=== PATIENT | male | born 1945 | race Caucasian/White ===

== ENCOUNTER 2019-12-10 18:41 | Observation (INO) | payer MEDICARE, SELFPAY ==
--- NOTE | ~2019-12-10 | CT_ITS ---
EXAMINATION: CTA chest PE protocol DATE: 12/10/2019 21:26 INDICATION: Midsternal chest pain/pressure. Shortness of breath. Positive d-dimer. TECHNIQUE: Computed tomography (CT) pulmonary angiogram of the chest was performed with 100 mL Omnipa que-350 intravenous contrast. Additional 3D reconstructions utilizing coronal maximum intensity proje ction (MIP) were performed. Automated exposure control and iterative reconstruction technique were em ployed. The dose-length product was 485.29 mGy-cm. COMPARISON: None FINDINGS: Could contrast opacification of the pulmonary arteries. There is moderate streak artifact from dense contrast in the superior vena cava and right atrium. Is also moderate to severe scattered respiratory motion artifact. Together this decreases sensitivity given in the lobar pulmonary arteries and rende rs evaluation in the segmental and more peripheral subsegmental pulmonary arteries is essentially non diagnostic. No definitive pulmonary embolism identified small bilateral pleural effusions. Scattered linear and bandlike discoid atelectasis in the left and right middle and bilateral lower lobes. Heart size is normal. There is a large pericardial effusion with diffuse mild smooth thickening of the per icardium. There is no leftward bowing of the ventricular septum to suggest tamponade not physiology. Atherosclerotic coronary artery calcifications. Aortic valve calcification. Thoracic aorta is normal in caliber with no dissection. Interval increase in size of a previously 2.3 x 1.1 cm subcarinal lymp h node currently measuring 3.1 x 2.1 cm. Several calcified gallstones within the normal gallbladder. Splenic calcifications consistent with old granulomatous disease. Mild thoracic spondylosis. IMPRESSION: 1. No central pulmonary embolism through the lobar pulmonary arteries. More peripheral assessment is essentially nondiagnostic due to moderate to severe respiratory motion and moderate streak artifact. 2. Small bilateral pleural effusions with scattered discoid atelectasis in the lingula, right middle and bilateral lower lobes. 3. Large pericardial effusion with mild smooth thickening of the pericardium but no leftward bowing o f the ventricular septum to suggest tamponade. 4. Interval enlargement of a now 3.1 x 2.1 cm subcarinal lymph node which could be reactive, lymphoma or metastatic. 5. Cholelithiasis. Reviewed, dictated and finalized at location A. ICATING MACHINE OPERATOR IMPRESSION: 1. No central pulmonary embolism through the lobar pulmonary arteries. More per ipheral assessment is essentially nondiagnostic due to moderate to severe respi ratory motion and moderate streak artifact. 2. Small bilateral pleural effusions with scattered discoid atelectasis in the lingula, right middle and bilateral lower lobes. 3. Large pericardial effusion with mild smooth thickening of the pericardium bu t no leftward bowing of the ventricular septum to suggest tamponade. 4. Interval enlargement of a now 3.1 x 2.1 cm subcarinal lymph node which could be reactive, lymphoma or metastatic. 5. Cholelithiasis.
--- NOTE | ~2019-12-10 | XR_ITS ---
EXAMINATION: XR chest 2V DATE: 12/10/2019 19:29 INDICATION: Hypoxia. Midsternal chest pressure and chest pain on exertion. TECHNIQUE: PA and lateral views of the chest were obtained. COMPARISON: Chest CT dated 08/06/2018 FINDINGS: Airspace opacities in the bilateral lower lung zones, left greater than right. Very small bilateral p leural effusions. No pneumothorax. Cardiomegaly. Mild thoracic kyphosis with mild to moderate spondyl osis. IMPRESSION: 1. Opacities in the bilateral lower lung zones, left greater than right which could represent pneumon ia, atelectasis, mild pulmonary edema or some combination thereof. 2. Small bilateral pleural effusions. 3. Cardiomegaly. Reviewed, dictated and finalized at location A. K ENGINE ASSEMBLER IMPRESSION: 1. Opacities in the bilateral lower lung zones, left greater than right which c ould represent pneumonia, atelectasis, mild pulmonary edema or some combination thereof. 2. Small bilateral pleural effusions. 3. Cardiomegaly.
--- NOTE | 2019-12-10 18:55 | ECG_ITS ---
Measurements Intervals [place] Rate: 104 P: 2 MN: 120 QRS: -14 QRSD: 97 T: 60 QT: 302 QTc: 398 Interpretive Statements SINUS TACHYCARDIA POSSIBLE LEFT ATRIAL ENLARGEMENT POSSIBLE LEFT VENTRICULAR HYPERTROPHY DELAYED PRECORDIAL R/S TRANSITION BASELINE WANDER- V4-V6 BORDERLINE ECG Electronically Signed On 12-11-2019 15:42:53 MECHANICAL UNIT REPAIRER by Jah Tomas D.O.
[2019-12-10 19:08] VITALS: BP 173/88; PULSE 110; RESP 33; TEMP 37.4; O2SAT 95
[2019-12-10 19:13] VITALS: PULSE 110
[2019-12-10 19:15] LABS: Basophils Absolute Auto 0.04 K/mm3 (0.00-0.10); Basophils Percent Auto 0.4 % (0.0-1.0); Eosinophils Absolute Auto 0.19 K/mm3 (0.02-0.50); Eosinophils Percent Auto 1.9 % (1.0-6.0); Hematocrit 30.6 % (37.0-46.0); Hemoglobin 9.7 g/dL (12.4-15.3); Immature Granulocyte Absolute 0.04 K/mm3 (0.00-0.00); Immature Granulocyte Percent A 0.4 % (0.0-0.0); Lymphocytes Percent Auto 6.1 % (18.0-42.0); Mean Corpuscular HGB Conc 31.7 g/dL (32.0-36.0); Mean Corpuscular Hemoglobin 27.7 pg (27.0-31.0); Mean Corpuscular Volume 87.4 fL (78.0-102.0); Mean Platelet Volume 8.8 fl (8.7-11.0); Monocytes Absolute Auto 0.27 K/mm3 (0.10-0.90); Monocytes Percent Auto 2.8 % (2.0-11.0); Neutrophils Absolute Auto 8.7 K/mm3 (1.7-7.2); Neutrophils Percent Auto 88.4 % (50.0-70.0); Platelet Count Result 549 K/mm3 (150-420); White Blood Count 9.8 K/mm3 (4.8-10.8)
--- NOTE | 2019-12-10 19:27 | ED.CHESTPAIN ---
HPI - Chest Pain General Chief Complaint: Chest Pain Stated Complaint: tightness in chest and SOB Source: patient Mode of arrival: ambulatory Limitations: no limitations History of Present Illness HPI narrative: 74-year-old male presents with some chest tightness left chest area started off and on over the last couple of days this morning became more intense left chest area with deep inspiration there is no cough no shortness of breath no nausea vomiting no diaphoresis, the patient has not had any fever or chills. Patient has a history of hyperlipidemia hypothyroidism, former smoker quit 14 years ago, has a brother with heart disease in his 60s. complaint: chest pain, chest heaviness and chest discomfort Onset (ago): day(s) Timing of current episode: episodic Onset: during rest and during exertion Pain location: left chest Pain radiation: none Severity: mild Quality: tightness Relieving factors: nothing Exacerbating factors: exertion and inspiration Risk Factors Coronary artery disease risk factors: hyperlipidemia Related Data Home Medications Medication Instructions Recorded Confirmed folic acid 1 mg PO DAILY 12/10/19 12/10/19 levothyroxine 200 mcg PO DAILY 12/10/19 12/10/19 lisinopril 5 mg PO DAILY 12/10/19 12/10/19 methotrexate sodium 12.5 mg PO WEEKLY 12/10/19 12/10/19 pravastatin 40 mg PO DAILY 12/10/19 12/10/19 Allergies Allergy/AdvReac Type Severity Reaction Status Date / Time coconut Allergy Swelling Verified 12/10/19 19:42 of Lip/Tongue/Throat Review of Systems Review of Systems: All systems reviewed & are unremarkable except as noted in HPI and below PMFSH Past Medical History Medical History HLD (hyperlipidemia) HTN (hypertension) Rheumatoid arteritis Exam Const: General: no acute distress and alert Orientation/consciousness: patient oriented x3 HENMT: Head: normal to inspection Eyes: Conjunctivae: conjunctivae normal Pupils: Equal, round and reactive pupils present Neck: Neck: normal visual inspection Chest: Chest palpation & inspection: normal inspection of the chest Resp: Effort & Inspection: normal respiratory effort Cardio: Rate: regular rate and tachycardic Rhythm: regular rhythm GI: Auscultation: normal bowel sounds : Testes: Testes normal Back/Spine/Pelvis: Back: no CVA tenderness Skin: General skin exam: normal color Rashes: no rashes Neuro: General: patient oriented x3, moves all extremities and no meningeal signs Extrem: General: normal to inspection Psych: Mental Status: mental status grossly normal Course Vital Signs Vital signs: Vital Signs Temperature 37.4 C 12/10/19 19:08 Pulse Rate 110 H 12/10/19 19:08 Respiratory Rate 33 H 12/10/19 19:08 Blood Pressure 173/88 H 12/10/19 19:08 Pulse Oximetry 95 12/10/19 19:08 Temperature 37.4 C 12/10/19 19:08 Pulse Rate 110 H 12/10/19 19:13 Respiratory Rate 33 H 12/10/19 19:08 Blood Pressure 173/88 H 12/10/19 19:08 Pulse Oximetry 95 12/10/19 19:08 MDM - Chest Pain Lab Data Attestation: I reviewed the patient's lab results. Result diagrams: 12/10/19 19:11 12/10/19 19:11 Labs: Lab Results 12/10/19 12/10/19 12/10/19 Range/Units 19:11 19:11 19:11 WBC 9.8 (4.8-10.8) K/mm3 RBC 3.50 L (4.70-6.10) M/mm3 Hgb 9.7 L (12.4-15.3) g/dL Hct 30.6 L (37.0-46.0) % MCV 87.4 (78.0-102.0) fL MCH 27.7 (27.0-31.0) pg MCHC 31.7 L (32.0-36.0) g/dL RDW 16.0 H (11.6-14.4) % Plt Count 549 H (150-420) K/mm3 MPV 8.8 (8.7-11.0) fl Immature Gran % (Auto) 0.4 H (0.0-0.0) % Neut % (Auto) 88.4 H (50.0-70.0) % Lymph % (Auto) 6.1 L (18.0-42.0) % Pine % (Auto) 2.8 (2.0-11.0) % Eos % (Auto) 1.9 (1.0-6.0) % Baso % (Auto) 0.4 (0.0-1.0) % Lymph # (Auto) 0.60 L (1.10-4.50) K/mm3 Pine # (Auto) 0.27 (0.10-0.90) K/mm3
[2019-12-10 19:29] LABS: INR 1.1; Partial Thromboplastin Time 29.1 SEC (22.3-31.6); Prothrombin Time 10.9 Seconds (9.64-11.0)
[2019-12-10 19:41] LABS: Alanine Aminotransferase 41 U/L (16-63); Albumin Level 2.4 g/dL (3.4-5.0); Alkaline Phosphatase 77 U/L (46-116); Anion Gap 18.4 mmol/L (7-16); Aspartate Amino Transferase 30 U/L (15-37); Bilirubin,Total 0.3 mg/dL (0.00-1.00); Blood Urea Nitrogen 30 mg/dL (7-18); Calcium 8.6 mg/dL (8.5-10.1); Carbon Dioxide 21 mmol/L (21-32); Chloride 103 mmol/L (98-108); Estimated CRCL calculation 43 ml/min; Estimated Glomerular Filt Rate 43; Glucose 129 mg/dL (70-99); Osmolality Calculated 294 mOsm/kg (285-295); Potassium 4.4 mmol/L (3.5-5.1); Sodium 138 mmol/L (136-145); Total Protein 8.1 g/dL (6.4-8.2)
[2019-12-10 19:42] LABS: Thyroid Stimulating Hormone 5.77 uIU/mL (0.36-3.74); Troponin I < 0.02 ng/mL (0.00-0.056)
[2019-12-10 19:50] VITALS: BP 147/69; PULSE 106; RESP 22; O2SAT 97
[2019-12-10] MEDS: SODIUM CHLORIDE 0.9% IV 1,000 ML 999 ML IV CONT (20:08)
--- NOTE | 2019-12-10 20:11 | PC.NURSE ---
OBSERVATION BED REQUEST TO MARQUISE REPLENISHMENT ANALYST AT 2007, RM 205 PROVIDED. REGISTRATION NOTIFIED.
--- NOTE | 2019-12-10 20:23 | PC.NURSE ---
TELEPHONE REPORT PROVIDED TO CARON GARCIA AT 2017.
[2019-12-10 20:24] VITALS: BP 151/87; PULSE 103; RESP 22; O2SAT 98
--- NOTE | 2019-12-10 20:44 | PC.NURSE ---
AZITHROMYCIN STILL INFUSING WHEN PT WAS TAKEN TO ROOM 205, SAMI REARDON AWARE
[2019-12-10 20:52] LABS: D Dimer 6.84 mg/L (0.19-0.50)
--- NOTE | 2019-12-10 20:57 | PC.NURSE ---
notified of elevated DDimer result of 6.84. New order received for CTA.
[2019-12-10 21:10] VITALS: BMI 27.2
[2019-12-10] MEDS: SODIUM CHLORIDE 0.9% IV 1,000 ML 100 ML IV CONT (21:34)
--- NOTE | 2019-12-10 22:03 | PC.NURSE ---
MD up to floor to review CTA result and speak with patient and family.
[2019-12-10 22:13] VITALS: BP 147/78; PULSE 108; RESP 24; TEMP 37.4; O2SAT 98
[2019-12-11] VITALS (8 sets, daily range): BP systolic 117–119; BP diastolic 60–68; PULSE 90–106; RESP 16–20; TEMP 36.3–37.4; O2SAT 92–98
[2019-12-11 02:06] LABS: Troponin I < 0.02 ng/mL (0.00-0.056)
[2019-12-11] MEDS: LEVOTHYROXINE SODIUM 100 MCG TABLET 200 MCG PO (05:41)
[2019-12-11] MEDS: LEVALBUTEROL NEB 1.25 MG/3 ML INHALATION (06:26)
[2019-12-11] MEDS: SODIUM CHLORIDE 0.9% IV 1,000 ML 100 ML IV CONT (07:45)
[2019-12-11 08:26] LABS: Basophils Absolute Auto 0.04 K/mm3 (0.00-0.10); Basophils Percent Auto 0.4 % (0.0-1.0); Eosinophils Absolute Auto 0.03 K/mm3 (0.02-0.50); Eosinophils Percent Auto 0.3 % (1.0-6.0); Hematocrit 26.1 % (37.0-46.0); Hemoglobin 8.5 g/dL (12.4-15.3); Immature Granulocyte Absolute 0.04 K/mm3 (0.00-0.00); Immature Granulocyte Percent A 0.4 % (0.0-0.0); Lymphocytes Absolute Auto 0.88 K/mm3 (1.10-4.50); Lymphocytes Percent Auto 7.7 % (18.0-42.0); Mean Corpuscular HGB Conc 32.6 g/dL (32.0-36.0); Mean Corpuscular Hemoglobin 28.1 pg (27.0-31.0); Mean Corpuscular Volume 86.1 fL (78.0-102.0); Mean Platelet Volume 8.9 fl (8.7-11.0); Monocytes Absolute Auto 0.51 K/mm3 (0.10-0.90); Monocytes Percent Auto 4.5 % (2.0-11.0); Neutrophils Absolute Auto 9.9 K/mm3 (1.7-7.2); Neutrophils Percent Auto 86.7 % (50.0-70.0); Platelet Count Result 472 K/mm3 (150-420); Red Blood Count 3.03 M/mm3 (4.70-6.10); Red Cell Distribution Width 16.6 % (11.6-14.4); White Blood Count 11.4 K/mm3 (4.8-10.8)
[2019-12-11 08:56] LABS: Hemoglobin A1C 6.7 % (<5.7)
[2019-12-11 08:57] LABS: Troponin I < 0.02 ng/mL (0.00-0.056)
[2019-12-11 08:58] LABS: Free T4 Free Thyroxine 1.37 ng/dL (0.76-1.46)
[2019-12-11] MEDS: lisinopriL 5 MG TABLET PO (09:14)
[2019-12-11] MEDS: FOLIC ACID 1 MG TABLET PO (09:14)
[2019-12-11] MEDS: IBUPROFEN 400 MG TABLET 800 MG PO (09:14)
[2019-12-11] MEDS: PRAVASTATIN SODIUM 20 MG TABLET 40 MG PO (09:14)
[2019-12-11 09:23] LABS: BNP 283 pg/mL (0-100)
--- NOTE | 2019-12-11 10:45 | PCDIET ---
Report called to Telma at [facility]. Patient will be going to room Crew 15.
--- NOTE | 2019-12-11 12:30 | PC.NURSE ---
[facility] here to transport patient to [facility]. Patient transferred to [facility] and left by EMS
--- NOTE | 2019-12-11 12:40 | PM.IMHP ---
H&P: HPI History of Present Illness Chief complaint: tightness in chest and SOB Narrative: Shantanu Conrad is a 74 year old male that was admitted for chest tightness and shortness of breath . patient has a past medical history of hypertension hyperlipidemia and rheumatoid arthritis. According to patient yesterday he did his 30 minutes walk and felt a bit uncomfortable with shortness of breath. Later that day he went to his granddaughter's volleyball game. according to patient he was unable to stay for the full length of the volleyball game due to shortness of breath and him being uncomfortable which chest tightness. at that time patient asked his to take him home so that he can get some rest, his suggested that they proceed to the ED. Patient is being admitted for pneumonia and pericardial effusion. While in the ED patient's D-dimer was elevated CT was completed. CT indicated a large pericardial effusion . It also indicated in large lymph Nodes 3.1 x 2.1 which could be reactive, lymphoma or metastatic, his chest x-ray did indicate possible pneumonia with a small bilateral pleural effusion and mild pulmonary edema. Patient white count was 11.4 in his BNP was 283 troponins were negative blood cultures were collected EKG indicated sinus tachycardia with heart rates in the 104 vital signs are 37.4 heart rate 110, respiratory rate 33, blood pressure 173/88, 95% air. Hemoglobin on admission 9.7. Dr. Holt was contacted by ED doctor. requested occult blood. Unable to obtain occult blood due to patient transferring to outside hospital. This patient will be transferred to outside hospital for treatment of pericardia effusion. Patient would like to go to [facility] in [place]. Patient has been accepted to [facility] in [place] by . patient is stable on discharge and is in no obvious distress. he will be transported to [facility] via EMS Review of Systems Constitutional: Constitutional: Denies chills, Denies fatigue, Denies fever(s), Denies headache(s) and Denies weakness Cardiovascular: Cardiovascular: Denies chest pain at rest, Denies chest pain with activity, Denies syncope, Denies palpitations, Denies dyspnea on exertion, Denies orthopnea and Reports other ( chest tightness) Respiratory: Respiratory: Denies chest congestion, Denies cough, Denies hemoptysis, Reports dyspnea, Reports dyspnea on exertion, Denies wheezing and Reports other ( shortness of breath) Gastrointestinal: Gastrointestinal: Reports no additional gastrointestinal complaints Musculoskeletal: Musculoskeletal: Reports no additional musculoskeletal complaints Neurologic: Reports system reviewed and no additional complaints, except as documented, Denies vertigo, Denies dizziness, Denies syncope, Denies headache(s), Denies loss of vision and Denies numbness Psychiatric: Psychiatric: Reports no additional psychiatric complaints and Denies confusion [facility] Past Medical History Medical History HLD (hyperlipidemia) HTN (hypertension) Rheumatoid arteritis Social History Social History Smoking status: Former smoker Tobacco type: cigarettes Second hand tobacco smoke exposure: No Alcohol intake: never Substance use: former Substance use type: does not use Gender identity (if verbalized by the patient): Male Spiritual care concerns: No Agree to blood products: Yes Meds Home Medications and Allergies Home Medications Medication Instructions Recorded Confirmed Type folic acid 1 mg PO DAILY 12/10/19 12/10/19 History levothyroxine 200 mcg PO DAILY 12/10/19 12/10/19 History lisinopril 5 mg PO DAILY 12/10/19 12/10/19 History methotrexate sodium 12.5 mg PO WEEKLY 12/10/19 12/10/19 History pravastatin 40 mg PO DAILY 12/10/19 12/10/19 History azithromycin [Zithromax] 500 mg IV Q24H #30 ea 12/11/19 Rx
--- NOTE | 2019-12-11 13:02 | PM.DS ---
DS: Diagnosis Discharge Diagnosis (1) Pneumonia: Qualifiers: Laterality: left Lung location: lower lobe of lung Pneumonia type: due to unspecified organism Qualified Code(s): J18.9 - Pneumonia, unspecified organism <Hernandezlester JanethROCHELLE Vyas - Last Filed: 12/11/19 13:03> Code(s): J18.9 - Pneumonia, unspecified organism <ROCHELLE Mascorro - Last Filed: 12/11/19 13:03> Status: Acute <Myriam JanethROCHELLE Vyas - Last Filed: 12/11/19 13:03> Assessment and Plan: CT of the chest indicate pneumonia with mouth pulmonary edema patient placed on Rocephin patient will transfer to [facility] <ROCHELLE Mascorro - Last Filed: 12/11/19 13:03> (2) HTN (hypertension): Code(s): I10 - Essential (primary) hypertension <ROCHELLE Mascorro - Last Filed: 12/11/19 13:03> Status: Acute <ROCHELLE Mascorro - Last Filed: 12/11/19 13:03> Assessment and Plan: patient blood pressure 117/68 stable - continue home antihypertension medication <ROCHELLE Mascorro - Last Filed: 12/11/19 13:03> (3) HLD (hyperlipidemia): Code(s): E78.5 - Hyperlipidemia, unspecified <ROCHELLE Mascorro - Last Filed: 12/11/19 13:03> Status: Acute <ROCHELLE Mascorro - Last Filed: 12/11/19 13:03> Assessment and Plan: continue statins <ROCHELLE Mascorro - Last Filed: 12/11/19 13:03> (4) Pericardial effusion: Code(s): I31.3 - Pericardial effusion (noninflammatory) <GOLDEN MascorroC - Last Filed: 12/11/19 13:03> Status: Acute <ROCHELLE Mascorro - Last Filed: 12/11/19 13:03> Assessment and Plan: -CTA indicated large pericardial effusion - patient is stable at this time - patient transferred to [facility] accepted by <ROCHELLE Mascorro - Last Filed: 12/11/19 13:03> DS: Summary Hospital Course Hospital Course: Shantanu Conrad is a 74 year old male that was admitted for chest tightness and shortness of breath . patient has a past medical history of hypertension hyperlipidemia and rheumatoid arthritis. According to patient yesterday he did his 30 minutes walk and felt a bit uncomfortable with shortness of breath. Later that day he went to his granddaughter's volleyball game. according to patient he was unable to stay for the full length of the volleyball game due to shortness of breath and him being uncomfortable which chest tightness. at that time patient asked his to take him home so that he can get some rest, his suggested that they proceed to the ED. Patient is being admitted for pneumonia and pericardial effusion. While in the ED patient's D-dimer was elevated CT was completed. CT indicated a large pericardial effusion . It also indicated in large lymph Nodes 3.1 x 2.1 which could be reactive, lymphoma or metastatic, his chest x-ray did indicate possible pneumonia with a small bilateral pleural effusion and mild pulmonary edema. Patient white count was 11.4 in his BNP was 283 troponins were negative blood cultures were collected EKG indicated sinus tachycardia with heart rates in the 104 vital signs are 37.4 heart rate 110, respiratory rate 33, blood pressure 173/88, 95% air. Hemoglobin on admission 9.7. Dr. Holt was contacted by ED doctor. requested occult blood. Unable to obtain occult blood due to patient transferring to outside hospital. This patient will be transferred to outside hospital for treatment of pericardia effusion. Patient would like to go to [facility] in [place]. Patient has been accepted to [facility] in [place] by . patient is stable on discharge and is in no obvious distress <ROCHELLE Mascorro - Last Filed: 12/11/19 13:03> Time Spent with Patient Time attestation: Total time spent providing and/or coordinating discharge services: <ROCHELLE Mascorro
== END 2019-12-11 12:30 | disposition short-term general hospital (02) ==
LOC: CHSED 20:03 → CHS2ND 20:12
PROVIDERS: Nurse Practitioner; Admitting Provider Emergency Medicine; Emergency Provider Emergency Medicine; PCP Internal Medicine; Visit Provider Emergency Medicine
DX: I31.3 Pericardial effusion (noninflammatory) (principal); J18.9 Pneumonia, unspecified organism; R59.0 Localized enlarged lymph nodes; E78.5 Hyperlipidemia, unspecified; I10 Essential (primary) hypertension; M06.9 Rheumatoid arthritis, unspecified; K80.20 Calculus of gallbladder without cholecystitis without obstruction; Z79.899 Other long term (current) drug therapy
CPT/HCPCS: 36415; 71046; 71275; 80053; 83036; 83880; 84439; 84443; 84484; 85025; 85380; 85610; 85730; 87040; 93005; 94640; 96361; 96365; 96368; 99284; 99285; A9270; G0378; J0456; J0696; J7030; Q9965

== ENCOUNTER 2020-01-01 07:53 | Outpatient (CLI) | payer MEDICARE, SELFPAY ==
--- NOTE | ~2020-01-01 | CT_ITS ---
EXAMINATION: CT chest w con DATE: 01/01/2020 08:55 INDICATION: Pneumonia, lymphadenopathy TECHNIQUE: Transaxial computed tomographic images of the chest were obtained after the administration of 75 cc of Omnipaque 350 intravenous contrast. The dose-length product (DLP) was 236.64 mGy-cm. Ite rative reconstruction was used. COMPARISON: 12/10/2019 FINDINGS: Atelectasis and airspace opacities of the lower lobes persists but has improved since the c omparison examination. There is a small stable right pleural effusion. A left pleural effusion has sl ightly increased in size and demonstrates some loculation. There is no pneumothorax. The heart size i s normal. There is interval decrease in size of the previously described pericardial effusion, now sm all. The previously described 3.1 x 2.1 cm subcarinal lymph node now measures 1.9 x 1.1 cm. Cholelith iasis is again noted. There is mild thoracic spondylosis. IMPRESSION: 1. Persistent but improved airspace opacities of the lung bases, consistent with resolving atelectasi s. 2. Decrease in size of subcarinal lymph node, likely resolving reactive change. 3. Slight increase in size of a left pleural effusion which now demonstrates some loculation. 4. Small but decreased pericardial effusion. Reviewed, dictated and finalized at location A. INSPECTOR IMPRESSION: 1. Persistent but improved airspace opacities of the lung bases, consistent wit h resolving atelectasis. 2. Decrease in size of subcarinal lymph node, likely resolving reactive change. 3. Slight increase in size of a left pleural effusion which now demonstrates so me loculation. 4. Small but decreased pericardial effusion.
[2020-01-01 08:13] LABS: Estimated Glomerular Filt Rate 45
== END 2020-01-01 07:54 | disposition home or self-care (01) ==
PROVIDERS: PCP Internal Medicine
DX: R59.9 Enlarged lymph nodes, unspecified (principal)
CPT/HCPCS: 71260; Q9965

== ENCOUNTER 2020-01-09 11:16 | Emergency (ER) | payer MEDICARE, SELFPAY ==
--- NOTE | ~2020-01-09 | XR_ITS ---
EXAMINATION: XR chest 2V DATE: 01/09/2020 13:11 INDICATION: Dyspnea. TECHNIQUE: Frontal and lateral views of the chest were obtained. COMPARISON: Chest 2 views 12/10/2019, chest CT 01/01/2020 FINDINGS: There is a small right pleural effusion. There is a moderate-sized loculated left pleural e ffusion. There are airspace opacities in right lower lung zone and left mid and lower lung zones. No pneumothorax. The heart size is normal. IMPRESSION: 1. Small right pleural effusion and worsened moderate-sized loculated left pleural effusion. 2. Airspace opacities in right lower lung zone and left mid and lower lung zones with worsening on th e left, consistent with atelectasis versus pneumonia. Reviewed, dictated and finalized at location A. [employer] IMPRESSION: 1. Small right pleural effusion and worsened moderate-sized loculated left pleu ral effusion. 2. Airspace opacities in right lower lung zone and left mid and lower lung zone s with worsening on the left, consistent with atelectasis versus pneumonia.
[2020-01-09 11:48] VITALS: BP 161/89; PULSE 97; RESP 22; TEMP 36.9; O2SAT 95
--- NOTE | 2020-01-09 11:59 | ED.SOB ---
HPI - SOB/Dyspnea General Chief Complaint: Shortness of Breath/Dyspnea Stated Complaint: pneumonia Time Seen by Provider: 01/09/20 11:54 Source: patient and RN notes reviewed Mode of arrival: ambulatory Limitations: no limitations History of Present Illness HPI Narrative: patient presents with increasing shortness of breath. Going on for couple of days. He says that he normally walks 25-30 minutes every day. He walked 2 days ago but then became short of breath towards the end of the walk. Then yesterday he only walk a few feet and was significantly dyspneic. He was recently in the hospital in [facility] and he also had a small pericardial effusion. He had some blood work done which showed an elevated white blood cell count. He also has a history of iron deficiency anemia and gets on and off constipation with use of his iron supplement. MD elicited complaint: shortness of breath Pertinent past history: pneumonia Onset (ago): day(s) (2) Context: recent illness and occurred during exertion Timing: intermittent Severity: moderate Exacerbating factors: exertion Relieving factors: rest Treatment prior to arrival: none Related Data Home oxygen amount: none Home Medications Medication Instructions Recorded Confirmed folic acid 1 mg PO DAILY 12/10/19 01/09/20 lisinopril 5 mg PO DAILY 12/10/19 01/09/20 methotrexate sodium 12.5 mg PO WEEKLY 12/10/19 01/09/20 pravastatin 40 mg PO DAILY 12/10/19 01/09/20 Allergies Allergy/AdvReac Type Severity Reaction Status Date / Time coconut Allergy Swelling Verified 12/10/19 19:42 of Lip/Tongue/Throat Review of Systems Constitutional: Constitutional: Denies chills and Denies fever(s) ENT: Reports system reviewed and no additional complaints, except as documented Cardiovascular: Cardiovascular: Reports no additional cardiovascular complaints and Denies chest pain Respiratory: Respiratory: Denies cough Gastrointestinal: Gastrointestinal: Reports constipation ( Intermittent) Musculoskeletal: Musculoskeletal: Reports no additional musculoskeletal complaints Neurologic: Reports system reviewed and no additional complaints, except as documented Hematologic/Lymphatic: Hematologic/Lymphatic: Reports no additional hematologic/lymphatic complaints Allergic/Immunologic: Allergic/Immunologic: Reports no additional allergic/immunologic complaints [facility] Past Medical History Medical History (Updated 01/09/20 @ 15:59 by Garrett Villanueva MD) HLD (hyperlipidemia) HTN (hypertension) Rheumatoid arteritis Surgical History Surgical History (Updated 01/09/20 @ 14:38 by Garrett Villanueva MD) History of appendectomy History of prostatectomy Social History Social History Smoking status: Former smoker Tobacco type: cigarettes Second hand tobacco smoke exposure: No Alcohol intake: never Substance use: former Substance use type: does not use Gender identity (if verbalized by the patient): Male Spiritual care concerns: No Agree to blood products: Yes Exam Const: General: healthy appearing, no acute distress and alert Nutritional Appearance: well nourished Orientation/consciousness: patient oriented x3 HENMT: Head: normal to inspection Ears: external ears normal General nose exam: Normal external nose present Face and sinus: normal facial exam Eyes: Conjunctivae: conjunctivae normal Pupils: Equal, round and reactive pupils present EOM: EOMs intact bilaterally Neck: Neck: normal visual inspection and no lymphadenopathy Resp: Effort & Inspection: normal respiratory effort Auscultation: rhonchi left upper and right lower and breath sounds absent on th left (middle and base) GI: GI Palp: Yes Soft to palpation and No Tenderness to palpation present (GI) Auscultation: normal bowel sounds Back/Spine/Pelvis: Cervical Spine: cervical ROM normal Thoracic/Lumbar Spine: thoraco-lumbar ROM normal
[2020-01-09 12:00] VITALS: PULSE 96
[2020-01-09 13:01] LABS: Basophils Absolute Auto 0.07 K/mm3 (0.00-0.10); Basophils Percent Auto 0.5 % (0.0-1.0); Eosinophils Absolute Auto 0.11 K/mm3 (0.02-0.50); Eosinophils Percent Auto 0.8 % (1.0-6.0); Hematocrit 28.4 % (37.0-46.0); Immature Granulocyte Absolute 0.13 K/mm3 (0.00-0.00); Immature Granulocyte Percent A 0.9 % (0.0-0.0); Lymphocytes Absolute Auto 0.95 K/mm3 (1.10-4.50); Lymphocytes Percent Auto 6.8 % (18.0-42.0); Mean Corpuscular HGB Conc 31.7 g/dL (32.0-36.0); Mean Corpuscular Hemoglobin 27.4 pg (27.0-31.0); Mean Corpuscular Volume 86.6 fL (78.0-102.0); Mean Platelet Volume 8.8 fl (8.7-11.0); Monocytes Absolute Auto 0.79 K/mm3 (0.10-0.90); Monocytes Percent Auto 5.7 % (2.0-11.0); Neutrophils Absolute Auto 11.9 K/mm3 (1.7-7.2); Neutrophils Percent Auto 85.3 % (50.0-70.0); Platelet Count Result 456 K/mm3 (150-420); Red Blood Count 3.28 M/mm3 (4.70-6.10)
[2020-01-09 13:19] LABS: BNP 63.7 pg/mL (0-100)
[2020-01-09 13:20] LABS: Alanine Aminotransferase 15 U/L (16-63); Albumin Level 2.3 g/dL (3.4-5.0); Alkaline Phosphatase 65 U/L (46-116); Anion Gap 14.3 mmol/L (7-16); Aspartate Amino Transferase 18 U/L (15-37); Bilirubin,Total 0.3 mg/dL (0.00-1.00); Blood Urea Nitrogen 41 mg/dL (7-18); Calcium 8.5 mg/dL (8.5-10.1); Carbon Dioxide 22 mmol/L (21-32); Chloride 103 mmol/L (98-108); Estimated CRCL calculation 32 ml/min; Estimated Glomerular Filt Rate 33; Glucose 106 mg/dL (70-99); Magnesium 2.2 mg/dL (1.8-2.4); Osmolality Calculated 290 mOsm/kg (285-295); Potassium 4.3 mmol/L (3.5-5.1); Sodium 135 mmol/L (136-145); Total Protein 7.9 g/dL (6.4-8.2)
[2020-01-09 13:22] LABS: Troponin I < 0.02 ng/mL (0.00-0.056)
[2020-01-09 13:31] VITALS: BP 127/66; PULSE 84; RESP 22; O2SAT 96
[2020-01-09 13:37] LABS: CRP > 25.0 mg/dL (0.0-0.9)
--- NOTE | 2020-01-09 14:28 | PC.NURSE ---
Pt requests [facility] for [facility], [facility] contacted.
--- NOTE | 2020-01-09 14:29 | PC.NURSE ---
Call placed to [place]'s access line for possible transfer. Awaiting call back from hospitalist.
--- NOTE | 2020-01-09 15:06 | PC.NURSE ---
Dr. Villanueva speaking with Dr. Murray at [place].
--- NOTE | 2020-01-09 15:48 | PC.NURSE ---
Pt to bathroom via wheelchair. continue to await call from [facility] with room assignment and to give report. pt aware. spouse at bedside.
[2020-01-09 15:49] VITALS: BP 160/81; PULSE 99; RESP 22; O2SAT 94
--- NOTE | 2020-01-09 16:39 | PC.NURSE ---
Report to Nery at [facility]. [facility] contacted for transfers, states it may be a wait for an ambulance. pt and family updated.
[2020-01-09 16:45] VITALS: BP 137/76; PULSE 96; RESP 22; O2SAT 94
[2020-01-09 17:40] VITALS: BP 133/71; PULSE 92; RESP 22; O2SAT 93
== END 2020-01-09 17:42 | disposition short-term general hospital (02) ==
PROVIDERS: Emergency Provider Emergency Medicine; PCP Internal Medicine
DX: J90 Pleural effusion, not elsewhere classified (principal); J18.9 Pneumonia, unspecified organism; Z87.891 Personal history of nicotine dependence
CPT/HCPCS: 36415; 71046; 80053; 83605; 83735; 83880; 84484; 85025; 86140; 87040; 96365; 96367; 99284; 99285; J2543; J3370

== ENCOUNTER 2020-02-01 09:42 | Outpatient (CLI) | payer MEDICARE, SELFPAY ==
--- NOTE | ~2020-02-01 | XR_ITS ---
EXAMINATION: XR chest 2V DATE: 02/01/2020 10:06 INDICATION: Pneumonia TECHNIQUE: AP, PA and lateral views of the chest were obtained COMPARISON: Chest radiograph dated 01/09/2020 FINDINGS: Left upper extremity peripherally inserted central venous catheter (PICC) tip at the caudal superior vena cava. Small bilateral pleural effusions with interval decrease on the left and increased on th e right. Linear opacities in the bilateral lower lung zones and favor discoid atelectasis over pneumo shirley. No pneumothorax. The cardiomediastinal silhouette is normal. Mild thoracic spondylosis. IMPRESSION: 1. Small bilateral pleural effusions with mild atelectasis in the lower lung zones, improved on the l eft and with slight increase on the right. Reviewed, dictated and finalized at location A. IMPRESSION: 1. Small bilateral pleural effusions with mild atelectasis in the lower lung zo phuong, improved on the left and with slight increase on the right.
== END 2020-02-01 09:43 | disposition home or self-care (01) ==
LOC: CHSIMG 09:48
PROVIDERS: PCP Internal Medicine
DX: J18.9 Pneumonia, unspecified organism (principal)
CPT/HCPCS: 71046

== ENCOUNTER 2020-02-24 15:06 | Outpatient (CLI) | payer MEDICARE, SELFPAY ==
--- NOTE | ~2020-02-24 | XR_ITS ---
EXAMINATION: XR chest 2V EXAM DATE: 02/24/2020 15:22 INDICATION: Follow-up pneumonia. TECHNIQUE: Frontal and lateral projections of the chest obtained and reviewed. Comparison is made to prior examination from 02/01/2020, 01/09/2020. FINDINGS: Bibasilar linear opacities, scarring/atelectasis unchanged with flattened appearing diaphr agm, mild hyperinflation. No confluent consolidation, pneumothorax or pleural effusion suspected. The re are mild bony degenerative changes. There is no significant interval change. IMPRESSION: 1. Bibasilar linear opacities, scarring/atelectasis. Reviewed, dictated and finalized at location G.
== END 2020-02-24 15:07 | disposition home or self-care (01) ==
LOC: CHSIMG 15:11
PROVIDERS: PCP Internal Medicine
DX: J18.9 Pneumonia, unspecified organism (principal)
CPT/HCPCS: 71046

== ENCOUNTER 2020-05-07 07:39 | Outpatient (CLI) | payer MEDICARE, SELFPAY ==
--- NOTE | ~2020-05-07 | US_ITS ---
EXAMINATION: US aorta DATE: 05/07/2020 09:36 INDICATION: Abdominal aortic aneurysm TECHNIQUE: Grayscale, color Doppler, and pulsed Doppler images of the aorta and common iliac arteries were obtained. COMPARISON: 04/02/2019 FINDINGS: The proximal aorta measures 2.0 cm. The mid aorta measures 2.3 cm. Uniform infrarenal abdominal aorti c aneurysm measuring up to 3.4 cm tapering to 1.7 cm at the bifurcation. The right common iliac arter y measures 1.1 cm. The left common iliac artery measures 1.3 cm. IMPRESSION: 1. No significant interval change in a fusiform infrarenal abdominal aortic aneurysm measuring up to 3.4 cm in maximal diameter. Reviewed, dictated and finalized at location A. IMPRESSION: 1. No significant interval change in a fusiform infrarenal abdominal aortic ane urysm measuring up to 3.4 cm in maximal diameter.
--- NOTE | ~2020-05-07 | CT_ITS ---
EXAMINATION: CT lung screening DATE: 05/07/2020 08:34 INDICATION: Personal history of tobacco dependence, prior smoker with 30 pack year history TECHNIQUE: Computed tomography (CT) of the chest was performed without intravenous contrast. The dose -length product (DLP) was 114.22 mGy-cm. Automated exposure control and iterative reconstruction tech Sapheneia were employed. COMPARISON: 01/01/2020, 02/16/2018 FINDINGS: No suspicious pulmonary nodules are identified. There are small pleural effusions with inte rval decrease in size. Areas of rounded atelectasis are present in the lower lobes. There is no pneum othorax. Mild emphysema is noted. Calcified pulmonary nodules and calcified right hilar and mediastin al lymph nodes are consistent with old granulomatous disease. The previously described enlarged subca rinal lymph node is now normal in size. There are chronic left axillary lymph nodes measuring upper l imits of normal in size. The heart size is normal. A stone is present in the nondistended gallbladder . Punctate calcifications in an otherwise normal spleen likely represent healed granulomatous disease . There is a stable 1.2 cm cyst of the left hepatic lobe. Calcified coronary artery atherosclerosis i s noted. IMPRESSION: 1. Lung-RADS category 1: Negative. Continue annual screening with noncontrast low-dose chest CT in 12 months. Reviewed, dictated and finalized at location A. IMPRESSION: 1. Lung-RADS category 1: Negative. Continue annual screening with noncontrast l ow-dose chest CT in 12 months.
== END 2020-05-07 07:40 | disposition home or self-care (01) ==
LOC: CHSIMG 07:43
PROVIDERS: PCP Internal Medicine; Visit Provider Internal Medicine
DX: I71.4 Abdominal aortic aneurysm, without rupture (principal); Z12.2 Encounter for screening for malignant neoplasm of respiratory organs; Z87.891 Personal history of nicotine dependence
CPT/HCPCS: 76775; G0297

== ENCOUNTER 2021-09-08 08:24 | Outpatient (CLI) | payer MEDICARE, SELFPAY ==
--- NOTE | ~2021-09-08 | CT_ITS ---
EXAMINATION: CT lung screening EXAM DATE: 09/08/2021 08:55 INDICATION: Personal history of tobacco use, Pulmonary Nodule, AAA hx tobacco dependence, hx prostate CA 19yrs ago, no complaints. TECHNIQUE: Spiral low dose CT of the chest without contrast. Axial, coronal and sagittal images were reviewed. The dose-length product (DLP) for this examination was 116.95 mGy-cm. The exposure was t ailored according to patient size (auto mA exposure control), and iterative reconstruction (ASIR) was used as additional dose reduction technique. Comparison is made to prior examination from 05/07/2020. FINDINGS: There is mild bronchiectasis. There is linear by basilar subsegmental atelectasis unchange d. No suspicious nodular opacities. Tracheobronchial tree is patent. There is no mediastinal, michelle r or axillary lymphadenopathy. There are no pleural or pericardial effusions. There is no pneumot horax. Heart normal in size. There is mild coronary arterial calcification, arterial sclerosis. P eripherally calcified cholelithiasis. There is a left liver lobe 1.2 cm hypodensity consistent with c yst. There is mild thoracic spondylosis without osteoblastic or osteolytic lesions identified. There is ossification posterior to the T7 vertebral body narrowing the spinal canal by 50 or 60%. Sma ller ossification posterior to the T8-9 level. IMPRESSION: Lung-RADS category 1, negative (<1%chance of malignancy); recommend continued LDCT screen ing in 1 year. Reviewed, dictated and finalized at location A. IMPRESSION: Lung-RADS category 1, negative (<1%chance of malignancy); recommend continued LDCT screening in 1 year.
--- NOTE | ~2021-09-08 | US_ITS ---
EXAMINATION: US aorta DATE: 09/08/2021 08:44 INDICATION: Abdominal aortic aneurysm TECHNIQUE: Grayscale, color Doppler, and pulsed Doppler images of the aorta and common iliac arteries were obtained. COMPARISON: 05/07/2020 FINDINGS: The proximal aorta measures 2.6 cm. The mid aorta measures 2.1 cm. Fusiform ectasia of the infrarenal abdominal aorta which measures up to a maximum of 3.0 cm in the current study tapering to 2.2 cm at the distal aorta. The right common iliac artery measures 1.0 cm. The left common iliac artery measure s 1.0 cm. IMPRESSION: 1. Fusiform ectasia of the abdominal aorta appears slightly decreased in size now measuring 3.0 cm in maximal diameter. Reviewed, dictated and finalized at location A. IMPRESSION: 1. Fusiform ectasia of the abdominal aorta appears slightly decreased in size n ow measuring 3.0 cm in maximal diameter.
== END 2021-09-08 08:25 | disposition home or self-care (01) ==
LOC: CHSIMG 08:26
PROVIDERS: PCP Internal Medicine; Visit Provider Internal Medicine
DX: R91.1 Solitary pulmonary nodule (principal); I71.4 Abdominal aortic aneurysm, without rupture; Z12.2 Encounter for screening for malignant neoplasm of respiratory organs; Z87.891 Personal history of nicotine dependence
CPT/HCPCS: 71271; 76775

== ENCOUNTER 2022-01-13 00:37 | Day surgery (SDC) | payer MEDICARE, SELFPAY ==
[2022-01-03 16:05] VITALS: BMI 25.4
--- NOTE | 2022-01-12 13:50 | WPDANESEPPF ---
Anes - Initial Pre Proc Eval Procedure: Operation Date: 01/13/22 09:30 Proposed Procedures p Screening Colonoscopy - Samir Drew DO Date/Time: 01/12/22 13:50 Surgeon: Samir Drew DO Pre Op Diagnosis: hx of colon polyps Patient Data Age: 76 Gender: M Height: 1.83 m Weight: 85 kg Allergies Allergy/AdvReac Type Severity Reaction Status Date / Time coconut Allergy Swelling Verified 01/13/22 08:26 of Lip/Tongue/Throat Home Medications Medication Instructions Recorded Confirmed Type folic acid 1 mg PO DAILY 12/10/19 01/03/22 History lisinopril 5 mg PO DAILY 12/10/19 01/03/22 History methotrexate sodium 12.5 mg PO WEEKLY 12/10/19 01/03/22 History pravastatin 40 mg PO DAILY 12/10/19 01/03/22 History coQ10 (ubiquinol) 200 mg PO DAILY 01/03/22 01/03/22 History levothyroxine 200 mcg PO DAILY 01/03/22 01/03/22 History omeprazole [Prilosec] 20 mg PO DAILY 01/03/22 01/03/22 History toigcvh-merw-ailcu-oreg-capryl 1 cap PO DAILY 01/03/22 01/03/22 History Patient hx anesthesia problems: none Family hx anesthesia problems: none Results Review: All pre-operative results and documents have been reviewed as part of the pre-operative evaluation. [facility] Past Medical History Medical History (Updated 01/13/22 @ 08:56 by Sixto Up DO) HLD (hyperlipidemia) HTN (hypertension) Hypothyroidism Rheumatoid arteritis Surgical History Surgical History (Updated 01/09/20 @ 14:38 by Garrett Villanueva MD) History of appendectomy History of prostatectomy Social History Social History Smoking status: Former smoker Tobacco type: cigarettes Second hand tobacco smoke exposure: No Alcohol intake: current Alcohol use details: Occasionally Substance use: former Substance use type: does not use Living arrangements: with family Gender identity (if verbalized by the patient): Male Spiritual care concerns: No Agree to blood products: Yes Anes - Eval Final PreProcedure Day of Procedure 01/12/22 13:50 Patient weight: overweight Heart: regular rate and rhythm Lungs: clear to auscultation and normal air movement Airway: Mallampati scale class II Neurological: alert and oriented Last oral intake: >/= 8 hours ASA classification: III Emergent: no Anesthetic plan: proceed Anesthesia type and monitoring: general GIVS and standard monitoring Results Review: All pre-operative results and documents have been reviewed as part of the pre-operative evaluation. Informed Consent: The patient's anesthetic plan and its attendant risks and benefits were discussed with the patient/family/POA. Questions were solicited and answers provided to the satisfaction of the patient/family/POA.
[2022-01-13 08:28] VITALS: BP 150/64; PULSE 95; RESP 18; TEMP 36.4; O2SAT 99
[2022-01-13] MEDS: LACTATED RINGERS 1,000 ML 150 ML IV CONT (08:37)
--- NOTE | 2022-01-13 09:16 | PM.IMHP ---
H&P: HPI History of Present Illness Date/Time: 01/13/22 09:16 Chief Complaint: history of colon polyps Narrative: this is a 76-year-old man who presents for colonoscopy. Last colonoscopy was 5 years ago. Several polyps were removed at that time. Denies any hematochezia or melena. Denies any family history of colon cancer. Review of Systems Review of Systems: All systems reviewed & are unremarkable except as noted in HPI and below Constitutional: Constitutional: Denies chills, Denies fever(s), Denies headache(s) and Denies weight loss Eyes: Eyes: Denies change in vision ENT: Denies dizziness, Denies headache(s), Denies neck mass and Denies throat swelling Cardiovascular: Cardiovascular: Denies chest pain, Denies lightheadedness and Denies dyspnea Respiratory: Respiratory: Denies cough, Denies dyspnea and Denies wheezing Gastrointestinal: Gastrointestinal: Denies abdominal pain, Denies change in bowel habits, Denies nausea and Denies vomiting Genitourinary: Genitourinary: Denies hematuria and Denies dysuria Musculoskeletal: Musculoskeletal: Reports as per HPI Integumentary/Breasts: Skin/Breast: Reports as per HPI Neurologic: Denies dizziness and Denies headache(s) Allergic/Immunologic: Allergic/Immunologic: Denies throat swelling and Denies wheezing [facility] Past Medical History Medical History (Updated 01/13/22 @ 09:16 by Samir Drew DO) HLD (hyperlipidemia) HTN (hypertension) Hypothyroidism Rheumatoid arteritis Surgical History Surgical History (Updated 01/09/20 @ 14:38 by Garrett Villanueva MD) History of appendectomy History of prostatectomy Social History Social History Smoking status: Former smoker Tobacco type: cigarettes Second hand tobacco smoke exposure: No Alcohol intake: current Alcohol use details: Occasionally Substance use: former Substance use type: does not use Living arrangements: with family Gender identity (if verbalized by the patient): Male Spiritual care concerns: No Agree to blood products: Yes Meds Home Medications and Allergies Home Medications Medication Instructions Recorded Confirmed Type folic acid 1 mg PO DAILY 12/10/19 01/03/22 History lisinopril 5 mg PO DAILY 12/10/19 01/03/22 History methotrexate sodium 12.5 mg PO WEEKLY 12/10/19 01/03/22 History pravastatin 40 mg PO DAILY 12/10/19 01/03/22 History coQ10 (ubiquinol) 200 mg PO DAILY 01/03/22 01/03/22 History levothyroxine 200 mcg PO DAILY 01/03/22 01/03/22 History omeprazole [Prilosec] 20 mg PO DAILY 01/03/22 01/03/22 History ectsnqq-bqae-mnags-oreg-capryl 1 cap PO DAILY 01/03/22 01/03/22 History Allergies Allergy/AdvReac Type Severity Reaction Status Date / Time coconut Allergy Swelling Verified 01/13/22 08:26 of Lip/Tongue/Throat Vital Signs Vital Signs - 24 hr 01/13/22 08:28 Temperature 36.4 C Pulse Rate 95 Respiratory Rate 18 Blood Pressure 150/64 H Pulse Oximetry 99 Exam Const: General: no acute distress and alert Orientation/consciousness: patient oriented x3 HENMT: Head: normocephalic and atraumatic Ears: hearing grossly normal bilaterally General nose exam: Normal nares present Mouth: Yes Normal oral and palatal mucosa present Eyes: Periorbital: periorbital findings normal Sclera: sclerae normal EOM: EOMs intact bilaterally Neck: Neck: normal visual inspection, no lymphadenopathy and trachea midline Chest: Chest palpation & inspection: normal inspection of the chest Resp: Effort & Inspection: normal respiratory effort Auscultation: clear to auscultation bilaterally Cardio: Jugular venous distension: no JVD Rate: regular rate Rhythm: regular rhythm Heart sounds: S1 normal heart sound present and S2 normal heart sound present Peripheral pulses: Peripheral pulses 2+ throughout GI: Inspection: normal to inspection GI Palp: Yes Soft to palpation, No Tenderness to palpation p
[2022-01-13 10:06] VITALS: BP 112/53; PULSE 63; RESP 17; O2SAT 93
[2022-01-13 10:16] VITALS: BP 130/66; PULSE 65; RESP 16; O2SAT 100
[2022-01-13 10:24] VITALS: BP 133/67; PULSE 58; RESP 16; O2SAT 100
== END 2022-01-13 10:37 | disposition home or self-care (01) ==
PROVIDERS: PCP Internal Medicine; Visit Provider Surgery
PROC: 0DJD8ZZ Inspection of Lower Intestinal Tract, Via Natural or Artificial Opening Endoscopic (ICD-10-PCS; CPT 45378; principal; 2022-01-13 09:30)
DX: Z12.11 Encounter for screening for malignant neoplasm of colon (principal); D12.0 Benign neoplasm of cecum; D12.2 Benign neoplasm of ascending colon; D12.5 Benign neoplasm of sigmoid colon; K64.8 Other hemorrhoids; E78.5 Hyperlipidemia, unspecified; I10 Essential (primary) hypertension; E03.9 Hypothyroidism, unspecified; Z87.891 Personal history of nicotine dependence
CPT/HCPCS: 45385; 88305; J2704; J7120

== ENCOUNTER 2022-02-02 07:14 | Outpatient (CLI) | payer MEDICARE, SELFPAY ==
--- NOTE | ~2022-02-02 | US_ITS ---
EXAMINATION: US carotid duplex BI DATE: 02/02/2022 07:48 INDICATION: Carotid bruit TECHNIQUE: Grayscale, color Doppler, and pulsed Doppler images of the cervical carotid arteries were obtained. The degree of vessel stenosis is placed in one of the following categories: normal, <50%, 5 0-69%, >=70% but less than near-occlusion, near-occlusion, or total occlusion. Note that percent sten osis relative to normal distal artery lumen diameter is indirectly measured from velocity measurement s as described by Jermaine, et al. Radiology 2003; 229:340-346. COMPARISON: None. FINDINGS: RIGHT: The right common carotid artery (CCA) peak systolic velocity (PSV) is 70 cm/s. The right internal car otid artery (ICA) PSV is 95 cm/s. The right ICA end-diastolic velocity (EDV) is 32 cm/s. The right IC A/CCA PSV ratio is 1.4. Grayscale and color Doppler images yield an estimate of <50% diameter reducti on from plaque in the ICA. The external carotid artery (ECA) PSV is 142 cm/s. There is antegrade flow in the right vertebral artery. LEFT: The left CCA PSV is 108 cm/s. The left ICA PSV is 99 cm/s. The left ICA EDV is 33 cm/s. The left ICA/ CCA PSV ratio is 0.9. Grayscale and color Doppler images yield an estimate of <50% diameter reduction from plaque in the ICA. The ECA PSV is 123 cm/s. There is antegrade flow in the left vertebral arter y. IMPRESSION: 1. <50% stenosis in the right internal carotid artery. 2. <50% stenosis in the left internal carotid artery. Reviewed, dictated and finalized at location A.
--- NOTE | ~2022-02-02 | US_ITS ---
EXAMINATION: US retroperitoneal comp DATE: 02/02/2022 07:48 INDICATION: Chronic kidney disease TECHNIQUE: Multiple ultrasound grayscale images of the kidneys were obtained. COMPARISON: 04/02/18 FINDINGS: The right kidney measures 10.6 x 4.7 x 5.0 cm. The left kidney measures 8.2 x 4.1 x 4.0 cm. With asym metric mild cortical atrophy. The kidneys demonstrate normal echogenicity. 1.8 cm hypoechoic exophyti c lesion at the lower pole of the left kidney which is without evident internal vascular flow on colo r Doppler but also without posterior acoustic enhancement which is equivocal for solid neoplasm versu s complex cyst. There is no hydronephrosis in either kidney. No stones identified. There is diffuse mild smooth bladder wall thickening. IMPRESSION: 1. Asymmetric mild left renal atrophy with indeterminate 1.8 cm exophytic to hypoechoic lesion at th e lower pole which could represent either solid neoplasm such as renal cell carcinoma or proteinaceou s/hemorrhagic cyst. Recommend further evaluation with pre and postcontrast MRI or CT. 2. Diffuse mild smooth bladder wall thickening which could be due to cystitis either acute or chronic or chronic outlet obstruction. Reviewed, dictated and finalized at location A. IMPRESSION: 1. Asymmetric mild left renal atrophy with indeterminate 1.8 cm exophytic to h ypoechoic lesion at the lower pole which could represent either solid neoplasm such as renal cell carcinoma or proteinaceous/hemorrhagic cyst. Recommend furth er evaluation with pre and postcontrast MRI or CT. 2. Diffuse mild smooth bladder wall thickening which could be due to cystitis e ither acute or chronic or chronic outlet obstruction.
== END 2022-02-02 07:15 | disposition home or self-care (01) ==
LOC: CHSIMG 07:15
PROVIDERS: PCP Internal Medicine; Visit Provider Internal Medicine
DX: R09.89 Other specified symptoms and signs involving the circulatory and respiratory systems (principal); N18.32 Chronic kidney disease, stage 3b
CPT/HCPCS: 76770; 93880

== ENCOUNTER 2022-03-09 13:23 | Outpatient (CLI) | payer MEDICARE, SELFPAY ==
--- NOTE | ~2022-03-09 | MR_ITS ---
EXAMINATION: MR abdomen wo con DATE: 03/09/2022 15:04 INDICATION: Kidney mass. TECHNIQUE: Magnetic resonance imaging (MRI) of the abdomen was performed without intravenous contrast due to decreased kidney function. COMPARISON: Ultrasound kidneys 02/02/2022 FINDINGS: There are cysts in the liver measuring up to 2.9 cm. There are gallstones in the gallbladder, which i s normal in size. The spleen, pancreas, and adrenal glands are normal. There is a 4 mm cyst in right kidney. There is an 18 mm mass of left kidney with heterogeneous signal intensity. There is mild left hydronephrosis. There is a 2.5 cm mass at the hilum of left kidney with heterogeneous signal intensi ty. There is 11 mm filling defect in left renal pelvis. There is low signal in the lower pole calyces in left kidney. There are no dilated loops of bowel. There is a 3.0 cm fusiform aneurysm of abdomina l aorta. IMPRESSION: 1. 18 mm left kidney mass, which may be benign or malignant. 2. Mild left hydronephrosis and filling defects in the collecting system in the left kidney and proxi mal left ureter, which may be stones and/or hematoma and/or malignancy. Abdomen and pelvis CT without and with contrast (CT urogram) is recommended. Reviewed, dictated and finalized at location B. IMPRESSION: 1. 18 mm left kidney mass, which may be benign or malignant. 2. Mild left hydronephrosis and filling defects in the collecting system in the left kidney and proximal left ureter, which may be stones and/or hematoma and/ or malignancy. Abdomen and pelvis CT without and with contrast (CT urogram) is recommended.
[2022-03-09 14:03] LABS: Estimated Glomerular Filt Rate 33
== END 2022-03-09 13:24 | disposition home or self-care (01) ==
PROVIDERS: PCP Internal Medicine; Visit Provider Urology
DX: N28.89 Other specified disorders of kidney and ureter (principal)
CPT/HCPCS: 74181

== ENCOUNTER 2022-03-25 07:49 | Outpatient (CLI) | payer MEDICARE, SELFPAY ==
--- NOTE | 2022-03-25 07:59 | ECG_ITS ---
Measurements Intervals [place] Rate: 91 P: 26 WA: 148 QRS: -8 QRSD: 97 T: 61 QT: 329 QTc: 406 Interpretive Statements SINUS RHYTHM LEFT VENTRICULAR HYPERTROPHY WITH ST-T CHANGE BASELINE ARTIFACT- I, II, AVR, AVL, AVF BORDERLINE ECG Electronically Signed On 03-25-2022 8:25:14 CDT by Jah Tomas D.O.
== END 2022-03-25 07:50 | disposition home or self-care (01) ==
PROVIDERS: PCP Internal Medicine; Visit Provider Urology
DX: N28.89 Other specified disorders of kidney and ureter (principal); I10 Essential (primary) hypertension; Z01.818 Encounter for other preprocedural examination; R94.31 Abnormal electrocardiogram [ECG] [EKG]
CPT/HCPCS: 87086; 93005

== ENCOUNTER 2022-03-29 01:04 | Day surgery (SDC) | payer MEDICARE, SELFPAY ==
--- NOTE | 2022-03-23 08:44 | PC.NURSE ---
Report to the Outpatient Waiting Room, entrance under the green pavilion located off [facility], at time _0630 on date __03/29/22 . OR Time: . - You and your visitor will be asked a series of questions to screen for COVID 19 for your protection. - Only one visitor is allowed at this time. - The patient visitor is requested to leave or wait in car when not with patient. - A mask is required within the hospital. Patients may have clear liquids (water, carbonated beverages, clear teas, apple juice) until 3 hours prior to surgery with a maximum of 20 ounces. - No food from midnight until time of surgery - Infants may have breast milk until 4 hours before surgery, infant formula 6 hours prior to surgery. - Children will be allowed to drink immediately following surgery. If applicable, please bring a bottle or sippy cup to assist with drinking. Juice, water, soda, and popsicles are readily available. For infants on formula, please bring formula the day of surgery. Pacifiers are allowed. Take the following medications with a SIP of water the morning of surgery: _LEVOTHYROXINE Medications to discontinue per physician ___ALL VITAMINS AND SUPPLEMENTS 3 DAYS PRE OP Date to take last dose____03/25/22 Please no make-up, nail south korean, hairspray, perfume, deodorant, or body powder the day of surgery. No jewelry (including any body piercings) or valuables the day of surgery, leave them at home. Please take a shower or bath the night before, or the morning of, surgery with an antibacterial soap. Wear comfortable, loose fitting clothing. Children are encouraged to wear pajamas. - Jewelry must be removed prior to entering the operating room. Rings and piercings that are not removed may be cut off. - The hospital will not accept responsibility for valuables. - Please leave all valuables, including medications, at home the day of surgery. If you are going home after surgery, a licensed mobile lounge driver or operator must drive you home. - NO public transportation without another adult. - We recommend that an adult stay with you for 24 hours following discharge. - We also recommend that you do not drive, make important decision, drink alcoholic beverages, or take any drugs that were not prescribed by your health care provider for at least 24 hours after your discharge time. Follow any additional instructions given to you from your surgeon. If you or anyone in your household have experienced Covid symptoms in the past week, please notify your surgeon or the nurse liaison at the phone number below for possible testing. Telephone instructions given to _PATIENT and asked if any additional questions and then verbalized understanding. Patient advised to call surgeon office or pre surgery nurse liaison [phone] if any additional questions.
[2022-03-23 08:59] VITALS: BMI 25.7
[2022-03-29] VITALS (8 sets, daily range): BP systolic 119–186; BP diastolic 65–87; PULSE 53–69; RESP 12–16; TEMP 36.1–36.6; O2SAT 100
--- NOTE | ~2022-03-29 | XR_ITS ---
EXAMINATION: XR retrograde pyelo w/stent LT DATE: 03/29/2022 10:28 INDICATION: Left internal ureteral stent placement TECHNIQUE: Fluoroscopic images from a left internal ureteral stent placement are submitted for review . 80 seconds of fluoroscopy time. 8 fluoroscopic images. FINDINGS: There is a left double-J internal ureteral stent projecting in expected position, with proximal [place] loop at the level of the renal pelvis and distal loop in the pelvis within the bladder lumen. IMPRESSION: 1. Left internal ureteral stent placement. Please refer to real-time procedural findings for detail s. Reviewed, dictated and finalized at location A. IMPRESSION: 1. Left internal ureteral stent placement. Please refer to real-time procedur al findings for details.
[2022-03-29] MEDS: LACTATED RINGERS 1,000 ML 30 ML IV CONT (07:00)
--- NOTE | 2022-03-29 07:23 | WPDANESEPPF ---
Anes - Initial Pre Proc Eval Procedure: Operation Date: 03/29/22 08:30 Proposed Procedures p Cystoscopy, Left Ureteroscopy, Left Retrograde Pyelogram - Matt Ferreira MD Date/Time: 03/29/22 07:23 Surgeon: Matt Ferreira MD Pre Op Diagnosis: Renal Mass Patient Data Age: 76 Gender: M Height: 1.83 m Weight: 85.9 kg Allergies Allergy/AdvReac Type Severity Reaction Status Date / Time coconut Allergy Swelling Verified 03/29/22 06:43 of Lip/Tongue/Throat Home Medications Medication Instructions Recorded Confirmed Type folic acid 1 mg tablet 1 mg PO DAILY 12/10/19 03/29/22 History lisinopril 5 mg tablet 5 mg PO DAILY 12/10/19 03/29/22 History methotrexate sodium 2.5 mg tablet 12.5 mg PO WEEKLY 12/10/19 03/23/22 History pravastatin 40 mg tablet 40 mg PO HS 12/10/19 03/29/22 History coQ10 (ubiquinol) 200 mg capsule 200 mg PO DAILY 01/03/22 03/29/22 History levothyroxine 200 mcg tablet 200 mcg PO DAILY 01/03/22 03/29/22 History omeprazole 20 mg capsule,delayed 20 mg PO DAILY 01/03/22 03/29/22 History release tumeric 100 mg-miladys 150 mg-olive 1 cap PO DAILY 01/03/22 03/29/22 History 50 mg-oreg 150 mg-caprylate capsule acetaminophen 650 mg 650 mg PO Q12H PRN Pain 03/23/22 03/29/22 History tablet,extended release (Tylenol Arthritis Pain) wemmelwq-gkibzrwm-siihc acid 400 1 tablet PO DAILY 03/23/22 03/29/22 History mcg-vit K 20 mcg-lycop 300 mcg tablet (Men's One Daily) Patient hx anesthesia problems: none Family hx anesthesia problems: none Results Review: All pre-operative results and documents have been reviewed as part of the pre-operative evaluation. [facility] Past Medical History Medical History (Updated 03/29/22 @ 07:36 by Sixto Up DO) AAA (abdominal aortic aneurysm) HLD (hyperlipidemia) HTN (hypertension) Hypothyroidism Renal mass Rheumatoid arteritis Surgical History Surgical History (Updated 01/09/20 @ 14:38 by Garrett Villanueva MD) History of appendectomy History of prostatectomy Social History Social History Smoking status: Former smoker Tobacco type: pipe Second hand tobacco smoke exposure: No Smoking end date: 11/06/07 Additional smoking assessment comments: SMOKED A PIPE DAILY. QUIT 2007 Alcohol intake: current Alcohol use details: Occasionally Substance use: former Substance use type: does not use Living arrangements: with family Gender identity (if verbalized by the patient): Male Spiritual care concerns: No Agree to blood products: Yes Anes - Eval Final PreProcedure Day of Procedure 03/29/22 07:23 Patient weight: overweight Heart: regular rate and rhythm Lungs: clear to auscultation and normal air movement Airway: Mallampati scale class III Neurological: alert and oriented Last oral intake: >/= 8 hours ASA classification: III Emergent: no Anesthetic plan: proceed Anesthesia type and monitoring: general LMA and standard monitoring Results Review: All pre-operative results and documents have been reviewed as part of the pre-operative evaluation. Informed Consent: The patient's anesthetic plan and its attendant risks and benefits were discussed with the patient/family/POA. Questions were solicited and answers provided to the satisfaction of the patient/family/POA.
--- NOTE | 2022-03-29 07:32 | WPDHPUPDATE1 ---
History and Physical Update Update Date/Time: 03/29/22 07:32 History and Physical has been reviewed, including an updated exam of the patient. There are NO changes in the patient's condition. Risks, benefits, and alternatives have been discussed and questions answered. Patient agrees to proceed with procedure. Proceed with cysto, left retrograde, left stent placement. Possible left ureteroscopy.
[2022-03-29] MEDS: ceFAZolin 2 GM/D5W 50 ML 2 GM/50 ML BAG IVPB (08:42)
--- NOTE | 2022-03-29 10:16 | SUR.OPER ---
left ureteral stent 4.8fr lot [id number], exp 2025-01-03.
[2022-03-29] MEDS: LIDOCAINE HCL 2% GEL UROJET 10 ML PKG MUCOUS MEM (10:25)
--- NOTE | 2022-03-29 10:27 | W.PM.PROC2 ---
Procedure Note - Detailed Date of Procedure 03/29/22 Pre-op Diagnosis Renal Mass, Post-op Diagnosis Other (Large left proximal ureteral/renal pelvic stone-at least 2.5 cm, bladder neck contracture) Procedure Performed Cystoscopy with dilation of bladder neck contracture with Amplantz dilators, left retrograde pyelogram left ureteroscopy with holmium laser, stone extraction, left ureteral stent placement 4.8 Argentine contour stent Surgeon Matt Ferreira MD Indications Patient was found to have a possible left renal mass measuring 2.5 cm on MRI with an additional indeterminate 11 mm lesion. Patient presents for cysto with left ureteroscopy and pyelogram today Findings Large left proximal ureteral and renal pelvic stone greater than 2.5 cm. No renal pelvic tumors noted at this time. Bladder neck contracture Description of Procedure Patient is taken to the operative suite correctly identified. Once anesthesia was obtained was placed in the dorsal lithotomy position and prepped and draped usual sterile fashion. Nineteen Argentine scope inserted into the bladder. Prostate is non-existent is he has had a prior prostatectomy. The bladder neck has a contracture and would not allow passage of the scope. At this point a guidewire was placed. Using amplantz dilators I dilated up to 20 Argentine. Nineteen Argentine scope was then reinserted. There were no tumors noted. Left orifice was cannulated with a guidewire and a Mcclellan was inserted over it. Pyelogram was then performed. There was some filling defects in the proximal ureter and renal pelvis. At this point we dilated the ureter with an 8/10 dilator. Mini flexible ureteral scope was inserted into the ureter. It was apparent in the proximal ureter he had a large stone. Using a 272 micron fiber we began to fragment the stone. It was noted that it was too large to do without an access sheath. We thus placed a ureteral access sheath in. We continued to fragment the stone in the vein used dusting mode. There was significant amount of dusted stone and some fragments which we then retrieved and sent for analysis. After quite a while of fragmenting we decided to terminate the procedure as it appeared that a lot of the stone had been either dusted or fragmented. At this point time we went ahead and placed a 4.8 Argentine contour stent with the proximal end coiled in the renal pelvis and distal in the bladder. 2% viscous lidocaine was inserted urethra and a 16 Argentine Rosas was placed. 10 cc were placed in balloon. Patient is taken recovery stable condition. Plan will isto see how adequately the patient passes these fragments. Will also see what stone analysis shows. If it has uric acid component may try alkalinize his urine also. Will plan on a renal CT KUB in approximately 7-10 days. Patient may require repeat endoscopic treatment versus lithotripsy. Will plan on removing Rosas catheter in a day or 2 Drains Yes Packing No Pathology Yes Complications No immediate complications Condition Stable Disposition PACU
[2022-03-29] MEDS: traMADol HCL (*CRX) 50 MG TABLET PO (11:41)
[2022-03-29] MEDS: fentaNYL CITRATE INJ (*CRX) 100 MCG/2 ML VIAL 25 MCG IV PUSH (11:42)
--- NOTE | 2022-03-30 07:35 | WPDANESPN ---
Anes - Prog Note Post-Op Date/Time: 03/30/22 07:35 Cardiovascular status: normal Respiratory status: normal Airway patency: baseline Mental status: baseline Post-Op hydration status: normal Vital Signs: Last Vital Signs Temp 96.9 F L 03/29/22 10:34 Pulse 65 03/29/22 12:25 Resp 16 03/29/22 12:25 BP 169/83 H 03/29/22 12:25 Pulse Ox 100 03/29/22 11:15 O2 Del Method Room Air 03/29/22 12:25 O2 Flow Rate 6 03/29/22 10:45 Pain Score (VAS): 11/15 I/O: Intake & Output 03/29/22 03/29/22 03/30/22 15:59 23:59 07:59 Intake Total 250 Balance 250 Patient Feedback: Patient satisfied with anesthetic care.
--- NOTE | 2022-03-31 16:10 | SUR.PHASEII ---
Late entry: Fentanyl 25mcg given 03/29/2022 at 1230
== END 2022-03-29 13:09 | disposition home or self-care (01) ==
PROVIDERS: PCP Internal Medicine; Visit Provider Urology
PROC: (CPT 52352; principal; 2022-03-29 08:30)
PROC: (CPT 52356; 2022-03-29 08:30)
DX: N20.1 Calculus of ureter (principal); N32.0 Bladder-neck obstruction; Z90.79 Acquired absence of other genital organ(s); I10 Essential (primary) hypertension; E78.5 Hyperlipidemia, unspecified; E03.9 Hypothyroidism, unspecified; M06.9 Rheumatoid arthritis, unspecified; I71.4 Abdominal aortic aneurysm, without rupture; Z87.891 Personal history of nicotine dependence
CPT/HCPCS: 52356; 74420; 82365; 88300; A9270; C1726; C1758; C1769; C1894; C2617; J0690; J1100; J2370; J2405; J2704; J3010; J7120; Q9966

== ENCOUNTER 2022-04-05 13:35 | Outpatient (CLI) | payer MEDICARE, SELFPAY ==
--- NOTE | ~2022-04-05 | CT_ITS ---
EXAMINATION: CT abdomen pelvis wo con DATE: 04/05/2022 14:10 INDICATION: Left renal stone TECHNIQUE: Computed tomography (CT) of the abdomen and pelvis was performed without intravenous contr ast. The dose-length product (DLP) was 212.86 mGy-cm. Automated exposure control and iterative recons truction technique were employed. COMPARISON: None FINDINGS: Minimal dependent atelectasis is present in the lung bases. The heart size is normal. There is a 1.9 cm cyst of the left hepatic lobe. Punctate calcifications in an otherwise normal spleen lik sagrario represent healed granulomatous disease. The pancreas and adrenal glands are normal. Stones are pr esent in the nondistended gallbladder. The right kidney is unremarkable. There is a left internal ure teral stent in expected position. The left inferior portion of the left renal pelvis, multiple lower pole calyces, and proximal left ureter contain innumerable stone fragments. No stones are identified in the urinary bladder. There is a 3.2 cm fusiform infrarenal abdominal aortic aneurysm. There are merrill rgical changes of prostatectomy with pelvic lymph node dissection. No pathologically enlarged lymph n odes are identified. There is mild lumbar spondylosis. IMPRESSION: 1. Left internal ureteral stent in expected position with innumerable stones in the lower pole of the left kidney and adjacent to the proximal aspect of the stent. Reviewed, dictated and finalized at location F. IMPRESSION: 1. Left internal ureteral stent in expected position with innumerable stones in the lower pole of the left kidney and adjacent to the proximal aspect of the s tent.
--- NOTE | ~2022-04-05 | XR_ITS ---
EXAMINATION: XR abdomen/kub 1V INDICATION: Left ureteral stone TECHNIQUE: Supine views of the abdomen were obtained on 2 radiographs. COMPARISON: CT from today FINDINGS: A left internal ureteral stent is in expected position. Stone fragments seen in the left ki dney lower pole and adjacent to the proximal aspect of the internal ureteral stent on today's CT exam ination are not well demonstrated. There are changes of pelvic lymph node dissection. The bowel gas p attern is normal. Mild osteoarthritis of the hips is noted. IMPRESSION: 1. Left internal ureteral stent in expected position. Known stone fragments adjacent to the proximal stent and in the lower pole of the left kidney are better appreciated on today's CT examination. Reviewed, dictated and finalized at location F. IMPRESSION: 1. Left internal ureteral stent in expected position. Known stone fragments adj acent to the proximal stent and in the lower pole of the left kidney are better appreciated on today's CT examination.
== END 2022-04-05 13:36 | disposition home or self-care (01) ==
PROVIDERS: PCP Internal Medicine; Visit Provider Urology
DX: N20.1 Calculus of ureter (principal)
CPT/HCPCS: 74018; 74176

== ENCOUNTER 2022-05-03 07:35 | Outpatient (CLI) | payer MEDICARE, SELFPAY ==
--- NOTE | ~2022-05-03 | CT_ITS ---
EXAMINATION: CT lung screening DATE: 05/03/2022 08:04 INDICATION: Personal history of nicotine dependence, prior smoker with 40 to pack year history TECHNIQUE: Computed tomography (CT) of the chest was performed without intravenous contrast. The dose -length product (DLP) was 116.66 mGy-cm. Automated exposure control and iterative reconstruction tech [employer] were employed. COMPARISON: 09/08/2021 FINDINGS: No suspicious pulmonary nodules are identified. Areas of rounded atelectasis are again note d in the lower lobes. There is no pneumothorax. No pathologically enlarged thoracic lymph nodes are i dentified. The heart size is normal. Calcified pulmonary nodules and calcified right hilar and medias tinal lymph nodes are consistent with old granulomatous disease. Stones are present in the nondistend ed gallbladder. There is moderate thoracic spondylosis. IMPRESSION: 1. Lung-RADS category 1: Negative. Continue annual screening with noncontrast low-dose chest CT in 12 months. Reviewed, dictated and finalized at location A. IMPRESSION: 1. Lung-RADS category 1: Negative. Continue annual screening with noncontrast l ow-dose chest CT in 12 months.
== END 2022-05-03 07:36 | disposition home or self-care (01) ==
PROVIDERS: PCP Internal Medicine
DX: Z87.891 Personal history of nicotine dependence (principal)
CPT/HCPCS: 71271

== ENCOUNTER 2022-05-05 15:30 | Outpatient (CLI) | payer MEDICARE, SELFPAY ==
[2022-05-05 15:51] LABS: Anion Gap 8 mmol/L (8-16); Blood Urea Nitrogen 36 mg/dL (7-18); Calcium 8.6 mg/dL (8.5-10.1); Carbon Dioxide 21 mmol/L (21-32); Chloride 111 mmol/L (98-108); Estimated Glomerular Filt Rate 26; Glucose 123 mg/dL (70-99); Osmolality Calculated 299 mOsm/kg (285-295); Sodium 140 mmol/L (136-145)
== END 2022-05-05 15:31 | disposition home or self-care (01) ==
LOC: CHSLAB 15:33
PROVIDERS: PCP Internal Medicine; Visit Provider Internal Medicine
DX: E87.5 Hyperkalemia (principal)
CPT/HCPCS: 36415; 80048

== ENCOUNTER 2022-05-25 09:02 | Outpatient (CLI) | payer MEDICARE, SELFPAY ==
--- NOTE | ~2022-05-25 | CT_ITS ---
EXAMINATION: CT abdomen pelvis wo con DATE: 05/25/2022 09:27 INDICATION: LEFT URETERAL STONE TECHNIQUE: Computed tomography (CT) of the abdomen and pelvis was performed without intravenous contr ast. Automated exposure control and iterative reconstruction technique were employed. The dose-length product was 202.56 mGy-cm. COMPARISON: 04/05/2022. FINDINGS: Lower thorax: Aortic valve and coronary artery calcification. Bibasilar scar/atelectasis. Liver: Left lobe cyst. Biliary/Gallbladder: Cholelithiasis. No bile duct dilation. Pancreas: No mass or duct dilation. Spleen: Normal. Adrenals:No mass. Kidneys: Portions of a staghorn calculus remain in the left mid and lower pole. Mild left renal atrop hy. Left ureteral stent, in good position GI tract: No small or large bowel dilation. Appendix not visualized. Mesentery/Peritoneum: No ascites, mass, or free air. Retroperitoneum: No mass. Atherosclerotic abdominal aortic and/or arterial calcifications. 3.3 cm inf rarenal abdominal aortic aneurysm. Pelvis: Prostatectomy with pelvic lymph node dissection, otherwise the pelvic organs are within erika l limits. Soft Tissues: Bilateral inguinal lymphadenopathy. Bones: No acute osseous finding. IMPRESSION: Interval partial calculus removal, with residual stone present in calyces of the left mid and lower p ole. Left ureteral stent, in good position. Cholelithiasis. Bilateral inguinal lymphadenopathy. Reviewed, dictated and finalized at location K. IMPRESSION: Interval partial calculus removal, with residual stone present in calyces of th e left mid and lower pole. Left ureteral stent, in good position. Cholelithiasi s. Bilateral inguinal lymphadenopathy.
--- NOTE | ~2022-05-25 | XR_ITS ---
EXAM: XR abdomen/kub 1V DATE: 05/25/2022 09:22 HISTORY: LEFT URETERAL STONE . COMPARISON: 04/05/2022. FINDINGS: Left ureteral stent, in good position. Multiple pelvic surgical clips. Chronic right angle blunting. Normal bowel gas pattern. No organomegaly. Cholelithiasis. Left lower pole calcifications. Regional bones and soft tissues normal for age. IMPRESSION: Left ureteral stent in good position. Left nephrolithiasis. Cholelithiasis. Please also r efer to the subsequent CT abdomen and pelvis for additional detail. Reviewed, dictated and finalized at location K. IMPRESSION: Left ureteral stent in good position. Left nephrolithiasis. Choleli thiasis. Please also refer to the subsequent CT abdomen and pelvis for addition al detail.
== END 2022-05-25 09:03 | disposition home or self-care (01) ==
PROVIDERS: PCP Internal Medicine; Visit Provider Urology
DX: N20.1 Calculus of ureter (principal)
CPT/HCPCS: 74018; 74176

== ENCOUNTER 2022-06-13 10:46 | Emergency (ER) | payer MEDICARE, SELFPAY ==
[2022-06-13 10:50] VITALS: BP 149/78; PULSE 68; RESP 18; TEMP 36.1; O2SAT 98
--- NOTE | 2022-06-13 11:35 | ECG_ITS ---
Measurements Intervals [place] Rate: 60 P: 50 [place]: 160 QRS: -6 QRSD: 101 T: 28 QT: 382 QTc: 384 Interpretive Statements SINUS RHYTHM MODERATE VOLTAGE CRITERIA FOR LVH, CONSIDER NORMAL VARIANT [MEETS CRITERIA IN ONE OF: R(aVL), S(V1), R(V5), R(V5/V6)+S(V1)] COMPARED TO ECG 03/25/2022 08:08:13 NO SIGNIFICANT CHANGES Electronically Signed On 06-13-2022 14:49:13 CDT by German Levy M.D.
[2022-06-13 11:37] LABS: Basophils Absolute Auto 0.06 K/mm3 (0.00-0.10); Basophils Percent Auto 0.9 % (0.0-1.0); Eosinophils Absolute Auto 0.43 K/mm3 (0.02-0.50); Eosinophils Percent Auto 6.2 % (1.0-6.0); Hemoglobin 10.6 g/dL (12.4-15.3); Immature Granulocyte Absolute 0.01 K/mm3 (0.00-0.00); Immature Granulocyte Percent A 0.1 % (0.0-0.0); Lymphocytes Absolute Auto 1.31 K/mm3 (1.10-4.50); Lymphocytes Percent Auto 18.9 % (18.0-42.0); Mean Corpuscular HGB Conc 32.1 g/dL (32.0-36.0); Mean Corpuscular Hemoglobin 29.4 pg (27.0-31.0); Mean Corpuscular Volume 91.7 fL (78.0-102.0); Mean Platelet Volume 9.5 fl (8.7-11.0); Monocytes Absolute Auto 0.35 K/mm3 (0.10-0.90); Monocytes Percent Auto 5.1 % (2.0-11.0); Neutrophils Absolute Auto 4.8 K/mm3 (1.7-7.2); Neutrophils Percent Auto 68.8 % (50.0-70.0); Platelet Count Result 304 K/mm3 (150-420); Red Cell Distribution Width 12.6 % (11.6-14.4); White Blood Count 6.9 K/mm3 (4.8-10.8)
[2022-06-13 11:43] LABS: Add Urine Microscopic? YES; Appearance Urine Clear (Clear); Bilirubin Urine Negative (Negative); Blood Urine 3+ (Negative); Color Urine Light Yellow (Yellow); Glucose Urine UA Negative (Negative); Ketones Urine Negative (Negative); Leukocyte Esterase Ur Trace (Negative); Nitrate Urine Negative (Negative); Protein Urine Trace (Negative); Urobilinogen Urine 0.2 mg/dL (0.2-1.0)
[2022-06-13 11:48] LABS: Bacteria Urine Trace /hpf; Squamous Epithelial Cell Urine Rare /hpf (Few); WBC Urine 0-3 /hpf (0-3)
[2022-06-13 12:02] LABS: Alanine Aminotransferase 15 U/L (16-63); Albumin Level 2.6 g/dL (3.4-5.0); Alkaline Phosphatase 59 U/L (46-116); Anion Gap 8 mmol/L (8-16); Aspartate Amino Transferase 17 U/L (15-37); Bilirubin,Total 0.2 mg/dL (0.00-1.00); Blood Urea Nitrogen 47 mg/dL (7-18); Calcium 8.5 mg/dL (8.5-10.1); Carbon Dioxide 24 mmol/L (21-32); Chloride 106 mmol/L (98-108); Estimated CRCL calculation 29 ml/min; Estimated Glomerular Filt Rate 29; Glucose 104 mg/dL (70-99); Osmolality Calculated 298 mOsm/kg (285-295); Potassium 5.2 mmol/L (3.5-5.1); Sodium 138 mmol/L (136-145)
--- NOTE | 2022-06-13 12:47 | ED.GENADULT ---
HPI - General Adult General Chief complaint: Unspecified Stated complaint: Dr Cabezas states Potassium is high Time Seen by Provider: 06/13/22 10:50 Source: patient and RN notes reviewed Mode of arrival: ambulatory Limitations: no limitations History of Present Illness MD complaint: no acute sxs. Onset (ago): day(s) (1) Radiation: non-radiation Severity: mild Quality: other (no acute pain) Relieving factors: none Exacerbating factors: none Associated symptoms: denies other symptoms Related Data Home Medications Medication Instructions Recorded Confirmed folic acid 1 mg tablet 1 mg PO DAILY 12/10/19 06/13/22 lisinopril 5 mg tablet 5 mg PO DAILY 12/10/19 06/13/22 pravastatin 40 mg tablet 40 mg PO HS 12/10/19 06/13/22 coQ10 (ubiquinol) 200 mg capsule 200 mg PO DAILY 01/03/22 06/13/22 levothyroxine 200 mcg tablet 200 mcg PO DAILY 01/03/22 06/13/22 omeprazole 20 mg capsule,delayed 20 mg PO DAILY 01/03/22 06/13/22 release tumeric 100 mg-miladys 150 mg-olive 1 cap PO DAILY 01/03/22 06/13/22 50 mg-oreg 150 mg-caprylate capsule acetaminophen 650 mg 650 mg PO Q12H PRN Pain 03/23/22 06/13/22 tablet,extended release (Tylenol Arthritis Pain) jbglvnko-lhfkkkpy-rpune acid 400 1 tablet PO DAILY 03/23/22 06/13/22 mcg-vit K 20 mcg-lycop 300 mcg tablet (Men's One Daily) ferrous sulfate 325 mg (65 mg 65 mg PO DAILY 06/13/22 06/13/22 iron) tablet hydrochlorothiazide 25 mg tablet 25 mg PO DAILY 06/13/22 06/13/22 Allergies Allergy/AdvReac Type Severity Reaction Status Date / Time coconut Allergy Swelling Verified 06/13/22 11:30 of Lip/Tongue/Throat Review of Systems Review of Systems: All systems reviewed & are unremarkable except as noted in HPI and below Constitutional: Constitutional: Reports no additional constitutional complaints Eyes: Eyes: Reports no additional eye complaints ENT: Reports system reviewed and no additional complaints, except as documented Cardiovascular: Cardiovascular: Reports no additional cardiovascular complaints Respiratory: Respiratory: Reports no additional respiratory complaints Gastrointestinal: Gastrointestinal: Reports no additional gastrointestinal complaints Musculoskeletal: Musculoskeletal: Reports no additional musculoskeletal complaints Integumentary/Breasts: Skin/Breast: Reports system reviewed and no additional complaints, except as docu Neurologic: Reports system reviewed and no additional complaints, except as documented Psychiatric: Psychiatric: Reports no additional psychiatric complaints Endocrine: Endocrine: Reports no additional endocrine complaints Hematologic/Lymphatic: Hematologic/Lymphatic: Reports no additional hematologic/lymphatic complaints Allergic/Immunologic: Allergic/Immunologic: Reports no additional allergic/immunologic complaints PMFSH Past Medical History Medical History AAA (abdominal aortic aneurysm) HLD (hyperlipidemia) HTN (hypertension) Hypothyroidism Renal failure, chronic Renal mass Rheumatoid arteritis Surgical History Surgical History History of appendectomy History of prostatectomy Social History Social History Smoking status: Former smoker Tobacco type: pipe Second hand tobacco smoke exposure: No Smoking end date: 11/06/07 Additional smoking assessment comments: SMOKED A PIPE DAILY. QUIT 2008 Alcohol intake: current Alcohol use details: Occasionally Substance use: former Substance use type: does not use Gender identity (if verbalized by the patient): Male Spiritual care concerns: No Agree to blood products: Yes Exam Const: General: no acute distress Nutritional Appearance: well nourished and thin Orientation/consciousness: patient oriented x3 Limitations: no limitations HENMT: Head: normal to inspection Ea
[2022-06-13 12:50] VITALS: BP 130/65; PULSE 70; RESP 16; TEMP 36.6; O2SAT 100
== END 2022-06-13 13:00 | disposition home or self-care (01) ==
PROVIDERS: Emergency Provider Emergency Medicine; PCP Internal Medicine
DX: I12.9 Hypertensive chronic kidney disease with stage 1 through stage 4 chronic kidney disease, or unspecified chronic kidney disease (principal); N18.9 Chronic kidney disease, unspecified; E78.5 Hyperlipidemia, unspecified; E03.9 Hypothyroidism, unspecified; Z87.891 Personal history of nicotine dependence
CPT/HCPCS: 36415; 80053; 81001; 85025; 93005; 99283

== ENCOUNTER 2022-07-06 10:25 | Outpatient (CLI) | payer MEDICARE, SELFPAY ==
--- NOTE | ~2022-07-06 | CT_ITS ---
EXAMINATION: CT abdomen pelvis wo con DATE: 07/06/2022 10:48 INDICATION: Left ureteral stone. Status post lithotripsy. TECHNIQUE: Computed tomography (CT) of the abdomen and pelvis was performed without intravenous contr ast. Automated exposure control and iterative reconstruction technique were employed. Exam dose: 203 .93 mGy-cm total exam DLP. COMPARISON: 05/25/2022 CT abdomen pelvis FINDINGS: Moderately prominent bilateral lower lung discoid atelectasis and/or scarring, primarily in volving the lower lobes. No pulmonary consolidation. No pleural effusion. Normal heart size. No pericardial effusion. There are multiple faceted calcified gallstones. No pericholecystic fluid or fat stranding or gallbla dder distention. No bile duct or pancreatic duct dilatation. There are numerous pancreatic calcifications consistent with chronic pancreatitis. Normal morphology of the adrenal glands. No right renal mass lesion or right urinary tract calculus or hydroureteronephrosis is evident. Left internal urinary stent is present in expected position. There is asymmetric left renal atrophy. Moderate left hydronephrosis Multiple lower pole left renal nonobstructing calculi. No apparent left ureteral calculus. Mild infrarenal approximately 3.2 cm abdominal aortic aneurysm. There is extensive calcification of t he abdominal aorta and iliac arteries. The urinary bladder is unremarkable other than the presence of the ureteral stent. Status post prostatectomy. IMPRESSION: Left internal urinary stent; nonobstructive left nephrolithiasis Mildly prominent left hydronephrosis Left renal atrophy Cholelithiasis Reviewed, dictated and finalized at Location A. Reviewed, dictated and finalized at location B.
== END 2022-07-06 10:26 | disposition home or self-care (01) ==
LOC: ANHIMG 10:32
PROVIDERS: PCP Internal Medicine; Visit Provider Urology
DX: N20.1 Calculus of ureter (principal); K80.20 Calculus of gallbladder without cholecystitis without obstruction; N20.0 Calculus of kidney
CPT/HCPCS: 74176

== ENCOUNTER 2022-08-10 09:37 | Outpatient (CLI) | payer MEDICARE, SELFPAY ==
--- NOTE | ~2022-08-10 | US_ITS ---
US retroperitoneal comp 08/10/2022 10:20 Procedure: Realtime transabdominal ultrasound of the kidneys and bladder. Indication: Renal stones Comparison: 02/02/2022 Findings: Renal echotexture is normal bilaterally without hydronephrosis, contour deforming mass or r enal calculus. The right kidney measures 11.8 cm and left kidney measures 7.9 cm cm. Left kidney is a trophic. There is a small hypoechoic mass measuring 1.8 x 1.7 x 1.6 cm and the left kidney. Bladder w ithin normal limits. Impression: 1: Hypoechoic left renal mass measuring 1.8 cm. Recommend correlation with contrast-enhanced MRI to e xclude enhancement. 2: Left renal atrophy. Reviewed, dictated and finalized at location B. Impression: 1: Hypoechoic left renal mass measuring 1.8 cm. Recommend correlation with cont rast-enhanced MRI to exclude enhancement. 2: Left renal atrophy.
== END 2022-08-10 09:38 | disposition home or self-care (01) ==
PROVIDERS: PCP Internal Medicine; Visit Provider Urology
DX: N20.0 Calculus of kidney (principal)
CPT/HCPCS: 76770

== ENCOUNTER 2022-09-06 09:00 | Outpatient (RCR) | payer MEDICARE, SELFPAY ==
[2022-09-06 10:15] LABS: Cortisol Baseline 7.38 ug/dL
== END 2022-12-05 23:59 | disposition home or self-care (01) ==
LOC: ANHVASCINF 09:00
PROVIDERS: PCP Internal Medicine; Visit Provider Internal Medicine Nephrology
DX: E87.5 Hyperkalemia (principal); R94.7 Abnormal results of other endocrine function studies
CPT/HCPCS: 36415; 82533; 96372; J0834

== ENCOUNTER 2023-01-06 08:13 | Outpatient (CLI) | payer MEDICARE, SELFPAY ==
[2023-01-06 08:29] VITALS: BMI 26.4
[2023-01-06 08:30] VITALS: BP 158/88; PULSE 78; RESP 14; TEMP 36.4; O2SAT 98
[2023-01-06] MEDS: IRON SUCROSE COMPLEX 300 MG in SODIUM CHLORIDE 0.9% IV 250 ML 125 MG IVPB (08:40)
--- NOTE | 2023-01-06 10:44 | PC.NURSE ---
Patient here for IV Venofer infusion #1 of 3. Education given. All concerns answered. IV Venofer administered. SEE MAR. Tolerated Well. Safe exit of hospital. Will return 01/20/23 at 0830 for #2.
== END 2023-01-06 08:14 | disposition home or self-care (01) ==
LOC: CHSTREATRM 08:15
PROVIDERS: PCP Internal Medicine; Visit Provider Internal Medicine
DX: D50.9 Iron deficiency anemia, unspecified (principal)
CPT/HCPCS: 96365; 96366; J1756; J7050

== ENCOUNTER 2023-01-20 08:10 | Outpatient (CLI) | payer MEDICARE, SELFPAY ==
[2023-01-20 08:22] VITALS: BP 137/75; PULSE 86; RESP 14; TEMP 36.6; O2SAT 98; BMI 26.4
[2023-01-20] MEDS: IRON SUCROSE COMPLEX 300 MG in SODIUM CHLORIDE 0.9% IV 250 ML 125 MG IVPB (08:30)
--- NOTE | 2023-01-20 11:27 | PC.NURSE ---
Patient here for #2 of 3 IV Venofer infusions. Reports had no problems with #1. Education reinforced on med. No concerns voiced. IV Venofer administered SEE MAR. Tolerated well. Safe exit of hospital. Will return on 02/03/23 for #3.
== END 2023-01-20 08:11 | disposition home or self-care (01) ==
LOC: CHSTREATRM 08:11
PROVIDERS: PCP Internal Medicine; Visit Provider Internal Medicine
DX: D50.9 Iron deficiency anemia, unspecified (principal)
CPT/HCPCS: 96365; 96366; J1756; J7050

== ENCOUNTER 2023-02-03 08:03 | Outpatient (CLI) | payer MEDICARE, SELFPAY ==
[2023-02-03] MEDS: IRON SUCROSE COMPLEX 300 MG in SODIUM CHLORIDE 0.9% IV 250 ML 125 MG IVPB (08:40)
--- NOTE | 2023-02-03 10:50 | PC.NURSE ---
Patient tolerated venofer infusion well. Denies any s/s of adverse reactions. IV site discontinued. Dressing applied to site, patient tolerated well. Patient left floor ambulatory.
== END 2023-02-03 08:04 | disposition home or self-care (01) ==
LOC: CHSTREATRM 08:05
PROVIDERS: PCP Internal Medicine; Visit Provider Internal Medicine
DX: D50.9 Iron deficiency anemia, unspecified (principal)
CPT/HCPCS: 96365; 96366; J1756; J7050

== ENCOUNTER 2023-04-10 08:14 | Outpatient (CLI) | payer MEDICARE, SELFPAY ==
--- NOTE | ~2023-04-10 | CT_ITS ---
EXAMINATION:CT diagnostic chest wo con DATE: 04/10/2023 08:38 INDICATION: Enlarged lymph node. TECHNIQUE: Computed tomography (CT) of the chest was performed without intravenous contrast. Automate d exposure control and iterative reconstruction technique were employed. The dose-length product (DLP ) was 270.44 mGy-cm. COMPARISON: Chest CT 05/03/2022, 01/01/20, 02/16/18, 08/06/18 FINDINGS: There is minimal scarring at the lung apices. There is mild atelectasis bilaterally. Calcif ied right lung nodules and calcified right hilar and mediastinal lymph nodes are consistent with old granulomatous disease. There is chronic bilateral pleural thickening with adjacent mild rounded atele ctasis. There is mild bronchiectasis in the inferior lungs. There is mild emphysema. No pleural effus ion. The heart size is normal. There are calcifications of the coronary arteries and aortic valve. No pericardial effusion. There are no pathologically enlarged noncalcified lymph nodes. There is mild b ilateral gynecomastia. There is a 13 mm cyst in the liver. There is a 3.0 cm mass in the right hepati c lobe with interrupted peripheral puddling of contrast on a prior CT, consistent with a hemangioma. Partially visualized are gallstones in the gallbladder. Calcifications in the spleen are consistent w ith old granulomatous disease. There is severe cervical and thoracic spondylosis. At T7, there is a 1 0 x 9 x 32 mm calcified epidural mass without contrast enhancement on prior CTs, consistent with a se questered disc. IMPRESSION: 1. No pathologically enlarged noncalcified lymph nodes. 2. Mild emphysema. Reviewed, dictated and finalized at location A.
== END 2023-04-10 08:15 | disposition home or self-care (01) ==
LOC: CHSIMG 08:16
PROVIDERS: PCP Internal Medicine
DX: R59.9 Enlarged lymph nodes, unspecified (principal); Z79.899 Other long term (current) drug therapy; J43.9 Emphysema, unspecified
CPT/HCPCS: 71250

== ENCOUNTER 2023-12-15 07:53 | Outpatient (CLI) | payer MEDICARE, SELFPAY ==
--- NOTE | ~2023-12-15 | US_ITS ---
Renal-Bladder ultrasound Clinical History: Left renal mass Technique: Real-time sonographic imaging of the kidneys and urinary bladder was performed. Findings: The right kidney measures 12.4 cm in length and the left kidney measures 8.7 cm. There is n o hydronephrosis or renal calculus identified. Renal cortical echogenicity is within normal limits. 2 .1 cm probable left renal cyst present. The urinary bladder is moderately distended at the time of this exam. No intraluminal echoes are iden tified. No abnormal wall thickening is seen. Impression: Left kidney is relatively atrophic as compared to the right, measuring significantly smaller in size. Probable left renal cyst, as above. Reviewed, dictated and finalized at location M. OM PROTECTION OFFICER Impression: Left kidney is relatively atrophic as compared to the right, measuring signific antly smaller in size. Probable left renal cyst, as above.
== END 2023-12-15 07:54 | disposition home or self-care (01) ==
LOC: CHSIMG 07:55
PROVIDERS: PCP Internal Medicine; Visit Provider Internal Medicine
DX: N28.89 Other specified disorders of kidney and ureter (principal)
CPT/HCPCS: 76775

== ENCOUNTER 2024-05-20 07:18 | Outpatient (CLI) | payer MEDICARE, SELFPAY ==
--- NOTE | ~2024-05-20 | XR_ITS ---
XR abdomen/kub 1V Ordering provider: Anthony Cabezas MD History: . N20.0 - Calculus of kidney . Comparison: June 02, 2022 FINDINGS: BOWEL: Fecal material seen in the colon. Nonobstructive bowel gas pattern. Cholelithiasis. ORGANOMEGALY: None. SIGNIFICANT PATHOLOGIC CALCIFICATIONS: None. OTHER: Degenerative spine. No free air is seen under the diaphragm. IMPRESSION: NO ACUTE ABDOMINAL FINDINGS. Cholelithiasis. Reviewed, dictated and finalized at location A.
== END 2024-05-20 07:19 | disposition home or self-care (01) ==
LOC: CHSIMG 07:21
PROVIDERS: PCP Internal Medicine; Visit Provider Internal Medicine Nephrology
DX: N18.32 Chronic kidney disease, stage 3b (principal); N20.0 Calculus of kidney; K80.20 Calculus of gallbladder without cholecystitis without obstruction
CPT/HCPCS: 74018

== ENCOUNTER 2025-01-14 07:38 | Outpatient (CLI) | payer MEDICARE, SELFPAY ==
--- NOTE | ~2025-01-14 | US_ITS ---
EXAMINATION: US aorta DATE: 01/14/2025 08:07 INDICATION: Abdominal aortic aneurysm. TECHNIQUE: Grayscale, color Doppler, and pulsed Doppler images of the aorta and common iliac arteries were obtained. COMPARISON: CT abdomen and pelvis 07/06/2022 FINDINGS: The aorta demonstrates a 3.2 cm fusiform infrarenal aneurysm. The right common iliac artery is normal in caliber. The left common iliac artery is normal in caliber. IMPRESSION: 1. 3.2 cm fusiform infrarenal aortic aneurysm. Reviewed, dictated and finalized at location B.
--- OUTSIDE RECORDS SUMMARY | 2025-01-14 07:44 | XMS_ITS | Clinical Summary ---
Author Organization [facility] Address [address] [place] [phone] Phone Care Team Providers Care Medical Education Coordinator Name Role Phone Lottie Holt MD Primary Care Provider [phone] Allergies Active Allergy Reactions Criticality Noted Date Comments Coconut (Cocos Nucifera) Swelling Medium 12/11/2019 Lips swell Medications Medication Sig Dispensed Refills Start Date End Date Status aspirin (ST GUICHO) 81 MG EC tablet Take 81 mg by mouth daily 05/25/2015 Active coenzyme Q-10 100 MG capsule Take 100 mg by mouth daily 01/20/2020 Active folic acid (FOLVITE) 1 MG tablet Take 1,000 mcg by mouth 1 (one) time each day 03/08/2022 Active levothyroxine (SYNTHROID) 200 MCG tablet Take 200 mcg by mouth 1 (one) time each day 03/01/2022 Active omeprazole (PriLOSEC) [address] capsule Take 20 mg by mouth daily 05/25/2015 Active pravastatin (PRAVACHOL) 40 MG tablet Take 40 mg by mouth 1 (one) time each day 03/29/2022 Active Turmeric 400 MG capsule Take 400 mg by mouth daily 01/20/2020 Active ferrous sulfate 325 (65 Fe) MG tablet TAKE 1 TABLET BY MOUTH ONCE DAILY 05/31/2022 Active fludrocortisone 0.1 MG tablet Take 1 tablet (0.1 mg total) by mouth 1 (one) time each day 30 tablet 11 08/29/2022 Active Active Problems Problem Noted Date Diagnosed Date Calculus of kidney 05/12/2022 Abdominal aortic aneurysm 05/04/2022 Pleural effusion 01/09/2020 Drug therapy finding 12/11/2019 Pericardial effusion 12/11/2019 Coronary atherosclerosis 03/30/2017 Essential (primary) hypertension 03/30/2017 Mixed hyperlipidemia 03/30/2017 Immunizations Name Administration Dates Next Due Pneumococcal Conjugate 07/07/2020 Family History Medical History Relation Comments Kidney disease Neg Hx Social History Tobacco Use Types Packs/Day Years Used Date Smoking Tobacco: Former Smokeless Tobacco: Never Alcohol Use Standard Drinks/Week Comments Yes 0 (1 standard drink = 0.6 oz pur e alcohol) rare Sex and Gender Information Value Date Recorded Sex Assigned at Not on file Gender Identity Not on file Sexual Orientation Not on file Last Filed Vital Signs Vital Sign Reading Time Taken Comments Blood Pressure 126/62 05/12/2022 9:17 AM CDT Pulse 84 05/12/2022 9:17 AM CDT Temperature 36.5 C (97.7 F) 05/12/2022 9:17 AM CDT Respiratory Rate - - Oxygen Saturation - - Inhaled Oxygen Concentration - - Weight 86.6 kg (191 lb) 05/12/2022 9:17 AM CDT Height 182.9 cm (6') 05/12/2022 9:17 AM CDT Body Mass Index 25.9 05/12/2022 9:17 AM CDT Plan of Treatment Health Maintenance Due Date Last Done Comments Pneumococcal PPSV23/PCV13 65 + Years / Low and Medium Risk (1 of 4 - PCV) 2012 Influenza Vaccine (#1) 2024 Care Teams Medical Education Coordinator Relationship Specialty Start Date End Date Lottie Holt MD [address] [place] [address] PCP - General Internal Medicine 03/31/22
--- OUTSIDE RECORDS SUMMARY | 2025-01-14 07:44 | XMS_ITS | Clinical Summary ---
Author Organization [facility] Address [address] [place] [address] Care Team Providers Care Citrus Fruit Packer Name Role Phone Lottie Holt MD Primary Care Provider [phone] Shana Keller MD Unavailable [phone] Mervat Scott ANP-BC Unavailable +- Kasia Voss CUT PRESSMAN, DELIVERY TABLE FEEDER-C Unavailable Allergies Active Allergy Reactions Criticality Noted Date Comments Coconut (Cocos Nucifera) Swelling Medium 12/11/2019 Lips swell Medications aspirin EC (ASPIRIN EC) 81 MG tabletIndicati ons:anticoagul ant Take 1 tablet (81 mg total) by mouth daily. Indications: anticoagulant 05/25/20 15 Active omeprazole (PRILOSEC) 20 MG capsuleIndicat ions:acud refux Take 1 capsule (20 mg total) by mouth daily. Indications: acud refux 05/25/20 15 Active acetaminophen 650 MG Tab CR Take 1 tablet (650 mg total) by mouth daily as needed (Pain). Active folic acid 1 MG tabletIndicati ons:supplement Take 1 tablet (1 mg total) by mouth daily. Indications: supplement 01/20/20 20 Active pravastatin 40 MG tabletIndicati ons:hyperchole stermia Take 1 tablet (40 mg total) by mouth nightly. Indications: hypercholestermia 01/20/20 20 Active Coenzyme Q10 (COQ10) 100 MG CapIndications :supplement Take 100 mg by mouth daily. Indications: supplement 01/20/20 20 Active Turmeric 400 MG CapIndications :supplement Take 400 mg by mouth daily. Indications: supplement 01/20/20 20 Active levothyroxine 200 MCG tabletIndicati ons:thyroid Take 1 tablet (200 mcg total) by mouth every morning. Indications: thyroid Acti ve methotrexate 2.5 MG tablet Take 2 tablets by mouth once a week. 12/21/19 21 Active fludrocortison e (FLORINEF) 0.1 MG tablet Take 1 tablet (0.1 mg total) by mouth daily. 08/24/20 23 Active lisinopril (PRINIVIL) 5 MG tablet Take 1 tablet (5 mg total) by mouth daily. 07/17/20 24 Active Multiple Vitamin (MULTIVITAMIN ADULT OR) Take 1 tablet by mouth daily. Active Active Problems Problem Noted Date Diagnosed Date Pleural effusion 01/09/2020 Pericardial effusion (HHS/HCC) 12/11/2019 Pericarditis (HHS/HCC) 12/11/2019 On methotrexate therapy 12/11/2019 Coronary artery disease invo lving [place] coronary artery of [place] heart without angina pectoris 03/30/2017 Essential (primary) hypertension 03/30/2017 Hyperlipidemia, mixed 03/30/2017 Abdominal aortic aneurysm (AAA) Immunizations Name Administration Dates Next Due Afluria 36 MONTHS+ (Prefille d Syringe IIV4) 12/13/2019(Deferred: Patient/family declined) Family History Medical History Relation Comments Diabetes Father Heart Attack Father Relation Status Comments Father Mother Social History Tobacco Use Types Packs/Day Years Used Date Smoking Tobacco: Former Pipe Q uit: 2007 Smokeless Tobacco: Never Comments:quit 2007 Alcohol Use Standard Drinks/Week Comments Yes 0 (1 standard drink = 0.6 oz pur e alcohol) occasionally Sex and Gender Information Value Date Recorded Sex Assigned at Not on file Legal Sex Male 8:47 PM CDT Gender Identity Not on file Sexual Orientation Not on file Last Filed Vital Signs Vital Sign Reading Time Taken Comments Blood Pressure 146/82 08/14/2024 10:15 AM CDT Pulse 89 08/14/2024 9:56 AM CDT Temperature 36.7 C (98.1 F) 02/12/2020 9:00 AM CDT Respiratory Rate 16 08/14/2024 9:56 AM CDT Oxygen Saturation 97% 08/14/2024 9:56 AM CDT Inhaled Oxygen Concentration - - Weight 88.8 kg (195 lb 12.8 oz) 08/14/2024 9:56 AM CDT Height 182.9 cm (6') 08/14/2024 9:56 AM CDT Body Mass Index 26.56 08/14/2024 9:56 AM CDT Plan of Treatment Upcoming Encounters Date Type Department Care Team ([facility] st Contact Info) Description 08/12/2025 10:00 AM CDT Office Visit [facility] [address] [place] [address] Kasia Voss, CUT PRESSMAN, DELIVERY TABLE FEEDER-C [address] [facility] [address] [place] [address] Health Maintenance Due Date Last Done Comments ASCVD Statin 1945 Hepatitis C 1965 DTaP, Tdap and Td Vaccines ( 1 - Tdap) 1966 Zoster Vaccines (1 of 2) 1997 Annual Medicare Wellness Visit 2012 Pneumococcal Vaccine: 65+ Years (2 of 2 - PPSV23 or PCV20) 09/01/2020 07/07/2020, 09/22/2017 ASCVD LDL 12/12/2020 12/12/2019, 08/24/2015 RSV Immunization or 60+ Years (1 - 1-dose 75+ series) 2022 COVID-19 Vaccine (1 - 2023-2 5 season) 2024 Influenza Adult (#1) 2024 Colorectal Cancer Screening FIT/FOBT (1 Year) Discontinued 01/14/2020 Meningococcal B Vaccine Aged Out No l onger eligible based on patient's age to complete this topic Meningococcal Vaccine Aged Out No aashish marlys eligible based on patient's age to complete this topic RSV Immunizations Under 20 Months Aged Out No longer eligible based on patient's age to complete this topic Procedures Procedure Name Priority Date/Time Associated Diagnosis Comments HC OCCULT BLOOD FECAL SCRN Nurse Collected Priority 01/14/2020 9:43 AM CDT LIPID PANEL Routine 12/12/2019 2:41 AM FINE GRADE OPERATOR from Last 3 Months or Most Recently Relevant to Health Maintenance Results * (ABNORMAL) OCCULT BLOOD, FECES, SCREENING (01/14/2020 9:43 AM CDT) OCCULT BLOOD FECAL NEGATIVE NEGATIVE 01/14/2020 11:38 AM CDT [facility] COLLECTION DATE 01/14/2020 11:38 AM CDT [facility] OCCULT BLOOD SPEC 2 NO SAMPLE RECEIVED (A) NEGATIVE 01/15/2020 10:44 AM CDT [facility] OCCULT BLOOD SPEC 3 NO SAMPLE RECEIVED (A) NEGATIVE 01/15/2020 10:44 AM CDT [facility] STOOL SPECIMEN / Unknown 01/14/2020 9:43 AM CDT Jose Ramon Jameson MD BODY FLUIDS AND STOOLS KATHI CALIX Final Result Performing Organization Address City/State/[facility] Co de Phone Number [facility] [address] [place] [address], [id number] * (ABNORMAL) LIPID PANEL (12/12/2019 2:41 AM FINE GRADE OPERATOR) Pathologist [facility] CHOLESTEROL 95 MG/DL 12/12/2019 4:54 AM [facility] Comment:DESIRABLE: <200 TRIGLYCERIDES 73 MG/DL 12/12/2019 4:54 AM [facility] Comment:<150 NORMAL HDL 25(L) >39 MG/DL 12/12/2019 4:54 AM [facility] LDL (CALCULATED) 55 MG/DL 12/12/19 4:54 AM [facility] Comment:<100 OPTIMAL VLDL CALCULATION 15 MG/DL 12/12/19 4:54 AM [facility] Comment:REFERENCE RANGE NOT ESTABLISHED CHOL/HDL RATIO 3.8 12/12/2019 4:54 AM [facility] Comment:REFERENCE RANGE NOT ESTABLISHED LDL/HDL 2.2 12/12/2019 4:54 AM [facility] Comment:REFERENCE RANGE NOT ESTABLISHED NON HDL CHOLESTEROL 70 MG/DL 12/12/2019 4:54 AM FINE GRADE OPERATOR [facility] Comment:REFERENCE RANGE NOT ESTABLISHED 12/12/2019 2:41 AM FINE GRADE OPERATOR Ralph Medina DO LABORATORY Final Result [facility] [address] [place] [address], [id number] from Last 3 Months or Most Recently Relevant to Health Maintenance Insurance MEDICARE [id number] [place] [address] Advance Directives * Full Code (Latest Code Status on File) Date Activated Date Inactivated Comments 01/09/2020 8:58 PM 01/19/2020 2:22 PM * Full Code Date Activated Date Inactivated Comments 12/11/2019 2:18 PM 12/13/2019 2:34 PM Care Teams Citrus Fruit Packer Relationship Specialty Start Date End Date Lottie Holt MD [address] [place] [phone] PCP - General INTERNAL MEDICINE 02/27/17 Shana Keller MD [address] [place] [address] INTERVENTIONAL CARDIOLOGY 02/28/24 Mervat Scott, ANP-BC [address] [place] [address] Nurse Practitioner NURSE PRACTITIONER ADULT HEALTH 02/28/24 Kasia Voss APRN, DELIVERY TABLE FEEDER-C [address] [facility] [address] [place] [address] NURSE PRACTITIONER 08/14/24
--- OUTSIDE RECORDS SUMMARY | 2025-01-14 07:44 | XMS_ITS | Encounter Summary ---
Author Organization [facility] Address [address] [place] [address] Care Team Providers Care Recording Studio Internship Name Role Phone Lottie Holt MD Primary Care Provider [phone] Carter Alvarado MD Unavailable Unavailab David Luther MD Unavailable Unavailable Marciano Chauhan MD Unavailable UnavailShana Martinez MD Unavailable [phone] Mervat Scott ANP- Unavailable [phone] Kasia Voss APRN, ASSEMBLER RUBBER FOOTWEAR-C Unavailable Encounter Details Date Type Department Care Team (Late Contact Info) Description 01/20/2016 Abstract [facility] AT [address] [address] Carter Alvarado MD Social History Tobacco Use Types Packs/Day Years Used Date Smoking Tobacco: Former Alcohol Use Standard Drinks/Week Comments Yes 0 (1 standard drink = 0.6 oz pur e alcohol) Occasionally. Sex and Gender Information Value Date Recorded Sex Assigned at Not on file Legal Sex Male 8:47 PM CDT Gender Identity Not on file Sexual Orientation Not on file documented as of this encounter Plan of Treatment Upcoming Encounters Date Type Department Care Team (Late Contact Info) Description 08/12/2025 10:00 AM CDT Office Visit [facility] eld [address] [place] [phone] Kasia Voss, [place], ASSEMBLER RUBBER FOOTWEAR-C [address] [facility] [address] [place] [address] documented as of this encounter Visit Diagnoses Not on filedocumented in this encounter Care Teams Recording Studio Internship Relationship Specialty Start Date End Date Lottie Holt MD [address] [place] [address] PCP - General INTERNAL MEDICINE 02/27/17 Carter Alvarado MD [address] [place] [address] CARDIOVASCULAR DISEASE 02/27/17 12/05/18 David Joshi MD [address] [place] [address] INTERVENTIONAL CARDIOLOGY 12/06/18 11/13/19 Marciano Chauhan MD [address] [place] [phone] Consulting Physician CARDIOVASCULAR DISEASE 12/31/2002/26 Shana Keller MD [address] [place] [phone] INTERVENTIONAL CARDIOLOGY 02/28/24 Mervat Scott ANP- [address] [place] [address] Nurse Practitioner NURSE PRACTITIONER ADULT HEALTH 02/28/24 Kasia Voss APRN, ASSEMBLER RUBBER FOOTWEAR-C [address] [facility] [address] [place] [phone] NURSE PRACTITIONER 08/14/24 documented as of this encounter
== END 2025-01-14 07:39 | disposition home or self-care (01) ==
LOC: CHSIMG 07:40
PROVIDERS: PCP Internal Medicine; Visit Provider Internal Medicine
DX: I71.40 Abdominal aortic aneurysm, without rupture, unspecified (principal)
CPT/HCPCS: 76775

== ENCOUNTER 2025-03-18 02:22 | Day surgery (SDC) | payer MEDICARE, SELFPAY ==
[2025-03-05 13:23] VITALS: BMI 27.9
--- OUTSIDE RECORDS SUMMARY | 2025-03-18 02:27 | XMS_ITS | Encounter Summary ---
Author Organization [facility] Address [address] [place] [address] Care Team Providers Care Thermo Processor Name Role Phone Lottie Holt MD Primary Care Provider [phone] Carter Alvarado MD Unavailable Unavailab David Luther MD Unavailable Unavailable Marciano Chauhan MD Unavailable [phone] Shana Keller MD Unavailable [phone] Mervat Scott [facility]- Unavailable [phone] Kasia Voss APRN, BIRD TRAPPER-C Unavailable [phone] Encounter Details Date Type Department Care Team (Late Contact Info) Description 01/20/2016 Abstract [facility] AT [address] [address] Carter Alvarado MD Social History [...] 08/12/2025 10:00 AM CDT [facility] [address] [place] [address] Kasia Voss, [place], BIRD TRAPPER-C [address] [phone] documented as of this encounter Visit Diagnoses Not on filedocumented in this encounter Care Teams Thermo Processor Relationship Specialty Start Date End Date Lottie Holt MD [address] [place] [address] PCP - General INTERNAL MEDICINE 02/27/17 Carter Alvarado MD [address] [place] [address] CARDIOVASCULAR DISEASE 02/27/17 12/05/18 David Joshi MD [address] [place] [address] INTERVENTIONAL CARDIOLOGY 12/06/18 11/13/19 Marciano Chauhan MD [address] [place] [phone] Consulting Physician CARDIOVASCULAR DISEASE 12/31/20 Shana Keller MD [address] [place] [phone] INTERVENTIONAL CARDIOLOGY 02/28/24 Mervat Scott, ANP- [address] [place] [address] Nurse Practitioner NURSE PRACTITIONER ADULT HEALTH 02/28/24 Kasia Voss APRN, BIRD TRAPPER-C [address] [phone] NURSE PRACTITIONER 08/14/24 documented as of this encounter
--- OUTSIDE RECORDS SUMMARY | 2025-03-18 02:27 | XMS_ITS | Clinical Summary ---
Author Organization [facility] Address [address] [place] [address] Care Team Providers Care Research Professional Name Role Phone Lottie Holt MD Primary Care Provider [phone] Shana Keller MD Unavailable [phone] Mervat Scott ANP-BC Unavailable +- Kasia Voss LEATHER REPAIRER, SUPERVISOR RECORD PRESS-C Unavailable Allergies Active Allergy Reactions Criticality Noted [...] therapy 12/11/2019 Coronary artery disease invo lving [place] coronary artery of [place] heart without angina pectoris 03/30/2017 Essential (primary) hypertension 03/30/2017 Hyperlipidemia, mixed 03/30/2017 Abdominal aortic aneurysm (AAA) Immunizations Immunization Administration Dates Next Due Afluria 36 MONTHS+ [...] Upcoming Encounters Date Type Department Care Team ([facility] st Contact Info) Description 08/12/2025 10:00 AM CDT Office Visit [facility] el[facility] [address] [place] [address] Kasia Voss, LEATHER REPAIRER, SUPERVISOR RECORD PRESS-C [address] [facility] [address] [place] [address] Health Maintenance Due Date Last Done Comments ASCVD Statin 1945 Hepatitis C 1965 DTaP, Tdap and Td Vaccines ( 1 - Tdap) 1966 Zoster Vaccines (1 of 2) 1997 Annual Medicare Wellness Visit 2012 Pneumococcal Vaccine: 50+ Years (2 of 2 - PPSV23) 11/17/2017 07/07/2020, 09/22/2017 ASCVD LDL 12/12/2020 12/12/2019, 08/24/2015 RSV Immunization or 60+ Years (1 - 1-dose 75+ series) 2022 COVID-19 Vaccine (1 - 2023-2 5 season) 2024 Colorectal Cancer Screening FIT/FOBT (1 Year) [...] CDT LIPID PANEL Routine 12/12/2019 2:41 AM TOLL LINE MECHANIC from Last 3 Months or Most Recently Relevant to Health Maintenance Results * (ABNORMAL) OCCULT BLOOD, FECES, SCREENING (01/14/2020 9:43 AM CDT) Pathologist [facility] OCCULT BLOOD FECAL NEGATIVE NEGATIVE 01/14/2020 11:38 AM CDT [facility] COLLECTION DATE 01/14/2020 11:38 AM CDT [facility] OCCULT BLOOD SPEC 2 NO SAMPLE RECEIVED (A) NEGATIVE 01/15/2020 10:44 AM CDT [facility] OCCULT BLOOD SPEC 3 NO SAMPLE RECEIVED (A) NEGATIVE 01/15/2020 10:44 AM CDT [facility] STOOL SPECIMEN / Unknown 01/14/2020 9:43 AM CDT Jose Ramon Jameson MD BODY FLUIDS AND STOOLS KATHI CALIX Final Result [facility] [address] [place] [address], [id number] * (ABNORMAL) LIPID PANEL (12/12/2019 2:41 AM TOLL LINE MECHANIC) [facility] CHOLESTEROL 95 MG/DL 12/12/2019 4:54 AM [facility] Comment:DESIRABLE: <200 TRIGLYCERIDES 73 MG/DL 12/12/2019 4:54 AM [facility] Comment:<150 NORMAL HDL 25(L) >39 MG/DL 12/12/2019 4:54 AM [facility] LDL (CALCULATED) 55 MG/DL 12/12/19 4:54 AM [facility] Comment:<100 OPTIMAL VLDL CALCULATION 15 MG/DL 12/12/19 4:54 AM [facility] Comment:REFERENCE RANGE NOT ESTABLISHED CHOL/HDL RATIO 3.8 12/12/2019 4:54 AM [facility] Comment:REFERENCE RANGE NOT ESTABLISHED LDL/HDL 2.2 12/12/2019 4:54 AM [facility] Comment:REFERENCE RANGE NOT ESTABLISHED NON HDL CHOLESTEROL 70 MG/DL 12/12/2019 4:54 AM TOLL LINE MECHANIC [facility] Comment:REFERENCE RANGE NOT ESTABLISHED 12/12/2019 2:41 AM TOLL LINE MECHANIC Ralph Medina DO LABORATORY Final Result [facility] [address] [place] [address], [id number] from Last 3 Months or Most Recently Relevant to Health Maintenance Insurance MEDICARE MEDICARE Advance Directives * Full Code (Latest Code Status on File) Date Activated Date Inactivated Comments 01/09/2020 8:58 PM 01/19/2020 2:22 PM * Full Code Date Activated Date Inactivated Comments 12/11/2019 2:18 PM 12/13/2019 2:34 PM Care Teams Research Professional Relationship Specialty Start Date End Date Lottei Holt MD [address] [place] [phone] PCP - General INTERNAL MEDICINE 02/27/17 Shana Keller MD [address] [place] [address] INTERVENTIONAL CARDIOLOGY 02/28/24 Mervat Scott, ANP- [address] [place] [address] Nurse Practitioner NURSE PRACTITIONER ADULT HEALTH 02/28/24 Kasia Voss APRN, SUPERVISOR RECORD PRESS-C [address] [place] [address] [phone] NURSE PRACTITIONER 08/14/24
--- OUTSIDE RECORDS SUMMARY | 2025-03-18 02:27 | XMS_ITS | Clinical Summary ---
Author Organization [facility] Address [address] [place] [address] Phone Care Team Providers Care Telephone Recorder Name Role Phone Lottie Holt MD Primary Care Provider [phone] Allergies Active Allergy Reactions Criticality Noted Date Comments Coconut (Cocos Nucifera) Swelling Medium 12/11/2019 Lips swell Medications aspirin (ST GUICHO) 81 MG EC tablet [...] (primary) hypertension 03/30/2017 Mixed hyperlipidemia 03/30/2017 Immunizations Immunization Administration Dates Next Due Pneumococcal Conjugate 07/07/2020 [...] at Not on file Legal Sex Male 10:59 AM MDT Gender Identity Not on file Sexual Orientation [...] Medium Risk (1 of 4 - PCV) 1997 Influenza Vaccine (Season Ended) 2025 Insurance MEDICARE [facility] Care Teams Telephone Recorder Relationship Specialty Start Date End Date Lottie Holt MD [address] [place] [address] PCP - General Internal Medicine 03/31/22
[2025-03-18 08:47] VITALS: BP 140/92; PULSE 108; RESP 16; TEMP 36.6; O2SAT 99
[2025-03-18] MEDS: LACTATED RINGERS 1,000 ML 150 ML IV CONT (08:57)
--- NOTE | 2025-03-18 09:23 | P.PNAN_ITS ---
Anes - Initial Pre Proc Eval Procedure: Operation Date: 03/18/25 10:15 Proposed Procedures p Screening Colonoscopy - Samir Drew DO Date/Time: 03/18/25 09:23 Surgeon: Samir Drew DO Pre Op Diagnosis: Prior history of colon polyps Patient Data Age: 79 Gender: M Height: 1.8 m Weight: 86.6 kg Last Vital Signs Temp 36.6 C 03/18/25 08:47 Pulse 108 H 03/18/25 08:47 Resp 16 03/18/25 08:47 BP 140/92 H 03/18/25 08:47 Pulse Ox 99 03/18/25 08:47 O2 Del Method Room Air 03/18/25 08:47 Allergies Allergy/AdvReac Type Severity Reaction Status Date / Time coconut Allergy Swelling Verified 03/18/25 08:41 of Lip/Tongue/Throat Home Medications ?Medication ?Instructions ?Recorded ?Confirmed ?Type folic acid 1 mg tablet 1 mg PO DAILY 12/10/19 03/18/25 History coQ10 (ubiquinol) 200 mg capsule 200 mg PO DAILY 01/03/22 03/18/25 History levothyroxine 200 mcg tablet 200 mcg PO DAILY 01/03/22 03/18/25 History omeprazole 20 mg capsule,delayed 20 mg PO DAILY 01/03/22 03/18/25 History release turmeric 100 mg-miladys 150 1 cap PO DAILY 01/03/22 03/18/25 History mg-olive 50 mg-oreg 150 mg-capryl capsule acetaminophen 650 mg 650 mg PO Q12H PRN Pain 03/23/22 03/05/25 History tablet,extended release (Tylenol Arthritis Pain) jmfoqnia-egevxdte-ejabe acid 400 1 tablet PO DAILY 03/23/22 03/18/25 History mcg-vit K 20 mcg-lycop 300 mcg tablet (Men's One Daily) aspirin 81 mg tablet,delayed 81 mg PO DAILY 11/15/22 03/18/25 History release methotrexate sodium 2.5 mg tablet 2.5 mg PO WEEKLY 06/05/23 03/18/25 History fludrocortisone 0.1 mg tablet See Rx Instructions .Route 11/04/24 03/18/25 Rx .COMPLEX #90 tabs lisinopril 5 mg tablet 5 mg PO DAILY 11/25/24 03/18/25 History pravastatin 40 mg tablet 40 mg PO DAILY 11/25/24 03/18/25 History Patient hx anesthesia problems: none Family hx anesthesia problems: none Results Review: All pre-operative results and documents have been reviewed as part of the pre- operative evaluation. [facility] Past Medical History Medical History Renal failure, chronic Renal mass AAA (abdominal aortic aneurysm) Hypothyroidism Rheumatoid arteritis HTN (hypertension) HLD (hyperlipidemia) Surgical History Surgical History History of prostatectomy History of appendectomy Social History Social History Smoking status: Former smoker Tobacco type: pipe Second hand tobacco smoke exposure: No Smoking end date: 11/06/07 Additional smoking assessment comments: SMOKED A PIPE DAILY. QUIT 2007 Alcohol intake: current Alcohol use details: Occasionally Substance use: former Substance use type: does not use Do You Feel Safe in your Home?: Yes Lack of Transportation: No Lack of Food: Never True Current Housing: I Have Housing Concerned About Future Housing: No Difficulty Paying Gas/Electric Bills: No Difficulty Paying for Meds: No Currently Unemployed: No Education: Associate Degree Living arrangements: with family Gender identity (if verbalized by the patient): Male Spiritual care concerns: No Agree to blood products: Yes Anes - Eval Final PreProcedure Day of Procedure 03/18/25 09:23 Patient weight: normal Heart: regular rate and rhythm Lungs: clear to auscultation Airway: Mallampati scale class III Neurological: alert and oriented Last oral intake: >/= 8 hours ASA classification: III Emergent: no Anesthetic plan: proceed Anesthesia type and monitoring: general GIVS and standard monitoring Results Review: All pre-operative results and documents have been reviewed as part of the pre- operative evaluation. Informed Consent: The patient's anesthetic plan and its attendant risks and benefits were discussed with the patient/family/POA. Questions were solicited and answers provided to the satisfaction of the patient/family/POA.
--- NOTE | 2025-03-18 09:37 | PM.IMHP ---
H&P: HPI History of Present Illness Date/Time: 03/18/25 09:37 Chief Complaint: history of colon polyps Narrative: this is a 79-year-old man who presents for colonoscopy. His last colonoscopy was 3 years ago and several polyps were removed at that time. He denies any hematochezia or melena. He denies family history of colon cancer. Review of Systems Review of Systems: All systems reviewed & are unremarkable except as noted in HPI and below Constitutional: Constitutional: Denies chills, Denies fever(s), Denies headache(s) and Denies weight loss Eyes: Eyes: Denies change in vision ENT: Denies dizziness, Denies headache(s), Denies neck mass and Denies throat swelling Cardiovascular: Cardiovascular: Denies chest pain, Denies lightheadedness and Denies dyspnea Respiratory: Respiratory: Denies cough, Denies dyspnea and Denies wheezing Gastrointestinal: Gastrointestinal: Denies abdominal pain, Denies change in bowel habits, Denies nausea and Denies vomiting Genitourinary: Genitourinary: Denies hematuria and Denies dysuria Musculoskeletal: Musculoskeletal: Reports as per HPI Integumentary/Breasts: Skin/Breast: Reports as per HPI Neurologic: Denies dizziness and Denies headache(s) Allergic/Immunologic: Allergic/Immunologic: Denies throat swelling and Denies wheezing PMFSH Past Medical History Medical History Renal failure, chronic Renal mass AAA (abdominal aortic aneurysm) Hypothyroidism Rheumatoid arteritis HTN (hypertension) HLD (hyperlipidemia) Surgical History Surgical History History of prostatectomy History of appendectomy Social History Social History Smoking status: Former smoker Tobacco type: pipe Second hand tobacco smoke exposure: No Smoking end date: 11/06/07 Additional smoking assessment comments: SMOKED A PIPE DAILY. QUIT 2008 Alcohol intake: current Alcohol use details: Occasionally Substance use: former Substance use type: does not use Do You Feel Safe in your Home?: Yes Lack of Transportation: No Lack of Food: Never True Current Housing: I Have Housing Concerned About Future Housing: No Difficulty Paying Gas/Electric Bills: No Difficulty Paying for Meds: No Currently Unemployed: No Education: Associate Degree Living arrangements: with family Gender identity (if verbalized by the patient): Male Spiritual care concerns: No Agree to blood products: Yes Meds Home Medications and Allergies Home Medications ?Medication ?Instructions ?Recorded ?Confirmed ?Type folic acid 1 mg tablet 1 mg PO DAILY 12/10/19 03/18/25 History coQ10 (ubiquinol) 200 mg capsule 200 mg PO DAILY 01/03/22 03/18/25 History levothyroxine 200 mcg tablet 200 mcg PO DAILY 01/03/22 03/18/25 History omeprazole 20 mg capsule,delayed 20 mg PO DAILY 01/03/22 03/18/25 History release turmeric 100 mg-miladys 150 1 cap PO DAILY 01/03/22 03/18/25 History mg-olive 50 mg-oreg 150 mg-capryl capsule acetaminophen 650 mg 650 mg PO Q12H PRN Pain 03/23/22 03/05/25 History tablet,extended release (Tylenol Arthritis Pain) hkksaamx-nbpayxlf-oqsfh acid 400 1 tablet PO DAILY 03/23/22 03/18/25 History mcg-vit K 20 mcg-lycop 300 mcg tablet (Men's One Daily) aspirin 81 mg tablet,delayed 81 mg PO DAILY 11/15/22 03/18/25 History release methotrexate sodium 2.5 mg tablet 2.5 mg PO WEEKLY 06/05/23 03/18/25 History fludrocortisone 0.1 mg tablet See Rx Instructions .Route 11/04/24 03/18/25 Rx .COMPLEX #90 tabs lisinopril 5 mg tablet 5 mg PO DAILY 11/25/24 03/18/25 History pravastatin 40 mg tablet 40 mg PO DAILY 11/25/24 03/18/25 History Allergies Allergy/AdvReac Type Severity Reaction Status Date / Time coconut Allergy Swelling Verified 03/18/25 08:41 of Lip/Tongue/Throat Vital Signs Vital Signs - 24 hr 03/18/25 08:47 Temperature 98 F Pulse Rate 108 H Respiratory Rate 16 Blood Pressure 140/92 H Pulse Oximetry 99 Oxygen Delivery Room Air Exam Const: General: no acute distress and alert Orientation/consciousness: patient oriented x3 HENMT: Head: normocephalic and atraumatic Ears: hearing grossly normal bilaterally Face/Nose/Sinus: Normal nares present Mouth: Yes Normal oral and palatal mucosa present Eyes: Periorbital: periorbital findings normal Sclera: sclerae normal EOM: EOMs intact bilaterally Neck: Neck: normal visual inspection, no lymphadenopathy and trachea midline Chest: Chest palpation & inspection: normal inspection of the chest Resp: Effort & Inspection: normal respiratory effort Auscultation: clear to auscultation bilaterally Cardio: Jugular venous distension: no JVD Rate: regular rate Rhythm: regular rhythm Heart sounds: S1 normal heart sound present and S2 normal heart sound present Peripheral pulses: Peripheral pulses 2+ throughout GI: Inspection: normal to inspection GI Palp: Yes Soft to palpation, No Tenderness to palpation present (GI), No Guarding due to palpation present (GI) and No Rebound tenderness present Percussion: Yes normal to percussion Auscultation: normal bowel sounds : General: Yes no CVA tenderness Back/Spine/Pelvis: Back: no CVA tenderness Neuro: General: patient oriented x3, no focal motor deficits and CN's II-XI intact bilaterally Cognition (Neuro): normal cognition Speech: normal speech Motor exam (neuro): 5/5 motor strength present throughout Extrem: General: capillary refill normal and no clubbing, cyanosis or edema Assessment and Plan Assessment and plan (1) History of colon polyps: Code(s): Z86.010 - Personal history of colon polyps Status: Acute Assessment and Plan: I have recommended colonoscopy. I have discussed the procedure, risks, benefits, and alternatives. Questions were answered. Patient is agreeable to proceed.
[2025-03-18 09:59] VITALS: BP 87/53; PULSE 74; RESP 17; O2SAT 96
[2025-03-18 10:09] VITALS: BP 97/58; PULSE 70; RESP 16; O2SAT 97
[2025-03-18 10:19] VITALS: BP 128/74; PULSE 76; RESP 18; O2SAT 98
== END 2025-03-18 10:30 | disposition home or self-care (01) ==
PROVIDERS: PCP Internal Medicine; Visit Provider Surgery
PROC: 0DJD8ZZ Inspection of Lower Intestinal Tract, Via Natural or Artificial Opening Endoscopic (ICD-10-PCS; CPT 45378; principal; 2025-03-18 10:15)
DX: Z12.11 Encounter for screening for malignant neoplasm of colon (principal); E78.5 Hyperlipidemia, unspecified; I12.9 Hypertensive chronic kidney disease with stage 1 through stage 4 chronic kidney disease, or unspecified chronic kidney disease; N18.9 Chronic kidney disease, unspecified; E03.9 Hypothyroidism, unspecified; M06.9 Rheumatoid arthritis, unspecified; Z79.82 Long term (current) use of aspirin; Z98.890 Other specified postprocedural states; Z86.0100 Personal history of colon polyps, unspecified; Z86.79 Personal history of other diseases of the circulatory system; Z87.891 Personal history of nicotine dependence
CPT/HCPCS: G0105; J2003; J2704; J7120

== ENCOUNTER 2025-04-01 15:10 | Emergency (ER) | payer MEDICARE, SELFPAY ==
[2025-04-01] VITALS (40 sets, daily range): BP systolic 155–211; BP diastolic 78–109; PULSE 60–84; RESP 14–18; TEMP 36.7–36.8; O2SAT 94–99
--- NOTE | ~2025-04-01 | XR_ITS ---
XR hip LT min 3V w AP pelvis Ordering provider: Dariusz Wesley MD History: . Fall X 4 days, Chiropractor sent PT after office XR . Comparison: None. FINDINGS: BONES: Fracture in the left femoral neck is noted. No other fractures seen. HIP JOINT SPACES: Normal. SACROILIAC JOINT SPACES/LUMBAR SPINE: The sacroiliac joint spaces are normal. Mild degenerative zhang es of the visualized lower lumbar spine. PUBIC SYMPHYSIS: Normal. SOFT TISSUES: Normal. IMPRESSION: Fracture left femoral neck. Reviewed, dictated and finalized at location A. IMPRESSION: Fracture left femoral neck.
--- NOTE | ~2025-04-01 | CT_ITS ---
Procedure: CT hip LT wo con Ordering provider: Dariusz Wesley MD History: . XR F/U - PRE-OP/Orthopedic Request . Comparison: None. Technique: Thin slice axial CT of the No IV contrast was given. Sagittal and coronal reformatted imag es were also obtained and reviewed. Radiation reduction technique utilized. The dose-length product w as 310.81 mGy-cm. Findings: BONES: Fracture of the left femoral neck is seen in the subcapital area. JOINT SPACES: Mild to moderate left hip osteoarthritic changes. SOFT TISSUES: Normal IMPRESSION: Fracture of the left femoral neck. Reviewed, dictated and finalized at location A.
--- NOTE | ~2025-04-01 | XR_ITS ---
CHEST RADIOGRAPH CLINICAL HISTORY: PRE-OP - LT hip fracture . COMPARISON: 02/24/2020 TECHNIQUE: Single portable view of the chest. FINDINGS The cardiomediastinal silhouette is unremarkable. Small left-sided pleural effusion. The lungs are otherwise clear. IMPRESSION: Small left-sided pleural effusion, without focal infiltrate. Reviewed, dictated and finalized at location A.
--- OUTSIDE RECORDS SUMMARY | 2025-04-01 15:20 | XMS_ITS | Clinical Summary ---
Author Organization [facility] Address [address] [place] [phone] Phone Care Team Providers Care Hide Cleaner Name Role Phone Lottie Holt MD Primary Care Provider [phone] Allergies Active Allergy Reactions Criticality Noted Date [...] Influenza Vaccine (Season Ended) 2025 Insurance MEDICARE [facility] Care Teams Hide Cleaner Relationship Specialty Start Date End Date Lottie Holt MD [address] [place] [address] PCP - General Internal Medicine 03/31/22
--- NOTE | 2025-04-01 15:24 | ED_ITS ---
HPI - Fall General Chief Complaint: Extremity Injury, Lower Stated Complaint: left hip pain; fracture on x-ray Time Seen by Provider: 04/01/25 15:24 Source: patient Mode of arrival: ambulatory Limitations: no limitations History of Present Illness HPI Narrative: 79 years old white male cleaning the gutter, going down the ladder lost his balance in the last 2 steps down, landed on the left side of his body, complaining of left hip pain 5 days ago. Patient denies other injuries. History of hypertension hyperlipidemia hypothyroidism currently on baby aspirin once a day. Related Data Home Medications ?Medication ?Instructions ?Recorded ?Confirmed ?Last Taken ?Type folic acid 1 mg tablet 1 mg PO DAILY 12/10/19 03/18/25 03/16/25 History coQ10 (ubiquinol) 200 mg capsule 200 mg PO DAILY 01/03/22 03/18/25 03/17/25 History levothyroxine 200 mcg tablet 200 mcg PO DAILY 01/03/22 03/18/25 03/17/25 History omeprazole 20 mg capsule,delayed 20 mg PO DAILY 01/03/22 03/18/25 03/17/25 History release turmeric 100 mg-miladys 150 1 cap PO DAILY 01/03/22 03/18/25 03/16/25 History mg-olive 50 mg-oreg 150 mg-capryl capsule acetaminophen 650 mg 650 mg PO Q12H PRN Pain 03/23/22 03/05/25 03/28/22 History tablet,extended release (Tylenol Arthritis Pain) ridonkbu-ijnzxnhz-gsvlg acid 400 1 tablet PO DAILY 03/23/22 03/18/25 03/16/25 History mcg-vit K 20 mcg-lycop 300 mcg tablet (Men's One Daily) aspirin 81 mg tablet,delayed 81 mg PO DAILY 11/15/22 03/18/25 03/17/25 History release methotrexate sodium 2.5 mg tablet 2.5 mg PO WEEKLY 06/05/23 03/18/25 03/17/25 History lisinopril 5 mg tablet 5 mg PO DAILY 11/25/24 03/18/25 03/17/25 History pravastatin 40 mg tablet 40 mg PO DAILY 11/25/24 03/18/25 03/17/25 History Allergies Allergy/AdvReac Type Severity Reaction Status Date / Time coconut Allergy Swelling Verified 04/01/25 15:26 of Lip/Tongue/Throat Review of Systems 2 Review of Systems: All systems reviewed & are unremarkable except as noted in HPI and below PMFSH Past Medical History Medical History Renal failure, chronic Renal mass AAA (abdominal aortic aneurysm) Hypothyroidism Rheumatoid arteritis HTN (hypertension) HLD (hyperlipidemia) Surgical History Surgical History History of prostatectomy History of appendectomy Social History Social History Smoking status: Former smoker Tobacco type: pipe Second hand tobacco smoke exposure: No Smoking end date: 11/06/07 Additional smoking assessment comments: SMOKED A PIPE DAILY. QUIT 2007 Alcohol intake: current Alcohol use details: Occasionally Substance use: former Substance use type: does not use Do You Feel Safe in your Home?: Yes Lack of Transportation: No Lack of Food: Never True Current Housing: I Have Housing Concerned About Future Housing: No Difficulty Paying Gas/Electric Bills: No Difficulty Paying for Meds: No Currently Unemployed: No Education: Associate Degree Living arrangements: with family Gender identity (if verbalized by the patient): Male Spiritual care concerns: No Agree to blood products: Yes Exam 2 Narrative: General appearance: Well-developed, well-nourished Skin: Normal color Head: Normocephalic, nontraumatic Eyes: Clear conjunctiva ENT: Oropharynx normal, ears normal, nose normal Neck: Supple, nontender Chest and respiratory: Airway patent, no respiratory distress, no accessory muscle use Heart: Regular rate/rhythm Abdomen: Soft, nontender, no organomegaly, quiet bowel sounds Vascular: Normal peripheral pulses, normal capillary refill. Musculoskeletal: Slight limited range of motion on the left hip no shortening no external rotation of the left lower extremity Neurologic: Alert and oriented ?3, [employer] SAL[employer] REPRESENTATIVE is normal as tested, no gross motor deficit Course Consultations Consultation #1: DR GONZALEZ ACCEPTED PATIENT TRANSFERRED TO [facility] Date: 04/01/25 Time: 16:53 Consultation #2: TERESA NURSE [facility] THE [facility] WHO ACCEPTED PATIENT TRANSFER Date: 04/01/25 Vital Signs Vital signs: Vital Signs Temperature 36.7 C 04/01/25 15:10 Pulse Rate 84 04/01/25 15:10 Respiratory Rate 18 04/01/25 15:10 Blood Pressure 184/87 H 04/01/25 15:10 Pulse Oximetry 96 04/01/25 15:10 Oxygen Delivery Room Air 04/01/25 15:10 Temperature 36.7 C 04/01/25 15:10 Pulse Rate 68 04/01/25 17:31 Respiratory Rate 14 04/01/25 17:31 Blood Pressure 171/94 H 04/01/25 17:31 Pulse Oximetry 99 04/01/25 17:54 Oxygen Delivery Room Air 04/01/25 15:10 MDM - Fall MDM Narrative Medical decision making narrative: a fall, left hip pain Five days ago X-ray of the pelvis/left hip showed left femoral neck fracture Differential Diagnosis Differential diagnosis: Likely other ( hip fracture, contusion) Medical Records Attestation: I reviewed the patient's medical records. Lab Data Attestation: I reviewed the patient's lab results. 04/01/25 16:16 04/01/25 16:16 Labs: Lab Results 04/01/25 Range/Units 16:16 WBC 7.5 (4.8-10.8) K/mm3 RBC 3.82 L (4.70-6.10) M/mm3 Hgb 11.0 L (12.4-15.3) g/dL Hct 34.8 L (37.0-46.0) % MCV 91.1 (78.0-102.0) fL MCH 28.8 (27.0-31.0) pg MCHC 31.6 L (32-36) g/dL RDW 13.8 (11.6-14.4) % Plt Count 275 (150-420) K/mm3 MPV 9.4 (8.7-11.0) fl Immature Gran % (Auto) 0.4 H (0.0-0.0) % Neut % (Auto) 68.3 (50.0-70.0) % Lymph % (Auto) 16.2 L (18.0-42.0) % [place] % (Auto) 6.0 (2.0-11.0) % Eos % (Auto) 8.0 H (1.0-6.0) % Baso % (Auto) 1.1 H (0.0-1.0) % Lymph # (Auto) 1.21 (1.10-4.50) K/mm3 [place] # (Auto) 0.45 (0.10-0.90) K/mm3 Eos # (Auto) 0.60 H (0.02-0.50) K/mm3 Baso # (Auto) 0.08 (0.00-0.10) K/mm3 Abs Immat Gran (auto) 0.03 H (0.00-0.00) K/mm3 Absolute Neuts (auto) 5.10 (1.70-7.20) K/mm3 Absolute Nucleated RBC 0.00 (0.00-0.00) K/mm3 Nucleated RBC % 0.0 (0-0.0) % PT 10.5 (9.50-12.1) Seconds INR 0.9 APTT 24.7 (23.9-30.70) Sec Sodium 141 (137-145) mmol/L Potassium 4.6 (3.4-5.0) mmol/L Chloride 116 H (98-107) mmol/L Carbon Dioxide 19 L (22-30) mmol/L Anion Gap 6 (4-12) mmol/L BUN 37 H (9-20) mg/dL Creatinine 2.21 H (0.7-1.3) mg/dL Estim Creat Clear Calc 28 ml/min Estimated GFR 29 L (59 - ) Glucose 131 H (65-110) mg/dL Calculated Osmolality 302 H (285-295) mOsm/kg Calcium 8.2 L (8.4-10.2) mg/dL Total Bilirubin 0.3 (0.2-1.3) mg/dL AST 24 (17-59) U/L ALT 15 (6-50) U/L Alkaline Phosphatase 53 (38-126) U/L Total Protein 6.6 (6.3-8.2) g/dL Albumin 3.4 L (3.5-5.1) g/dL Imaging Data Radiologist's impression: Impressions Hip/Pelvis X-Ray 04/01/25 15:56 IMPRESSION: Fracture left femoral neck. ECG Data EKG #1: Attestation: I personally reviewed and interpreted this ECG as follows: ECG completion date: 04/01/25 Interpretation: normal sinus rhythm at 70 beats per minute, left atrial enlargement, left ventricular hypertrophy, abnormal EKG Critical Care Time Critical Care Time Critical Care Time: No Discharge Plan Discharge Clinical Impression: Fracture of left hip Patient Disposition: Acute Care Hospital Condition: Stable Patient Language: Lithuanian Prescriptions: No Action folic acid 1 mg tablet 1 mg PO DAILY aspirin 81 mg tablet,delayed release (DR/EC) 81 mg PO DAILY methotrexate sodium 2.5 mg tablet 2.5 mg PO WEEKLY Rx Instructions: takes 2.5 mg tablet every Monday pravastatin 40 mg tablet 40 mg PO DAILY lisinopril 5 mg tablet 5 mg PO DAILY omeprazole 20 mg Capsule,Delayed Release(Dr/Ec) 20 mg PO DAILY levothyroxine 200 mcg tablet 200 mcg PO DAILY coQ10 (ubiquinol) 200 mg Capsule 200 mg PO DAILY jckmlolb-dwkt-cwcdu-oreg-capry 100 mg-150 mg- 50 mg-150 mg Capsule 1 cap PO DAILY acetaminophen [Tylenol Arthritis Pain] 650 mg Tablet Extended Release 650 mg PO Q12H PRN (Reason: Pain) Men's One Daily 400-20-300 mcg Tablet 1 tablet PO DAILY fludrocortisone 0.1 mg tablet See Rx Instructions .ROUTE .COMPLEX Qty: 90 3RF Dose Instruction: Take 1 tablet by mouth once daily Rx Instructions: Take 1 tablet by mouth once daily Follow-up/Referrals: Lottie Holt MD [Primary Care Provider] -
--- OUTSIDE RECORDS SUMMARY | 2025-04-01 15:46 | XMS_ITS | Clinical Summary ---
Author Organization [facility] Address [address] [place] [phone] Phone Care Team Providers Care Snow Removal Supervisor Name Role Phone Lottie Holt MD Primary Care Provider [phone] Allergies Active Allergy Reactions Criticality Noted Date [...] Influenza Vaccine (Season Ended) 2025 Insurance MEDICARE [facility] Care Teams Snow Removal Supervisor Relationship Specialty Start Date End Date Lottie Holt MD [address] [place] [address] PCP - General Internal Medicine 03/31/22
--- NOTE | 2025-04-01 16:08 | ECG_ITS ---
Test Date: 2025-04-01 16:21:16 Measurements Intervals [place] Rate: 70 P: 38 AL: 168 QRS: -18 QRSD: 105 T: 51 QT: 379 QTc: 410 Interpretive Statements SINUS RHYTHM POSSIBLE LEFT ATRIAL ENLARGEMENT [-0.1mV P-WAVE IN V1/V2] POSSIBLE LEFT VENTRICULAR HYPERTROPHY [VOLTAGE CRITERIA PLUS LAE OR QRS WIDENING] No previous ECG available for comparison Electronically Signed On 04-02-2025 16:29:07 CDT by Spring Peterson M.D.
[2025-04-01 16:22] LABS: Basophils Absolute Auto 0.08 K/mm3 (0.00-0.10); Basophils Percent Auto 1.1 % (0.0-1.0); Hematocrit 34.8 % (37.0-46.0); Immature Granulocyte Absolute 0.03 K/mm3 (0.00-0.00); Immature Granulocyte Percent A 0.4 % (0.0-0.0); Lymphocytes Absolute Auto 1.21 K/mm3 (1.10-4.50); Lymphocytes Percent Auto 16.2 % (18.0-42.0); Mean Corpuscular HGB Conc 31.6 g/dL (32-36); Mean Corpuscular Hemoglobin 28.8 pg (27.0-31.0); Mean Corpuscular Volume 91.1 fL (78.0-102.0); Mean Platelet Volume 9.4 fl (8.7-11.0); Monocytes Absolute Auto 0.45 K/mm3 (0.10-0.90); Neutrophils Percent Auto 68.3 % (50.0-70.0); Platelet Count Result 275 K/mm3 (150-420); Red Blood Count 3.82 M/mm3 (4.70-6.10); Red Cell Distribution Width 13.8 % (11.6-14.4); White Blood Count 7.5 K/mm3 (4.8-10.8)
[2025-04-01 16:41] LABS: INR 0.9; Partial Thromboplastin Time 24.7 Sec (23.9-30.70); Prothrombin Time 10.5 Seconds (9.50-12.1)
[2025-04-01 16:44] LABS: Alanine Aminotransferase 15 U/L (6-50); Albumin Level 3.4 g/dL (3.5-5.1); Alkaline Phosphatase 53 U/L (38-126); Anion Gap 6 mmol/L (4-12); Aspartate Amino Transferase 24 U/L (17-59); Bilirubin,Total 0.3 mg/dL (0.2-1.3); Blood Urea Nitrogen 37 mg/dL (9-20); Calcium 8.2 mg/dL (8.4-10.2); Carbon Dioxide 19 mmol/L (22-30); Chloride 116 mmol/L (98-107); Estimated CRCL calculation 28 ml/min; Estimated Glomerular Filt Rate 29; Glucose 131 mg/dL (65-110); Osmolality Calculated 302 mOsm/kg (285-295); Potassium 4.6 mmol/L (3.4-5.0); Sodium 141 mmol/L (137-145); Total Protein 6.6 g/dL (6.3-8.2)
--- NOTE | 2025-04-01 21:34 | PC.NURSE ---
ERP aware of pt's vital signs. No new orders at this time.
== END 2025-04-01 21:46 | disposition short-term general hospital (02) ==
PROVIDERS: Emergency Provider Emergency Medicine; PCP Internal Medicine
DX: S72.002A Fracture of unspecified part of neck of left femur, initial encounter for closed fracture (principal); E78.5 Hyperlipidemia, unspecified; E03.9 Hypothyroidism, unspecified; Z79.82 Long term (current) use of aspirin; M06.9 Rheumatoid arthritis, unspecified; I12.9 Hypertensive chronic kidney disease with stage 1 through stage 4 chronic kidney disease, or unspecified chronic kidney disease; N18.9 Chronic kidney disease, unspecified; W11.XXXA Fall on and from ladder, initial encounter; Z87.891 Personal history of nicotine dependence
CPT/HCPCS: 36415; 71045; 73502; 73700; 80053; 85025; 85610; 85730; 93005; 99285

== ENCOUNTER 2025-04-01 22:20 | Inpatient (IN) | payer MEDICARE, SELFPAY ==
--- NOTE | ~2025-04-01 | XR_ITS ---
Left Hip Technique: Portable AP view Clinical History: Status post hip arthroplasty Findings: Patient is status post left hip arthroplasty. Orthopedic hardware alignment appears anatomi c. No hardware complication is evident. Subcutaneous emphysema and swelling is likely postoperative i n nature. Skin faizan are present. No acute osseous fracture is seen. Impression: Status post left hip arthroplasty, without evidence of hardware complication. Reviewed, dictated and finalized at location . Impression: Status post left hip arthroplasty, without evidence of hardware complication.
[2025-04-01 22:17] VITALS: BP 206/94; PULSE 74; RESP 18; TEMP 36.9; O2SAT 97; BMI 25.2
--- OUTSIDE RECORDS SUMMARY | 2025-04-01 22:25 | XMS_ITS | Clinical Summary ---
Author Organization [facility] Address [address] [place] [phone] Phone Care Team Providers Care Air Turning Machine Feeder Name Role Phone Lottie Holt MD Primary Care Provider [phone] Allergies Active Allergy Reactions Criticality Noted Date [...] Influenza Vaccine (Season Ended) 2025 Insurance MEDICARE [facility] Care Teams Air Turning Machine Feeder Relationship Specialty Start Date End Date Lottie Holt MD [address] [place] [address] PCP - General Internal Medicine 03/31/22
[2025-04-01] MEDS: hydrALAZINE HCL 20 MG/ML VIAL 10 MG IV PUSH (22:40)
--- NOTE | 2025-04-01 23:00 | ADMGEN ---
This patient, Shantanu Conrad, was admitted to 2 Medical Room 242-01. Patient/family oriented to hospital policies and general routines including ID bracelet, bed and alarms, visiting hours, pain management, procedures, bathroom and other care routines, personal items, smoking policy, room service/diet, and visiting hours. Information on how to activate the Rapid Response Team has been discussed. Patient/Family are encouraged to report perceived risks to care and to ask questions if they do not understand what they are told or what they should do.
--- NOTE | 2025-04-01 23:25 | PC.NURSE ---
Pt transferred to room 331 for telemetry monitoring, report given to Frankie REARDON. Family at bedside during transfer.
[2025-04-01] MEDS: DEXTROSE 5%/0.45% SOD CHL 1,000 ML 100 ML IV CONT (23:31)
[2025-04-01 23:41] VITALS: BP 164/84; PULSE 71; RESP 16; TEMP 36.6; O2SAT 97
[2025-04-02] VITALS (19 sets, daily range): BP systolic 130–198; BP diastolic 61–106; PULSE 65–94; RESP 14–20; TEMP 36.2–37.1; O2SAT 96–100
[2025-04-02] MEDS: hydrALAZINE HCL 20 MG/ML VIAL 10 MG IV PUSH (06:03)
[2025-04-02] MEDS: LEVOTHYROXINE SODIUM 100 MCG TABLET 200 MCG PO (06:04)
[2025-04-02 06:49] LABS: Hematocrit 36.1 % (42.0-52.0); Hemoglobin 11.5 g/dL (14.0-18.0); Mean Corpuscular HGB Conc 31.9 g/dl (32-36); Mean Corpuscular Hemoglobin 29.1 pg (26-34); Mean Corpuscular Volume 91.4 fl (80-100); Mean Platelet Volume 9.4 fl (7.4-10.4); Platelet Count Result 273 k/mm3 (150-375); Red Blood Count 3.95 M/mm3 (4.6-6.20); Red Cell Distribution Width 13.6 % (11.5-14.5); White Blood Count 5.9 K/mm3 (4.5-10.0)
[2025-04-02 07:00] LABS: Anion Gap 8 mmol/L (4-12); Blood Urea Nitrogen 34 mg/dL (9-20); Calcium 8.4 mg/dL (8.4-10.2); Carbon Dioxide 19 mmol/L (22-30); Chloride 112 mmol/L (98-107); Estimated CRCL calculation 34 ml/min; Estimated Glomerular Filt Rate 36; Glucose 109 mg/dL (65-110); Potassium 4.5 mmol/L (3.4-5.0); Sodium 139 mmol/L (137-145)
--- NOTE | 2025-04-02 08:34 | P.HP_ITS ---
H&P: HPI History of Present Illness Date/Time: 04/02/25 08:34 Chief Complaint: Fall Narrative: Patient is a 79-year-old male past history hypertension, hyperlipidemia, hypothyroidism who presented the ED with complaints. Patient stated that on Monday he does claim that ladders and line was going down the ladder lost his balance and plan on the left side of his body. He stated that he went to bed and thought that it would be better in the morning. So he laid down and when he woke up in the morning was any better. He started having some pretty good hip pain since beginning check out. He denies any current chest pain, shortness a breath, nausea, vomiting, diarrhea constipation. Patient stated that he has been in his normal health since in before the fall. In the ED was blood cell count was 5.9 with a hemoglobin hematocrit 11.5/36.1. Sodium was 139 with potassium of 4.5. BUN was 34 with a creatinine of 1.84. Baseline appears to be about 1.82. Glucose was 109. EKG was stable with no ectopy shows is sinus rhythm. CT of the hip showed left for femoral neck fracture. Chest x-ray showed left pleural effusion small without infiltrate. Hip and pelvis x-ray showed left femoral neck fracture. Orthopedic surgery has been consulted. Patient has been NPO and on IV fluids in anticipation for surgical intervention. Will await further recommendations from Orthopedic surgery at this time. [facility] Past Medical History Medical History Renal failure, chronic Renal mass AAA (abdominal aortic aneurysm) Hypothyroidism Rheumatoid arteritis HTN (hypertension) HLD (hyperlipidemia) Surgical History Surgical History History of prostatectomy History of appendectomy Social History Social History (Updated 04/02/25 @ 14:37 by HODA Horne) Social History: Code status is a full code patient would like his surrogate to be painful his . Smoking status: Former smoker Tobacco type: pipe Second hand tobacco smoke exposure: No Smoking end date: 11/06/07 Additional smoking assessment comments: SMOKED A PIPE DAILY. QUIT 2007 Alcohol intake: never Alcohol use details: Occasionally Substance use: never Substance use type: does not use Do You Feel Safe in your Home?: Yes Lack of Transportation: No Lack of Food: Never True Current Housing: I Have Housing Concerned About Future Housing: No Difficulty Paying Gas/Electric Bills: No Difficulty Paying for Meds: No Currently Unemployed: No Education: Trade/Vocational Certificate Difficulty w/ Childcare or Family Care: No Living arrangements: with family Gender identity (if verbalized by the patient): Male Spiritual care concerns: No Agree to blood products: Yes Meds Home Medications and Allergies Home Medications ?Medication ?Instructions ?Recorded ?Confirmed ?Type folic acid 1 mg tablet 1 mg PO DAILY 12/10/19 04/01/25 History coQ10 (ubiquinol) 200 mg capsule 200 mg PO DAILY 01/03/22 04/01/25 History levothyroxine 200 mcg tablet 200 mcg PO DAILY 01/03/22 04/01/25 History omeprazole 20 mg capsule,delayed 20 mg PO DAILY 01/03/22 04/01/25 History release turmeric 100 mg-miladys 150 1 cap PO DAILY 01/03/22 04/01/25 History mg-olive 50 mg-oreg 150 mg-capryl capsule acetaminophen 650 mg 650 mg PO Q12H PRN Pain 03/23/22 04/01/25 History tablet,extended release (Tylenol Arthritis Pain) hdnslbsv-cctfbldi-tmmxe acid 400 1 tablet PO DAILY 03/23/22 04/01/25 History mcg-vit K 20 mcg-lycop 300 mcg tablet (Men's One Daily) aspirin 81 mg tablet,delayed 81 mg PO DAILY 11/15/22 04/01/25 History release methotrexate sodium 2.5 mg tablet 2.5 mg PO WEEKLY 06/05/23 04/01/25 History fludrocortisone 0.1 mg tablet See Rx Instructions .Route 11/04/24 04/01/25 Rx .COMPLEX #90 tabs lisinopril 5 mg tablet 5 mg PO DAILY 11/25/24 04/01/25 History pravastatin 40 mg tablet 40 mg PO DAILY 11/25/24 04/01/25 History omeprazole 10 mg capsule,delayed 10 mg PO DAILY 04/01/25 04/01/25 History release Allergies Allergy/AdvReac Type Severity Reaction Status Date / Time coconut Allergy Swelling Verified 04/01/25 15:26 of Lip/Tongue/Throat Vital Signs Vital Signs - 24 hr 04/01/25 22:17 04/01/25 22:33 04/01/25 23:41 Temperature 98.5 F 97.9 F Pulse Rate 74 71 Respiratory Rate 18 16 Blood Pressure 206/94 H 164/84 H Pulse Oximetry 97 97 Oxygen Delivery Room Air 04/02/25 03:10 04/02/25 04:33 04/02/25 06:48 Temperature 98.8 F Pulse Rate 80 65 Respiratory Rate 16 Blood Pressure 182/86 H 165/61 H Pulse Oximetry 99 Oxygen Delivery 04/02/25 08:00 Temperature 97.8 F Pulse Rate 86 Respiratory Rate 18 Blood Pressure 153/70 H Pulse Oximetry 97 Oxygen Delivery Exam Narrative: General: well-nourished, well-appearing 79-year-old female, sitting up in bed, comfortable, NARD Neuro: awake, alert and oriented x4, speech clear, no focal neuro deficits noted HEENMT: normocephalic, atraumatic, EOMI, sclerae anicteric, moist oral mucosa Respiratory: Clear to auscultation bilaterally without crackles, rhonchi or wheezes, nonlabored breathing Cardio: regular rate, regular rhythm with S1-S2 Abdomen: nondistended, normoactive bowel sounds, soft, nontender to palpation Extremities: no edema, erythema, or tenderness to palpation, DP pulses 2+ bilaterally Skin: no rashes or lesions, warm and dry Psych: appropriate mood and affect, judgment and insight intact H&P: Results Labs Labs: Short CBC 04/02/25 Range/Units 06:09 WBC 5.9 (4.5-10.0) K/mm3 Hgb 11.5 L (14.0-18.0) g/dL Hct 36.1 L (42.0-52.0) % Plt Count 273 (150-375) k/mm3 [facility] 04/02/25 06:09 Sodium 139 Potassium 4.5 Chloride 112 H Carbon Dioxide 19 L BUN 34 H Creatinine 1.84 H Glucose 109 Calcium 8.4 Assessment and Plan Assessment and plan (1) HTN (hypertension): Code(s): I10 - Essential (primary) hypertension Status: Acute Assessment and Plan: * Current BP 153/70 * Continue Home lisinopril increased to 10 mg daily * One 5 mg lisinopril given now * Trend Blood pressure * Adjust therapy as indicated (2) HLD (hyperlipidemia): Code(s): E78.5 - Hyperlipidemia, unspecified Status: Acute Assessment and Plan: * Continue pravastatin will (3) Chronic kidney disease, stage 3b: Code(s): N18.32 - Chronic kidney disease, stage 3b Status: Acute Assessment and Plan: * Patient presents with a creatinine 1.84 * Baseline creatinine about 1.8 to 2.0 * Avoid nephrotoxic Medications * trend labs * Is show renal adjust medications as Appropriate+ * Consider Nephrology if continues to worsen. 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 Quality VTE Prophylaxis VTE prophylaxis: mechanical ordered Hospitalist MIPS Advance Care Plan I have confirmed that the patient's Advanced Care Plan is present, code status is documented, or surrogate decision maker is listed in patient medical record.: Yes Medication Reconciliation I have utilized all available resources to obtain, update and review the patients current medications (includes all prescriptions, OTC, herbals, cannabis, and nutritional supplements).: Yes The patient is not eligible for med reconciliation; the patient is in a emergent medical situation where delaying treatment would jeopardize the patients health.: No
[2025-04-02] MEDS: FOLIC ACID 1 MG TABLET PO (08:37)
[2025-04-02] MEDS: PRAVASTATIN SODIUM 20 MG TABLET 40 MG PO (08:37)
[2025-04-02] MEDS: DOCUSATE SODIUM 100 MG CAPSULE PO (08:37)
[2025-04-02] MEDS: THERAPEUTIC MULTIVITAMINS/MINERALS TAB (*BKC) 1 TABLET PO (08:37)
[2025-04-02] MEDS: PANTOPRAZOLE 40 MG TABLET PO (08:37)
[2025-04-02] MEDS: lisinopriL 5 MG TABLET PO ×2 (08:38→14:54)
[2025-04-02] MEDS: FLUDROCORTISONE ACETATE 0.1 MG TABLET PO (08:38)
--- OUTSIDE RECORDS SUMMARY | 2025-04-02 08:54 | XMS_ITS | Clinical Summary ---
Author Organization [facility] Address [address] [place] [id number] Phone Care Team Providers Care Associate Automation Engineer Name Role Phone Lottie Holt MD Primary Care Provider [phone] Allergies Active Allergy Reactions Criticality Noted Date [...] Influenza Vaccine (Season Ended) 2025 Insurance MEDICARE [employer] Care Teams Associate Automation Engineer Relationship Specialty Start Date End Date Lottie Holt MD [address] [place] [id number] PCP - General Internal Medicine 03/31/22
--- NOTE | 2025-04-02 17:48 | P.PNAN_ITS ---
Anes - Initial Pre Proc Eval Procedure: Operation Date: 04/02/25 17:00 Proposed Procedures p Left Bipolar Hip Replacement - Uriel Ying MD Date/Time: 04/02/25 17:48 Surgeon: Edgardo Ni MD Pre Op Diagnosis: Hip fracture Patient Data Age: 79 Gender: M Height: 1.83 m Weight: 84.4 kg Last Vital Signs Temp 36.2 C L 04/02/25 16:45 Pulse 87 04/02/25 16:45 Resp 20 04/02/25 16:45 BP 195/84 H 04/02/25 16:45 Pulse Ox 97 04/02/25 16:45 O2 Del Method Room Air 04/02/25 16:45 Allergies Allergy/AdvReac Type Severity Reaction Status Date / Time coconut Allergy Swelling Verified 04/01/25 15:26 of Lip/Tongue/Throat Home Medications ?Medication ?Instructions ?Recorded ?Confirmed ?Type folic acid 1 mg tablet 1 mg PO DAILY 12/10/19 04/01/25 History coQ10 (ubiquinol) 200 mg capsule 200 mg PO DAILY 01/03/22 04/01/25 History levothyroxine 200 mcg tablet 200 mcg PO DAILY 01/03/22 04/01/25 History omeprazole 20 mg capsule,delayed 20 mg PO DAILY 01/03/22 04/01/25 History release turmeric 100 mg-miladys 150 1 cap PO DAILY 01/03/22 04/01/25 History mg-olive 50 mg-oreg 150 mg-capryl capsule acetaminophen 650 mg 650 mg PO Q12H PRN Pain 03/23/22 04/01/25 History tablet,extended release (Tylenol Arthritis Pain) fcpahher-rqcrbwcl-hozgi acid 400 1 tablet PO DAILY 03/23/22 04/01/25 History mcg-vit K 20 mcg-lycop 300 mcg tablet (Men's One Daily) aspirin 81 mg tablet,delayed 81 mg PO DAILY 11/15/22 04/01/25 History release methotrexate sodium 2.5 mg tablet 2.5 mg PO WEEKLY 06/05/23 04/01/25 History fludrocortisone 0.1 mg tablet See Rx Instructions .Route 11/04/24 04/01/25 Rx .COMPLEX #90 tabs lisinopril 5 mg tablet 5 mg PO DAILY 11/25/24 04/01/25 History pravastatin 40 mg tablet 40 mg PO DAILY 11/25/24 04/01/25 History omeprazole 10 mg capsule,delayed 10 mg PO DAILY 04/01/25 04/01/25 History release Laboratory Tests 04/02/25 06:09 WBC 5.9 K/mm3 (4.5-10.0) RBC 3.95 L M/mm3 (4.6-6.20) Hgb 11.5 L g/dL (14.0-18.0) Hct 36.1 L % (42.0-52.0) MCV 91.4 fl (80-100) MCH 29.1 pg (26-34) MCHC 31.9 L g/dl (32-36) RDW 13.6 % (11.5-14.5) Plt Count 273 k/mm3 (150-375) MPV 9.4 fl (7.4-10.4) Sodium 139 mmol/L (137-145) Potassium 4.5 mmol/L (3.4-5.0) Chloride 112 H mmol/L (98-107) Carbon Dioxide 19 L mmol/L (22-30) Anion Gap 8 mmol/L (4-12) BUN 34 H mg/dL (9-20) Creatinine 1.84 H mg/dL (0.7-1.3) Estim Creat Clear Calc 34 ml/min Estimated GFR 36 L (59 - ) Glucose 109 mg/dL (65-110) Calcium 8.4 mg/dL (8.4-10.2) Patient hx anesthesia problems: none Family hx anesthesia problems: none Results Review: All pre-operative results and documents have been reviewed as part of the pre- operative evaluation. [facility] Past Medical History Medical History Renal failure, chronic Renal mass AAA (abdominal aortic aneurysm) Hypothyroidism Rheumatoid arteritis HTN (hypertension) HLD (hyperlipidemia) Surgical History Surgical History History of prostatectomy History of appendectomy Social History Social History Social History: Code status is a full code patient would like his surrogate to be painful his . Smoking status: Former smoker Tobacco type: pipe Second hand tobacco smoke exposure: No Smoking end date: 11/06/07 Additional smoking assessment comments: SMOKED A PIPE DAILY. QUIT 2007 Alcohol intake: never Alcohol use details: Occasionally Substance use: never Substance use type: does not use Do You Feel Safe in your Home?: Yes Lack of Transportation: No Lack of Food: Never True Current Housing: I Have Housing Concerned About Future Housing: No Difficulty Paying Gas/Electric Bills: No Difficulty Paying for Meds: No Currently Unemployed: No Education: Trade/Vocational Certificate Difficulty w/ Childcare or Family Care: No Living arrangements: with family Gender identity (if verbalized by the patient): Male Spiritual care concerns: No Agree to blood products: Yes Anes - Eval Final PreProcedure Day of Procedure 04/02/25 17:48 Patient weight: normal Heart: regular rate and rhythm Lungs: clear to auscultation Airway: Mallampati scale class II Neurological: alert and oriented Last oral intake: >/= 8 hours ASA classification: III Emergent: no Anesthetic plan: proceed Anesthesia type and monitoring: general LMA and standard monitoring Results Review: All pre-operative results and documents have been reviewed as part of the pre- operative evaluation. Informed Consent: The patient's anesthetic plan and its attendant risks and benefits were d iscussed with the patient/family/POA. Questions were solicited and answers provided to the satisfaction of the patient/family/POA.
--- NOTE | 2025-04-02 17:52 | P.CONOP_ITS ---
Assessment and Plan Assessment and plan (1) Fracture of femoral neck, left: Code(s): S72.002A - Fracture of unspecified part of neck of left femur, initial encounter for closed fracture Status: Acute Plan The patient is a 79-year-old male who presented to the [facility] Emergency Room yesterday with a basicervical femoral neck fracture that he sustained on Monday last week after trying to clean his gutters and falling off the last 2 rungs of the ladder being that the ladder slipped out from underneath him he landed onto his left hip and had significant pain at the time but it improved over the weekend. He reluctantly standard Hohmann and did not go to the hospital secondary to the holiday weekend and hope that it would get better. He did not get any better so he showed up at the emergency room which time he was diagnosed with a femoral neck fracture and then I was consulted for orthopedic care and accepted him in transfer to be admitted to the hospitalist service in [facility]. The patient reports pain nowhere else except into the left hip and only minimal pain in that at all. He reports no other injuries. After discussion with the patient and his Shirin by the bedside today the understand the treatment plan which would be for a left hip hemiarthroplasty. The only other option would be for potential for open reduction internal fixation with about a 30% chance of failure which will not be known until about 6 weeks after the fixation procedure. The patient and his tell me that they have a very busy schedule and of utmost importance to them is the summer which they will be traveling with her 17-year-old daughter who is a team select milieu counselor who is a pitcher traveling this summer and Has been following their 17-year-old granddaughter for many years. He would like to continue doing that their penitentiary for the rest of this year. Time is of the essence with regards to predictability of his recovery and therefore today both decided they would prefer to go with the hemiarthroplasty given the fact that it is more predictable. The risks benefits alternatives and complications were discussed with Shirin and her Nilson include but not limited to infection Nerve or blood vessel injury blood vessel injury resulting in a footdrop as well as limb length discrepancy and dislocation and DVT. They understand this and are willing to proceed. History of Present Illness HPI Consult date: 04/02/25 Requesting physician: Desi Cordoba MD Chief complaint: Hip fracture Left Femoral Neck Narrative: The patient is a 79-year-old male who presented to the [facility] Emergency Room yesterday with a basicervical femoral neck fracture that he sustained on Monday last week after trying to clean his gutters and falling off the last 2 rungs of the ladder being that the ladder slipped out from underneath him he landed onto his left hip and had significant pain at the time but it improved over the weekend. He reluctantly standard Hohmann and did not go to the hospital secondary to the holiday weekend and hope that it would get better. He did not get any better so he showed up at the emergency room which time he was diagnosed with a femoral neck fracture and then I was consulted for orthopedic care and accepted him in transfer to be admitted to the hospitalist service in [facility]. The patient reports pain nowhere else except into the left hip and only minimal pain in that at all. He reports no other injuries. [facility] Past Medical History Medical History Renal failure, chronic Renal mass AAA (abdominal aortic aneurysm) Hypothyroidism Rheumatoid arteritis HTN (hypertension) HLD (hyperlipidemia) Surgical History Surgical History History of prostatectomy History of appendectomy Social History Social History Social History: Code status is a full code patient would like his surrogate to be painful his . Smoking status: Former smoker Tobacco type: pipe Second hand tobacco smoke exposure: No Smoking end date: 11/06/07 Additional smoking assessment comments: SMOKED A PIPE DAILY. QUIT 2007 Alcohol intake: never Alcohol use details: Occasionally Substance use: never Substance use type: does not use Do You Feel Safe in your Home?: Yes Lack of Transportation: No Lack of Food: Never True Current Housing: I Have Housing Concerned About Future Housing: No Difficulty Paying Gas/Electric Bills: No Difficulty Paying for Meds: No Currently Unemployed: No Education: Trade/Vocational Certificate Difficulty w/ Childcare or Family Care: No Living arrangements: with family Gender identity (if verbalized by the patient): Male Spiritual care concerns: No Agree to blood products: Yes Meds Home Medications and Allergies Home Medications ?Medication ?Instructions ?Recorded ?Confirmed ?Type folic acid 1 mg tablet 1 mg PO DAILY 12/10/19 04/01/25 History coQ10 (ubiquinol) 200 mg capsule 200 mg PO DAILY 01/03/22 04/01/25 History levothyroxine 200 mcg tablet 200 mcg PO DAILY 01/03/22 04/01/25 History omeprazole 20 mg capsule,delayed 20 mg PO DAILY 01/03/22 04/01/25 History release turmeric 100 mg-miladys 150 1 cap PO DAILY 01/03/22 04/01/25 History mg-olive 50 mg-oreg 150 mg-capryl capsule acetaminophen 650 mg 650 mg PO Q12H PRN Pain 03/23/22 04/01/25 History tablet,extended release (Tylenol Arthritis Pain) gdwapqoi-yuqwkusy-arrij acid 400 1 tablet PO DAILY 03/23/22 04/01/25 History mcg-vit K 20 mcg-lycop 300 mcg tablet (Men's One Daily) aspirin 81 mg tablet,delayed 81 mg PO DAILY 11/15/22 04/01/25 History release methotrexate sodium 2.5 mg tablet 2.5 mg PO WEEKLY 06/05/23 04/01/25 History fludrocortisone 0.1 mg tablet See Rx Instructions .Route 11/04/24 04/01/25 Rx .COMPLEX #90 tabs lisinopril 5 mg tablet 5 mg PO DAILY 11/25/24 04/01/25 History pravastatin 40 mg tablet 40 mg PO DAILY 11/25/24 04/01/25 History omeprazole 10 mg capsule,delayed 10 mg PO DAILY 04/01/25 04/01/25 History release Allergies Allergy/AdvReac Type Severity Reaction Status Date / Time coconut Allergy Swelling Verified 04/01/25 15:26 of Lip/Tongue/Throat Vital Signs Vital Signs - 24 hr 04/01/25 22:17 04/01/25 22:33 04/01/25 23:41 Temperature 36.9 C 36.6 C Pulse Rate 74 71 Respiratory Rate 18 16 Blood Pressure 206/94 H 164/84 H Pulse Oximetry 97 97 Oxygen Delivery Room Air 04/02/25 03:10 04/02/25 04:33 04/02/25 06:48 Temperature 37.1 C Pulse Rate 80 65 Respiratory Rate 16 Blood Pressure 182/86 H 165/61 H Pulse Oximetry 99 Oxygen Delivery 04/02/25 08:00 04/02/25 08:00 04/02/25 08:33 Temperature 36.6 C Pulse Rate 86 90 Respiratory Rate 18 Blood Pressure 153/70 H Pulse Oximetry 97 Oxygen Delivery Room Air 04/02/25 12:00 04/02/25 16:00 04/02/25 16:45 Temperature 37.1 C 37.1 C 36.2 C L Pulse Rate 92 87 87 Respiratory Rate 18 18 20 Blood Pressure 155/82 H 170/83 H 195/84 H Pulse Oximetry 98 96 97 Oxygen Delivery Room Air Exam 2 Narrative: The patient is a well-developed well-nourished male alert and oriented to person place and time. Exam of the patient's bilateral lower extremity shows no swelling tenderness or deformity at the knees or the ankles. He has a moderate amount of groin pain with a log rolling of his left lower extremity in the right lower extremity he has no pain with range of motion of his right lower extremity at the hip or the knee. He has good posterior tibial pulse and good sensation to left lower extremity. He has good dorsiflexion of the ankle. Results Labs 04/02/25 06:09 04/02/25 06:09 Labs: Abnormal lab results 04/02/25 Range/Units 06:09 RBC 3.95 L (4.6-6.20) M/mm3 Hgb 11.5 L (14.0-18.0) g/dL Hct 36.1 L (42.0-52.0) % MCHC 31.9 L (32-36) g/dl Chloride 112 H (98-107) mmol/L Carbon Dioxide 19 L (22-30) mmol/L BUN 34 H (9-20) mg/dL Creatinine 1.84 H (0.7-1.3) mg/dL Estimated GFR 36 L (59 - ) H & H 04/02/25 Range/Units 06:09 Hgb 11.5 L (14.0-18.0) g/dL Hct 36.1 L (42.0-52.0) % All other labs normal.
--- NOTE | 2025-04-02 17:59 | P.HPUP_ITS ---
History and Physical Update Update Date/Time: 04/02/25 17:59 History and Physical has been reviewed, including an updated exam of the patient. There are NO changes in the patient's condition. Risks, benefits, and alternatives have been discussed and questions answered. Patient agrees to proceed with procedure. The patient is a 79-year-old male who presented to the [facility] Emergency Room yesterday with a basicervical femoral neck fracture that he sust ained on Monday last week after trying to clean his gutters and falling off the last 2 rungs of the ladder being that the ladder slipped out from underneath him he landed onto his left hip and had significant pain at the time but it improved over the weekend. He reluctantly standard Hohmann and did not go to the hospital secondary to the holiday weekend and hope that it would get better. He did not get any better so he showed up at the emergency room which time he was diagnosed with a femoral neck fracture and then I was consulted for orthopedic care and accepted him in transfer to be admitted to the hospitalist service in [facility]. The patient reports pain nowhere else except into the left hip and only minimal pain in that at all. He reports no other injuries. After discussion with the patient and his Shirin by the bedside today the understand the treatment plan which would be for a left hip hemiarthroplasty. The only other option would be for potential for open reduction internal fixation with about a 30% chance of failure which will not be known until about 6 weeks after the fixation procedure. The patient and his tell me that they have a very busy schedule and of utmost importance to them is the summer which they will be traveling with her 17-year-old daughter who is a team select sales support advisor who is a pitcher traveling this summer and Has been following their 17-year-old granddaughter for many years. He would like to continue doing that their shelter for the rest of this year. Time is of the essence with regards to predictability of his recovery and therefore today both decided they would prefer to go with the hemiarthroplasty given the fact that it is more predictable. The risks benefits alternatives and complications were discussed with Shirin and her Nilson include but not limited to infection Nerve or blood vessel injury blood vessel injury resulting in a footdrop as well as limb length discrepancy and dislocation and DVT. They understand this and are willing to proceed.
[2025-04-02] MEDS: LACTATED RINGERS 1,000 ML 30 ML IV CONT ×2 (18:00→20:27)
[2025-04-02] MEDS: ceFAZolin 2 GM/D5W 50 ML 2 GM/50 ML BAG IVPB (18:11)
[2025-04-02] MEDS: ceFAZolin SODIUM 1 GM VIAL (18:56)
[2025-04-02] MEDS: LIDO 1%/EPINEPHRINE 1:100,000 20 ML VIAL 30 ML INFILTRATE (18:58)
[2025-04-02] MEDS: fentaNYL CITRATE INJ (*CRX) 100 MCG/2 ML VIAL 25 MCG IV PUSH ×4 (20:51→21:12)
--- NOTE | 2025-04-02 20:51 | P.OP_ITS ---
Procedure Note - Detailed Date of Procedure 04/02/25 Pre-op Diagnosis Hip fracture Left Femoral Neck Post-op Diagnosis Same Procedure Performed Left Hip José-arthroplasty with calcar cable fixation Surgeon Uriel Ying MD Anesthesia General Indications Unstable Left Hip Femoral Neck fracture Findings Left Hip femoral neck fracture with extension into the calcar and involving the posterior calcar. Description of Procedure After obtaining consent with regard to the risks benefits alternatives and complications of a left hip hemiarthroplasty, discussing it with the patient and his , the correct site of surgery was marked prior to bringing the patient into the operating while in the holding area which was the left hip. The patient was then brought to the operating placed in supine position which ti me he underwent general anesthesia. Patient was then placed in lateral decubitus position with the left side up with all bony prominences padded including the area over the peroneal nerve was padded with a gel pad. The left hip was then draped in standard sterile fashion. A time-out was performed in order to verify correct patient correct site of surgery correct procedure and to verify the patient and deep received 2 g of Ancef IV within 1 hour of the incision time. A posterolateral approach was made to the patient's left hip. Dissection was carried down to the ITB band was easily identified and sharply incised. A Charnley retractor was then placed. It is I then identified the piriformis tagged piriformis and dissected this off the superior capsule. After this was done at the T capsulotomy and exposed the fracture. It was evident that this was a vertical fracture and indeed there was moderate displacement which I could easily see. After this was done I did a femoral neck cut maintaining as much of the calcar that could maintain which was the Iza 1 cm of calcar. After the femoral neck cut I then proceeded to lateralize the starting point with a box osteotome and a canal finer. I then proceeded to broach the femur making sure to obtain at least 45? of anteversion which was the patient up to a size 7. At after this was done I then trialed. I noted that with a 0 neck length he had equal limb lengths and excellent stability with hip flexion to 90? and internal rotation to 80? with no evidence of subluxation of the prosthesis. After preparing the proximal femur I noted that he had AV type defect over the medial aspect of the calcar but more importantly he had a fracture that was present. Prior to broaching that was a very small hairline fracture extending into the area of the lesser trochanter that was barely visible. However I can not see this by direct visual visualization. This corresponded very well to what was seen on the CT scan over the posterior cortex. It was at this time that I determined that a cable fixation using a dome our cable would be appropriate to ensure the patient would not have propagation of this fracture. Again this fracture was noted preoperatively on the CT scan. Dall Miles Cable was secured. Nicely and tightened after this was done and the hip was then reduced and trialed and it was noted that he had excellent stability again. I then placed the actual implant which was a size 7 Harwood noncemented stem with a collar insignia stem standard offset size 38 mm the neck length a stem length of 109mm standard offset a bipolar with a 28 head 0 neck length. The patient declines and legs at the end of the procedure. I then irrigated copiously with pulsatile lavage and then I repaired the short external rotators to the posterior aspect of the patient's hips using 2 drill holes. I then proceeded to repair the ITB band using interrupted [id number] sutures at the. I then closed the skin using 2-0 Vicryl sutures in the dermal layer faizan in the skin. The patient was then transferred to the recovery room in stable condition. Patient will be anticoagulated for DVT prophylaxis with 81 mg of aspirin twice a day he will observe posterior hip precautions. Implants Harwood, Insignia Hip Stem size 7 Non-cemented with collar Standard Offset with Dall Miles Cables. Estimated Blood Loss 400 Urine Output 600 Drains No Packing No Pathology Yes Complications No immediate complications Condition Stable Disposition PACU
[2025-04-02] MEDS: LABETALOL HCL INJ 100 MG/20 ML VIAL IV PUSH (21:13)
[2025-04-02] MEDS: ASPIRIN 81 MG ENTERIC TABLET PO (22:21)
[2025-04-02] MEDS: SODIUM CHLORIDE 0.9% IV 1,000 ML 125 ML IV CONT (22:22)
[2025-04-02] MEDS: oxyCODONE HCL (*CRX) 5 MG TAB IR PO (23:09)
[2025-04-02] MEDS: ACETAMINOPHEN 325 MG TABLET 650 MG PO (23:09)
[2025-04-03] MEDS: ceFAZolin 2 GM/D5W 50 ML 2 GM/50 ML BAG IVPB ×3 (01:50→17:02)
[2025-04-03] MEDS: HYDROmorphone HCL INJ (*CRX) 2 MG/ML VIAL 1 MG IV PUSH (01:50)
[2025-04-03 04:31] VITALS: BP 162/71; PULSE 78; RESP 18; TEMP 36.3; O2SAT 99
[2025-04-03] MEDS: ACETAMINOPHEN 325 MG TABLET 650 MG PO ×3 (06:21→17:02)
[2025-04-03] MEDS: LEVOTHYROXINE SODIUM 100 MCG TABLET 200 MCG PO (06:21)
[2025-04-03 06:50] LABS: Basophils Percent Auto 0.5 % (0.2-1.2); Hematocrit 33.2 % (42.0-52.0); Hemoglobin 10.4 g/dL (14.0-18.0); Immature Granulocyte Absolute 0.02 K/mm3 (0.00-0.031); Immature Granulocyte Percent A 0.2 % (0-0.5); Lymphocytes Absolute Auto 0.66 K/mm3 (0.9-3.2); Lymphocytes Percent Auto 7.7 % (18.3-44.2); Mean Corpuscular HGB Conc 31.3 g/dl (32-36); Mean Corpuscular Volume 92.5 fl (80-100); Mean Platelet Volume 9.5 fl (7.4-10.4); Monocytes Absolute Auto 0.7 K/mm3 (0.1-0.6); Monocytes Percent Auto 7.6 % (2.6-8.5); Neutrophils Absolute Auto 7.2 K/mm3 (1.3-6.7); Platelet Count Result 263 k/mm3 (150-375); Red Blood Count 3.59 M/mm3 (4.6-6.20); Red Cell Distribution Width 13.5 % (11.5-14.5); White Blood Count 8.6 K/mm3 (4.5-10.0)
[2025-04-03 07:03] LABS: Alanine Aminotransferase 16 U/L (6-50); Albumin Level 3.2 g/dL (3.5-5.1); Alkaline Phosphatase 48 U/L (38-126); Anion Gap 9 mmol/L (4-12); Aspartate Amino Transferase 32 U/L (17-59); Bilirubin,Total 0.3 mg/dL (0.2-1.3); Blood Urea Nitrogen 36 mg/dL (9-20); Calcium 8.2 mg/dL (8.4-10.2); Carbon Dioxide 20 mmol/L (22-30); Chloride 110 mmol/L (98-107); Estimated CRCL calculation 33 ml/min; Estimated Glomerular Filt Rate 35; Glucose 125 mg/dL (65-110); Magnesium 2.1 mg/dL (1.6-2.3); Potassium 5.3 mmol/L (3.4-5.0); Sodium 139 mmol/L (137-145)
[2025-04-03] MEDS: PRAVASTATIN SODIUM 20 MG TABLET 40 MG PO (09:05)
[2025-04-03] MEDS: PANTOPRAZOLE 40 MG TABLET PO (09:06)
[2025-04-03] MEDS: THERAPEUTIC MULTIVITAMINS/MINERALS TAB (*BKC) 1 TABLET PO (09:06)
[2025-04-03] MEDS: FOLIC ACID 1 MG TABLET PO (09:06)
[2025-04-03] MEDS: FLUDROCORTISONE ACETATE 0.1 MG TABLET PO (09:06)
[2025-04-03] MEDS: ASPIRIN 81 MG ENTERIC TABLET PO (09:06)
--- NOTE | 2025-04-03 12:53 | P.DS_ITS ---
DS: Admitting Diagnosis Discharge Date 04/03/2025 Admitting Diagnosis Left femoral neck fracture DS: Discharge Diagnosis Discharge Diagnosis (1) HTN (hypertension): Code(s): I10 - Essential (primary) hypertension Status: Acute Assessment and Plan: * Current BP 153/70 * Continue Home lisinopril increased to 10 mg daily * One 5 mg lisinopril given now * Trend Blood pressure * Adjust therapy as indicated (2) HLD (hyperlipidemia): Code(s): E78.5 - Hyperlipidemia, unspecified Status: Acute Assessment and Plan: * Continue pravastatin will (3) Chronic kidney disease, stage 3b: Code(s): N18.32 - Chronic kidney disease, stage 3b Status: Acute Assessment and Plan: * Patient presents with a creatinine 1.84 * Baseline creatinine about 1.8 to 2.0 * Avoid nephrotoxic Medications * trend labs * Is show renal adjust medications as Appropriate+ * Consider Nephrology if continues to worsen. 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 DS: Summary Hospital Course Reason for hospitalization: Patient is a 79-year-old male past history hypertension, hyperlipidemia, hypothyroidism who presented the ED with complaints. Patient stated that on Monday he does claim that ladders and line was going down the ladder lost his balance and plan on the left side of his body. He stated that he went to bed and thought that it would be better in the morning. So he laid down and when he woke up in the morning was any better. He started having some pretty good hip pain since beginning check out. He denies any current chest pain, shortness a breath, nausea, vomiting, diarrhea constipation. Patient stated that he has been in his normal health since in before the fall. In the ED was blood cell count was 5.9 with a hemoglobin hematocrit 11.5/36.1. Sodium was 139 with potassium of 4.5. BUN was 34 with a creatinine of 1.84. Baseline appears to be about 1.82. Glucose was 109. EKG was stable with no ectopy shows is sinus rhythm. CT of the hip showed left for femoral neck fracture. Chest x-ray showed left pleural effusion small without infiltrate. Hip and pelvis x-ray showed left femoral neck fracture. Orthopedic surgery has been consulted. Patient has been NPO and on IV fluids in anticipation for surgical intervention. Will await further recommendations from Orthopedic surgery at this time. Hospital Course: patient underwent left hip hemiarthroplasty with calcar cable fixation. Currently patient is doing well. Patient denies any current chest pain, shortness a breath, nausea, vomiting, diarrhea constipation. Patient states that he is feeling a lot better. PT and OT did work with patient states that that he is stable for discharge. Labs and vital signs also remained stable. White count 8.4, hemoglobin hematocrit 14.4/38.2. BUN creatinine 36/1.89. Patient at this time is stable for discharge for labs and vital signs. Patient will follow-up with primary care provider and the surgeon as instructed. Status at Discharge Functional status at discharge: uses cane/walker Overall status at discharge: patient is progressing back to baseline Time Spent with Patient Time attestation: Total time spent providing and/or coordinating discharge services: 48 minutes Time spent: Greater than 30 minutes Specific discharge activities: Diagnostic testing, chart review, developing a treatment plan, education, care coordination documentation, physical exam, result review Exam Narrative: General: well-nourished, well-appearing 79-year-old female, sitting up in bed, comfortable, NARD Neuro: awake, alert and oriented x4, speech clear, no focal neuro deficits noted HEENMT: normocephalic, atraumatic, EOMI, sclerae anicteric, moist oral mucosa Respiratory: Clear to auscultation bilaterally without crackles, rhonchi or wheezes, nonlabored breathing Cardio: regular rate, regular rhythm with S1-S2 Abdomen: nondistended, normoactive bowel sounds, soft, nontender to palpation Extremities: Skin: no rashes or lesions, warm and dry Psych: appropriate mood and affect, judgment and insight intact DS: Data Data Completed and Pending Labs on day of discharge: Labs from last 24 hours 04/03/25 04/02/25 06:26 19:07 WBC 8.6 RBC 3.59 L Hgb 10.4 L Hct 33.2 L MCV 92.5 MCH 29.0 MCHC 31.3 L RDW 13.5 Plt Count 263 MPV 9.5 Immature Gran % (Auto) 0.2 Neut % (Auto) 84.0 H Lymph % (Auto) 7.7 L Hand % (Auto) 7.6 Eos % (Auto) 0.0 Baso % (Auto) 0.5 Lymph # (Auto) 0.66 L Hand # (Auto) 0.7 H Eos # (Auto) 0.0 Baso # (Auto) 0.0 Abs Immat Gran (auto) 0.02 Absolute Neuts (auto) 7.2 H Absolute Nucleated RBC 0.000 Nucleated RBC % 0.0 Sodium 139 Potassium 5.3 H Chloride 110 H Carbon Dioxide 20 L Anion Gap 9 BUN 36 H Creatinine 1.89 H Estim Creat Clear Calc 33 Estimated GFR 35 L Glucose 125 H Calcium 8.2 L Magnesium 2.1 Total Bilirubin 0.3 AST 32 ALT 16 Alkaline Phosphatase 48 Total Protein 6.0 L Albumin 3.2 L Blood Type A Positive Antibody Screen Negative Discharge Plan Discharge Attending physician on discharge: Edgardo Ni Consulting providers: Uriel Ying Discharging Clinician: Ariel Bhandari Patient Disposition: Home Activity: may shower, unlimited and as tolerated Diet: regular Discharge Instructions: * Discharge disposition: * Follow-up with surgeon Dr. Ying as instructed * Follow-up with primary care provider within 1-2 weeks * Return to the emergency department if he developed sudden shortness breath, chest pain, fever greater than 101.5 or any other worrisome symptoms * Dressing changes per surgery * Thank you for choosing [facility] for your healthcare needs Patient Instructions: Antibiotic Form Patient Language: Hebrew Stand Alone Forms: General Discharge Information Follow-up/Referrals: Lottie Holt MD [Primary Care Provider] - 1 Week Uriel Ying MD [Physician] - Call for Appointment Discharge Medications: New aspirin 81 mg Tablet,Delayed Release (Dr/Ec) 81 mg PO Q12HR Qty: 60 0RF oxycodone 5 mg Tablet 5 mg PO Q4H PRN (Reason: pain) Qty: 18 0RF Continued folic acid 1 mg tablet 1 mg PO DAILY methotrexate sodium 2.5 mg tablet 2.5 mg PO WEEKLY Rx Instructions: takes 2.5 mg tablet every Monday pravastatin 40 mg tablet 40 mg PO DAILY lisinopril 5 mg tablet 5 mg PO DAILY omeprazole 20 mg Capsule,Delayed Release(Dr/Ec) 20 mg PO DAILY levothyroxine 200 mcg tablet 200 mcg PO DAILY coQ10 (ubiquinol) 200 mg Capsule 200 mg PO DAILY wkareegk-lrqh-qjhtt-oreg-capry 100 mg-150 mg- 50 mg-150 mg Capsule 1 cap PO DAILY acetaminophen [Tylenol Arthritis Pain] 650 mg Tablet Extended Release 650 mg PO Q12H PRN (Reason: Pain) Men's One Daily 400-20-300 mcg Tablet 1 tablet PO DAILY omeprazole 10 mg capsule,delayed release(DR/EC) 10 mg PO DAILY fludrocortisone 0.1 mg tablet See Rx Instructions .ROUTE .COMPLEX Qty: 90 3RF Dose Instruction: Take 1 tablet by mouth once daily Rx Instructions: Take 1 tablet by mouth once daily Discontinued aspirin 81 mg tablet,delayed release (DR/EC) 81 mg PO DAILY Date of admission: 04/01/25 22:20 Primary Care Provider: Lottie Holt Admitting Provider: Edgardo Ni Attending physician on admission: Edgardo Ni Condition: Improved Quality VTE Prophylaxis VTE prophylaxis: mechanical ordered
[2025-04-03 14:25] VITALS: BP 118/63; PULSE 100; RESP 18; TEMP 36; O2SAT 99
--- NOTE | 2025-04-03 14:34 | WPDANESPN ---
Anes - Prog Note Post-Op Date/Time: 04/03/25 14:34 Cardiovascular status: normal Respiratory status: normal Airway patency: baseline Mental status: baseline Vital Signs: Last Vital Signs Temp 36.0 C L 04/03/25 14:25 Pulse 100 04/03/25 14:25 Resp 18 04/03/25 14:25 BP 118/63 04/03/25 14:25 Pulse Ox 99 04/03/25 14:25 O2 Del Method Room Air 04/03/25 09:14 O2 Flow Rate 2 04/02/25 21:37 Pain Score (VAS): 2 I/O: Intake & Output 04/02/25 04/03/25 04/03/25 23:59 07:59 15:59 Intake Total 150 50 650 Output Total 600 Balance -450 50 650 Laboratory Tests 04/03/25 06:26 04/03/25 06:26 04/02/25 04/03/25 19:07 06:26 WBC 8.6 RBC 3.59 L Hgb 10.4 L Hct 33.2 L MCV 92.5 MCH 29.0 MCHC 31.3 L RDW 13.5 Plt Count 263 MPV 9.5 Immature Gran % (Auto) 0.2 Neut % (Auto) 84.0 H Lymph % (Auto) 7.7 L Nicholas % (Auto) 7.6 Eos % (Auto) 0.0 Baso % (Auto) 0.5 Lymph # (Auto) 0.66 L Nicholas # (Auto) 0.7 H Eos # (Auto) 0.0 Baso # (Auto) 0.0 Abs Immat Gran (auto) 0.02 Absolute Neuts (auto) 7.2 H Absolute Nucleated RBC 0.000 Nucleated RBC % 0.0 Sodium 139 Potassium 5.3 H Chloride 110 H Carbon Dioxide 20 L Anion Gap 9 BUN 36 H Creatinine 1.89 H Estim Creat Clear Calc 33 Estimated GFR 35 L Glucose 125 H Calcium 8.2 L Magnesium 2.1 Total Bilirubin 0.3 AST 32 ALT 16 Alkaline Phosphatase 48 Total Protein 6.0 L Albumin 3.2 L Blood Type A Positive Antibody Screen Negative Patient Feedback: Patient satisfied with anesthetic care.
== END 2025-04-03 18:00 | disposition home or self-care (01) | DRG 522 ==
LOC: ANH3MEDSUR 04-03 16:43 → ANH2MED 04-04 16:27 → ANH3MEDSUR 04-04 16:27
PROVIDERS: Orthopaedic Surgery; Admitting Provider Internal Medicine; PCP Internal Medicine; Visit Provider Nurse Practitioner
PROC: 0SRS01A Replacement of Left Hip Joint, Femoral Surface with Metal Synthetic Substitute, Uncemented, Open Approach (ICD-10-PCS; CPT 27125; principal; 2025-04-02 17:00)
DX: S72.002A Fracture of unspecified part of neck of left femur, initial encounter for closed fracture (principal); N18.32 Chronic kidney disease, stage 3b; I12.9 Hypertensive chronic kidney disease with stage 1 through stage 4 chronic kidney disease, or unspecified chronic kidney disease; I71.40 Abdominal aortic aneurysm, without rupture, unspecified; E03.9 Hypothyroidism, unspecified; E78.5 Hyperlipidemia, unspecified; M06.9 Rheumatoid arthritis, unspecified; W11.XXXA Fall on and from ladder, initial encounter; Z87.891 Personal history of nicotine dependence; Z79.82 Long term (current) use of aspirin
CPT/HCPCS: 36415; 73502; 80048; 80053; 83735; 85025; 85027; 86850; 86900; 86901; 97161; 97165; 97530; 97535; A9270; C1713; C1776; J0360; J0690; J1100; J1171; J2003; J2004; J2405; J2704; J3010; J7030; J7120

== ENCOUNTER 2025-05-14 10:39 | Outpatient (RCR) | payer MEDICARE, SELFPAY ==
--- NOTE | 2025-05-14 11:48 | OPREHPOC ---
Outpatient Therapy Plan of Care This is a Multidisciplinary Plan of Care that may contain components documented by all disciplines (PT, OT, and ST.) PT Problem 1 PT Problem #1 Knowledge Deficit PT Goal 1 Goal / Goal Update The patient will demonstrate independence in a home exercise program. Target Visit 4 PT Problem 2 PT Problem #2 Pain PT Goal 1 Goal / Goal Update The patient will report no greater than 1/10 left hip pain with ADLs and return to walking without an AD. Target Visit 8 PT Problem 3 PT Problem #3 Impaired Functional Mobility PT Goal 1 Goal / Goal Update The patient will demonstrate 20% or less self perceived disability per the LEFS questionnaire. The patient will ambulate 1,200 feet without an AD during the 6 MWT to improve community ambulation. Target Visit 8 PT Problem 4 PT Problem #4 Impaired Balance PT Goal 1 Goal / Goal Update The patient will demonstrate 25/28 on the Tinetti Balance Scale to lower fall risk. The patient will improve 5 times STS to 14 seconds or less without use of the UE. Target Visit 8 PT Problem 5 PT Problem #5 Impaired Strength PT Goal 1 Goal / Goal Update The patient will demonstrate at least 4/5 L hip strength to return to his previous active lifestyle.
--- NOTE | 2025-05-14 11:48 | PTOPEVAL1 ---
Assessment and note entered by Kelley Fleming, PT Evaluation Information Assessment Status Evaluation ICD-10 Condition Codes (PT) Pain in left hip M25.552,Encounter for other orthopedic aftercare Z47.89,Aftercare following joint replacement surgery Z47.1 Onset 04/01/25 Subjective Information Shantanu Conrad reports he had a fall off a ladder trying to clean his gutters on and fractured his left hip. He had a hemiarthroplasty on 04/03/25. He reports prior to his injury he walked every morning for 25 minutes. Since surgery, he has been using a walker to get around. He reports he has not been having pain since the first week after surgery. He has been taking the 4 steps into/out of his house one step at a time. He has not had any physical therapy since surgery. He is planning to travel to [place] at the end of the month to watch his granddaughter play softball. He also would like to get back to walking every morning. Reported Pain Level Pain Score 0: Self Report Assessment PT Clinical Summary Shantanu Conrad presents 6 weeks s/p L hip hemiarthroplasty after a fall causing a left femoral neck fracture. He has difficulty with walking, stairs, house chores, and yard work. Prior to his injury and surgery, he walked every morning for 25 minutes and mowed 2.5 acres. He is also active following his granddaughter with her travel softball. He objectively demonstrates decreased left hip AROM, decreased left hip strength, altered gait, decreased balance, and decreased functional mobility. He will benefit from skilled PT to address these limitations. Plan of Care Interventions Electrical Stimulation,Gait Training,Hot Pack/Cold Pack,Manual Therapy,Neuro Re-education,Patient/ Caregiver Education,Therapeutic Activities, Therapeutic Exercise PT Services Indicated Yes Treatment Frequency and 2 times a week for 8 visits Duration These treatments will address the objective and functional deficits as defined above. The patient will be advanced safely and appropriately in order for the patient to progress towards his/her prior level of function. Additional exercises will be introduced and as well as a comprehensive home exercise program upon discharge, if needed, ?to ensure carryover of functional gains achieved in the clinic. This treatment plan has been reviewed and agreement upon by the patient.
--- NOTE | 2025-06-19 17:16 | OPREHPOC ---
Outpatient Therapy Plan of Care This is a Multidisciplinary Plan of Care that may contain components documented by all disciplines (PT, OT, and ST.) PT Problem 1 PT Problem #1 Knowledge Deficit PT Goal 1 Goal / Goal Update The patient will demonstrate independence in a home exercise program. Target Visit 4 Progress Not Met PT Problem 2 PT Problem #2 Pain PT Goal 1 Goal / Goal Update The patient will report no greater than 1/10 left hip pain with ADLs and return to walking without an AD. Target Visit 8 Progress Met PT Problem 3 PT Problem #3 Impaired Functional Mobility PT Goal 1 Goal / Goal Update The patient will demonstrate 20% or less self perceived disability per the LEFS questionnaire. The patient will ambulate 1,200 feet without an AD during the 6 MWT to improve community ambulation. Target Visit 8 Progress Met PT Problem 4 PT Problem #4 Impaired Balance PT Goal 1 Goal / Goal Update The patient will demonstrate 25/28 on the Tinetti Balance Scale to lower fall risk. The patient will improve 5 times STS to 14 seconds or less without use of the UE. Target Visit 8 Progress Met PT Problem 5 PT Problem #5 Impaired Strength PT Goal 1 Goal / Goal Update The patient will demonstrate at least 4/5 L hip strength to return to his previous active lifestyle. -met for hip flexion and extension but not for abduction Progress Partially Met
--- NOTE | 2025-06-19 17:16 | PTOPDC ---
Assessment and note entered by Landy Jordan, PT Evaluation Information Assessment Status Discharge ICD-10 Condition Codes (PT) Pain in left hip M25.552,Encounter for other orthopedic aftercare Z47.89,Aftercare following joint replacement surgery Z47.1 Onset 04/01/25 Subjective Information Mr. Conrad was seen for his 8th skilled PT visit for left hip pain following hemiarthroplasty on 2024. He has returned to going on daily walks without difficulty, taking his cane with him as a precaution but not using it, as well as performing other functional activities such as mowing grass. He reports he has not been doing his exercises but is feeling improved overall and denies pain. Reported Pain Level Pain Score 0: Self Report Pain Score 0: Self Report Assessment PT Clinical Summary Mr. Conrad attended 8 skilled PT visits addressing L hip pain following hemiarthroplasty on 04/01/2025. He no longer has pain and has returned to full participation in daily activities such as morning walks without AD and mowing grass. He has not been performing his home exercise program despite education but he has met or partially met all other therapeutic goals addressing hip strength, balance and functional mobility and is therefore appropriate for discharge from skilled PT this date. Plan of Care PT Services Indicated No
== END 2025-06-19 17:57 | disposition home or self-care (01) ==
LOC: CHSPT 10:39
PROVIDERS: PCP Internal Medicine; Visit Provider Internal Medicine
DX: M25.552 Pain in left hip (principal); Z47.89 Encounter for other orthopedic aftercare; Z47.1 Aftercare following joint replacement surgery
CPT/HCPCS: 97110; 97112; 97116; 97150; 97161; 97530

== ENCOUNTER 2025-08-19 08:08 | Outpatient (CLI) | payer MEDICARE, SELFPAY ==
--- NOTE | ~2025-08-19 | US_ITS ---
Clinical History: BL Carotid Bruit Examination: US carotid duplex BI Comparison: 02/02/2022 Technique: Grayscale, color, duplex/spectral Doppler sonography carotid and vertebral arteries. Distal CCA and Peak ICA systolic velocities provided. Society of Radiologists in Ultrasound (SRU) consensus criteria utilized, indirectly assessing stenosis by velocities. Findings: Mild plaque. Right side: CCA - 79 cm/sec. ICA - 102 cm/sec. ICA/CCA - 1.3 Left Side: CCA - 80 cm/sec. ICA - 109 cm/sec. ICA/CCA - 1.4 Normal antegrade flow measured bilateral vertebral arteries. IMPRESSION: 1. No hemodynamically significant ICA stenosis (i.e., if any stenosis, less than 50%). 2. Normal bilateral antegrade vertebral artery flow. Stenosis measured by Society of Radiologists in Ultrasound (SRU) criteria. Reviewed, dictated and finalized at location R. IMPRESSION: 1. No hemodynamically significant ICA stenosis (i.e., if any stenosis, less th an 50%). 2. Normal bilateral antegrade vertebral artery flow. Stenosis measured by Society of Radiologists in Ultrasound (SRU) criteria.
--- OUTSIDE RECORDS SUMMARY | 2025-08-19 08:24 | XMS_ITS | Clinical Summary ---
Author Organization [facility] Address [address] [place] [id number] Phone Care Team Providers Care [employer] Name Role Phone Lottie Holt MD Primary Care Provider [phone] Allergies Active Allergy Reactions Criticality Noted Date [...] / Low and Medium Risk (1 of 2 - PCV) 1997 Influenza Vaccine (#1) 2025 Insurance MEDICARE [facility] Care Teams [employer] Relationship Specialty Start Date End Date Lottie Holt MD [address] [place] [address] PCP - General Internal Medicine 03/31/22
== END 2025-08-19 08:09 | disposition home or self-care (01) ==
PROVIDERS: PCP Internal Medicine; Visit Provider Internal Medicine
DX: R09.89 Other specified symptoms and signs involving the circulatory and respiratory systems (principal)
CPT/HCPCS: 93880